=== PATIENT | female | born 1930 | race Caucasian/White ===

== ENCOUNTER 2017-02-06 09:24 | Inpatient (IN) | payer BC, OTHER ==
[2017-02-06] MEDS ORDERED: ACETAMINOPHEN 1000 MG/100 ML VIAL (NON FORMULARY) IVPB ONE (09:40)
[2017-02-06] MEDS ORDERED: HYDROmorphone HCL CARPU-JECT 1 MG/1 ML DISP.SYRIN IVPUSH ONE ×3 (09:40→15:17)
--- NOTE | 2017-02-06 09:47 | PDOC ---
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, and her doctor is aware of this Patient has a 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, and has chronic sciatica intermittently, radiating into her right thigh She did have a CT scan of her LS-spine on 08/25 She was admitted in August for intractable pain and also had a UTI at that time , and she was admitted for pain control, and then sent to rehabilitation She did see a interventional pain physician, and had an epidural injection, which did help for a while Patient has had a few weeks of progressive low back pain and sciatica, which came on spontaneously The pain has become excruciating in the past 24 hours, and she is in so much pain that she is having difficulty getting up to walk with her walker She did see her primary care physician, Dr. Epstein yesterday, and was started on mobic, which she states has not helped the pain She denies any dysuria urgency or frequency She denies any urine or bowel symptoms She denies any weakness in her leg She denies any fever or chills She denies any loss of sensation in her legs She denies any fall or injury as the cause of this pain exacerbation She denies any other complaints at this time, and the remainder of the review of systems is negative Patient is crying in pain, and arrives by ambulance Past History - Past Medical History Allergies/Adverse Reactions: Allergies Allergy/AdvReac Type Severity Reaction Status Date / Time No Known Allergies Allergy Verified 02/06/17 09:26 Home Medications: Ambulatory Orders Aspirin [Ecotrin] 81 mg PO DAILY 02/06/17 Calcium 250Mg/Vit-D 125 Units [Oscal 250 mg+D -] 1 combo PO DAILY 02/06/17 Diltiazem Cd [Cardizem Cd -] 300 mg PO DAILY 02/06/17 Docusate Sodium [Colace -] 200 mg PO DAILY 02/06/17 Hydrochlorothiazide [Hctz -] 12.5 mg PO DAILY 02/06/17 Latanoprost 0.005% Eye Drops [Xalatan 0.005% Eye Drops -] 1 drop .ROUTE HS 02/06 Levothyroxine [Synthroid -] 50 mcg PO ASDIR 02/06/17 Levothyroxine [Synthroid -] 100 mcg PO ASDIR 02/06/17 Lisinopril [Prinivil -] 40 mg PO DAILY 02/06/17 Losartan Potassium [Cozaar] 100 mg PO DAILY 02/06/17 Meloxicam [Mobic (Nf) -] 15 mg PO DAILY 02/06/17 Metformin HCl [Glucophage] 1,000 mg PO HS 02/06/17 Nebivolol HCl [Bystolic] 40 mg PO HS 02/06/17 Simvastatin [Zocor] 10 mg PO HS 02/06/17 Cancer: Yes (LEFT BREAST LUMPECTOMY) Diabetes: Yes HTN: Yes Thyroid Disease: Yes - Psycho/Social/Smoking Cessation Hx Anxiety: No Suicidal Ideation: No Smoking History: Never smoked Have you smoked in the past 12 months: No Number of Cigarettes Smoked Daily: 0 Cigars Per Day: 0 Hx Alcohol Use: No Drug/Substance Use Hx: No Substance Use Type: None *Physical Exam - Physical Exam Comments: 02/06/17 09:47 Physical exam GENERAL: The patient is awake, alert, and writhing in pain HEAD: Normal with no signs of trauma. EYES: sclera anicteric, conjunctiva are normal. ENT: Moist mucous membranes. NECK: Normal range of motion, supple LUNGS: Breath sounds equal, clear to auscultation bilaterally. No wheezes, and no crackles. HEART: Regular rate and rhythm, normal S1 and S2 without murmur, rub or gallop. ABDOMEN: Soft, nontender, normoactive bowel sounds. No guarding, no rebound. No masses appreciated. CHEST WALL: Patient is status post right mastectomy, and left lumpectomy EXTREMITIES: There is edema in the lower extremities bilaterally BACK: There is no point tenderness on the C-spine T-spine or LS-spine There is right paraspinal tenderness, and right buttock/sciatic area tenderness There is positive straight leg raising on the right for pain, but not numbness or tingling Motor strength is equal in the lower extremities bilaterally, with good dorsi flexion and plantar flexion of the feet bilaterally Intact in the lower extremities bilaterally NEUROLOGICAL: He is alert and answering questions, and moving all extremities PSYCH: Normal mood, normal affect. SKIN: Warm, Dry, ED Treatment Course - LABORATORY CBC & Chemistry Diagram: 02/08/17 09:35 02/08/17 09:35 - RADIOLOGY Radiology Studies Ordered: Category Date Time Status SPINE-LUMBAR SACRAL [RAD] Stat Radiology 02/06/17 09:41 Ordered Medical Decision Making - Medical Decision Making 02/06/17 09:52 Exacerbation exacerbation of severe low back pain with sciatica, patient is crying in pain, there is no other warm symptoms, although there is a remote history of breast cancer On patient's last admission, she was hyponatremic, with a sodium of 129, which did correct during the course of her inpatient stay I just received a call from the lab that her sodium is 121, which is significantly lower than her prior admission Will start gentle hydration with normal saline 02/06/17 10:39 EKG Normal sinus rhythm 70, normal axis Borderline first degree AV block QRS duration 112 ms QTC 440 Otherwise essentially normal EKG 02/06/17 10:49 Laboratory Results - last 24 hr 02/06/17 02/06/17 09:45 09:49 WBC 10.9 H RBC 4.24 Hgb 11.9 D Hct 35.8 MCV 84.5 MCHC 33.1 RDW 15.0 D Plt Count 425 D MPV 6.6 L Sodium 121 L* Potassium 4.0 Chloride 88 L D Carbon Dioxide 23 Anion Gap 10 BUN 18 Creatinine 0.7 Creat Clearance w eGFR > 60 Random Glucose 163 H Calcium 9.2 Total Bilirubin 0.6 AST 31 D ALT 15 Alkaline Phosphatase 101 H D Total Protein 7.3 Albumin 4.0 Patient starting to feel more comfortable with pain meds Patient being gently hydrated with normal saline Has not produced a urine specimen yet Patient did have a CT of her LS-spine with her last admission, and has not fallen or injured herself since that time Would hold off on repeating the CT of the L-spine at this time, MRI may be more helpful at this time Impression, intractable back pain with sciatica, and severe hyponatremia 02/06/17 11:01 Case discussed with hospitalist-will admit *DC/Admit/Observation/Transfer Diagnosis at time of Disposition: Back pain with sciatica, Hyponatremia - Discharge Dispostion Condition at time of disposition: Stable Admit: Yes
[2017-02-06] MEDS ORDERED: ACETAMINOPHEN INJECTION 100 ML IVPB ONE (09:51)
[2017-02-06] MEDS ORDERED: HYDROmorphone HCL CARPU-JECT 2 MG/1 ML DISP.SYRIN ONE ×3 (09:51→15:20)
[2017-02-06 09:54] LABS: MCHC 33.1 g/dl (32.0-36.0); MEAN CELL VOLUME 84.5 fl (80-96); MEAN PLT VOLUME 6.6 fl (7.5-11.1); PLATELET COUNT 425 K/MM3 (134-434); WHITE BLOOD COUNT 10.9 K/mm3 (4.0-10.0)
[2017-02-06 10:14] LABS: ALK PHOS 101 U/L (32-92); ANION GAP 10 (8-16); BILIRUBIN,TOTAL 0.6 mg/dl (0.2-1.0); CALCIUM 9.2 mg/dl (8.4-10.2); CO2 23 mmol/L (22-28); CREATININE 0.7 mg/dl (0.6-1.3); GLUCOSE,RANDOM 163 mg/dl (74-106); SGOT/AST 31 U/L (10-42); SGPT/ALT 15 U/L (10-40); TOT PROT 7.3 g/dl (6.4-8.3)
[2017-02-06] MEDS ORDERED: SODIUM CHLORIDE 1,000 ML IV SCH ×2 (10:45→14:45)
[2017-02-06 10:49] LABS: CPK(DFH) 47 IU/L (26-140)
[2017-02-06 11:00] LABS: TROPONIN I (DFP) < 0.03 ng/ml (0.03-0.50)
[2017-02-06 11:30] LABS: URINE APPEARANCE Clear; URINE BILIRUBIN Negative (NEGATIVE); URINE BLOOD Negative (NEGATIVE); URINE GLUCOSE (UA) Negative (NEGATIVE); URINE KETONE Negative (NEGATIVE); URINE LEUK ESTERASE Negative (NEGATIVE); URINE NITRITE Negative (NEGATIVE); URINE UROBILINOGEN 0.2 E.U/dl (0.2-1.0)
[2017-02-06 11:43] LABS: URINE COLOR YELLOW; URINE PROTEIN 2+ (NEGATIVE)
[2017-02-06 11:44] LABS: URINE BACTERIA FEW /hpf (NEGATIVE); URINE RBC 0-3 /hpf (0-3); URINE WBC 0-3 (3-5)
[2017-02-06] MEDS ORDERED: LEVOTHYROXINE NA 50 MCG TABLET (FP) PO SCH (14:30)
[2017-02-06] MEDS ORDERED: LEVOTHYROXINE NA 100 MCG TABLET (FP) PO SCH (14:30)
[2017-02-06] MEDS ORDERED: oxyCODONE HCL 5 MG TABLET PO PRN (14:33)
[2017-02-06] MEDS ORDERED: ONDANSETRON 4 MG/2 ML VIAL IVPB PRN (14:42)
[2017-02-06] MEDS ORDERED: ONDANSETRON 4 MG/2 ML VIAL IVPB ONE (14:50)
[2017-02-06 19:36] LABS: CALCIUM 8.6 mg/dl (8.4-10.2); CREATININE 0.7 mg/dl (0.6-1.3)
[2017-02-06] MEDS ORDERED: PT OWN MED DRAWER 7, Y5N ONE (21:01)
[2017-02-06] MEDS: ATORVASTATIN CA 10 MG TABLET (FP) PO SCH (21:15)
[2017-02-06] MEDS: LATANOPROST 0.005% OPHTH SOLN 2.5ML BOTTLE OU SCH (21:15)
[2017-02-06] MEDS: DOCUSATE SODIUM 100 MG CAPSULE (FP) PO SCH (22:00)
[2017-02-06] MEDS ORDERED: PATIENT'S OWN MEDICATION (NON-FORMULARY) (Simvastatin 10 MG) PO SCH (22:00)
[2017-02-06] MEDS ORDERED: PATIENT'S OWN MEDICATION (NON-FORMULARY) (Metformin Hcl [Glucophage] 1,000 MG) PO SCH (22:00)
[2017-02-06] MEDS ORDERED: NEBIVOLOL HCL 40 MG PO SCH (22:00)
[2017-02-06] MEDS ORDERED: metFORMIN HCL 500 MG TABLET (FP) PO SCH (22:00)
[2017-02-06] MEDS: NEBIVOLOL 10 MG TABLET (FP) PO SCH (22:09)
[2017-02-06] MEDS: ACETAMINOPHEN 325 MG TABLET (FP) PO PRN (22:10)
--- NOTE | 2017-02-06 22:20 | HP ---
CHIEF COMPLAINT: back and leg pain PCP: Dr. Epstein, Cardio Dr. Castillo HISTORY OF PRESENT ILLNESS: This is a 86 year old female with a past medical history of BrCA, HTN, HLD, DM, hypothyroidism who presented to the ED with complaint of back pain radiating down right leg. Pt states she is having difficulty walking due to the pain. Improved with medication in ED. Pt denies chest pain, SOB, abdominal pain, N/V/ D. Reports she frequently gets constipation. Pt also reports that she has not been eating or drinking properly due to the pain. ER course was notable for: (1) given dilaudid 0.5mg x 3 doses Recent Travel: pt denies PAST MEDICAL/SURGICAL HISTORY: HTN HLD DM Hypothyroid s/p thyroidectomy 1960 Glaucoma R BrCA, s/p mastectomy, L lumpectomy colon polyps s/p removal, not cancerous Social History: Smoking: Pt denies Alcohol: Pt denies Drugs: Pt denies Family History:mother , BrCa age 55; father in his 60s, unknown ; 2 brothers with no PMH; son on dialysis; 3 daughters, healthy Allergies No Known Allergies Allergy (Verified 02/06/17 09:26) HOME MEDICATIONS: 3 Medication Instructions Recorded Aspirin [Ecotrin] 81 mg PO DAILY 02/06/17 Calcium 250Mg/Vit-D 125 Units 1 combo PO DAILY 02/06/17 [Oscal 250 mg+D -] Diltiazem Cd [Cardizem Cd -] 300 mg PO DAILY 02/06/17 Docusate Sodium [Colace -] 200 mg PO DAILY 02/06/17 Hydrochlorothiazide [Hctz -] 12.5 mg PO DAILY 02/06/17 Latanoprost 0.005% Eye Drops 1 drop .ROUTE HS 02/06/17 [Xalatan 0.005% Eye Drops -] Levothyroxine [Synthroid -] 50 mcg PO ASDIR 02/06/17 Levothyroxine [Synthroid -] 100 mcg PO ASDIR 02/06/17 Lisinopril [Prinivil -] 40 mg PO DAILY 02/06/17 Losartan Potassium [Cozaar] 100 mg PO DAILY 02/06/17 Meloxicam [Mobic (Nf) -] 15 mg PO DAILY 02/06/17 Metformin HCl [Glucophage] 1,000 mg PO HS 02/06/17 Nebivolol HCl [Bystolic] 40 mg PO HS 02/06/17 Simvastatin [Zocor] 10 mg PO HS 02/06/17 REVIEW OF SYSTEMS CONSTITUTIONAL: Absent: fever, chills, diaphoresis, generalized weakness, malaise, loss of appetite, weight change HEENT: Absent: rhinorrhea, nasal congestion, throat pain, throat swelling, difficulty swallowing, mouth swelling, ear pain, eye pain, visual changes CARDIOVASCULAR: Absent: chest pain, syncope, palpitations, irregular heart rate, lightheadedness , peripheral edema RESPIRATORY: Absent: cough, shortness of breath, dyspnea with exertion, orthopnea, wheezing, stridor, hemoptysis GASTROINTESTINAL: Absent: abdominal pain, abdominal distension, nausea, vomiting, diarrhea, constipation, melena, hematochezia GENITOURINARY: Absent: dysuria, frequency, urgency, hesitancy, hematuria, flank pain, genital pain MUSCULOSKELETAL: Present: back pain radiating down right leg Absent: myalgia, arthralgia, joint swelling, back pain, neck pain SKIN: Absent: rash, itching, pallor HEMATOLOGIC/IMMUNOLOGIC: Absent: easy bleeding, easy bruising, lymphadenopathy, frequent infections ENDOCRINE: Absent: unexplained weight gain, unexplained weight loss, heat intolerance, cold intolerance NEUROLOGIC: Absent: headache, focal weakness or paresthesias, dizziness, unsteady gait, seizure, mental status changes, bladder or bowel incontinence PSYCHIATRIC: Absent: anxiety, depression, suicidal or homicidal ideation, hallucinations. PHYSICAL EXAMINATION Vital Signs - 24 hr 3 02/06/17 02/06/17 02/06/17 15:00 15:19 16:14 Temperature 98.7 F 97.8 F 98.7 F Pulse Rate 76 76 Pulse Rate [ 81 Right] Respiratory 18 18 18 Rate Blood Pressure 141/53 141/53 Blood Pressure 178/65 [Left Arm] O2 Sat by Pulse 99 93 L Oximetry (%) 3 02/06/17 02/06/17 19:00 21:00 Temperature 99.3 F Pulse Rate 74 Pulse Rate [ Right] Respiratory 18 Rate Blood Pressure 124/49 Blood Pressure [Left Arm] O2 Sat by Pulse 96 Oximetry (%) GENERAL: Awake, alert, and fully oriented, in no acute distress. HEAD: Normal with no signs of trauma. EYES: Pupils equal, round and reactive to light, extraocular movements intact, sclera anicteric, conjunctiva clear. No lid lag. EARS, NOSE, THROAT: Ears normal, nares patent, oropharynx clear without exudates. Moist mucous membranes. NECK: Normal range of motion, supple without lymphadenopathy, JVD, or masses. LUNGS: Breath sounds equal, crackles bilat bases. No wheezes. No accessory muscle use. HEART: Regular rate and rhythm, normal S1 and S2 without murmur, rub or gallop. ABDOMEN: Soft, nontender, not distended, normoactive bowel sounds, no guarding, no rebound, no masses. No hepatomegaly or splenomegaly. MUSCULOSKELETAL: Normal range of motion at all joints. No bony deformities or tenderness. No CVA tenderness. UPPER EXTREMITIES: 2+ pulses, warm, well-perfused. No cyanosis. No clubbing. No peripheral edema. LOWER EXTREMITIES: 2+ pulses, warm, well-perfused. No calf tenderness. trace peripheral edema. + pain on right straight leg raise NEUROLOGICAL: Cranial nerves II-XII intact. Normal speech. Normal gait. PSYCHIATRIC: Cooperative. Good eye contact. Appropriate mood and affect. SKIN: Warm, dry, normal turgor, no rashes or lesions noted, normal capillary refill. Laboratory Results - last 24 hr 3 02/06/17 02/06/17 02/06/17 09:45 09:49 10:34 WBC 10.9 H RBC 4.24 Hgb 11.9 D Hct 35.8 MCV 84.5 MCHC 33.1 RDW 15.0 D Plt Count 425 D MPV 6.6 L Sodium 121 L* Potassium 4.0 Chloride 88 L D Carbon Dioxide 23 Anion Gap 10 BUN 18 Creatinine 0.7 Creat Clearance w eGFR > 60 POC Glucometer Random Glucose 163 H Calcium 9.2 Total Bilirubin 0.6 AST 31 D ALT 15 Alkaline Phosphatase 101 H D Creatine Kinase 47 Troponin I < 0.03 L Total Protein 7.3 Albumin 4.0 Urine Color Urine Appearance Urine pH Ur Specific [place] Urine Protein Urine Glucose (UA) Urine Ketones Urine Blood Urine Nitrite Urine Bilirubin Urine Urobilinogen Ur Leukocyte Esterase Urine RBC Urine WBC Ur Epithelial Cells Urine Bacteria Hyaline Casts 3 02/06/17 02/06/17 02/06/17 11:30 18:50 22:17 WBC RBC Hgb Hct MCV MCHC RDW Plt Count MPV Sodium 122 L* Potassium 3.7 Chloride 89 L Carbon Dioxide 23 Anion Gap 10 BUN 17 Creatinine 0.7 Creat Clearance w eGFR POC Glucometer 149 Random Glucose 211 H D Calcium 8.6 Total Bilirubin AST ALT Alkaline Phosphatase Creatine Kinase Troponin I Total Protein Albumin Urine Color Yellow Urine Appearance Clear Urine pH 7.0 Ur Specific [place] 1.020 Urine Protein 2+ H Urine Glucose (UA) Negative Urine Ketones Negative Urine Blood Negative Urine Nitrite Negative Urine Bilirubin Negative Urine Urobilinogen 0.2 e.u/dl Ur Leukocyte Esterase Negative Urine RBC 0-3 Urine WBC 0-3 Ur Epithelial Cells Few Urine Bacteria Few Hyaline Casts 3-5 ASSESSMENT/PLAN: 86yF with PMH BrCA, HTN, HLD, DM, hypothyroidism who presented to the ED with complaint of back pain radiating down right leg. She has been admitted for observation for intractable back pain. Intractable back pain - previous hospitalization for same in August. - will start robaxin and celebrex as they were effective at this that time - cont oxycodone, start miralax for constipation - pain management consult hyponatremia - cont gentle iv hydration. Hold HCTZ HTN - cont home medications except HCTZ HLD - home zocor changed to formulary lipitor DM - BGM with Novolog SS TID AC & HS PPX - lovenox 40mg SC qd - protonix 20mg QD while on celebrex FEN - NS @75cc/hr - BMP repeat in am - diabetic diet Dispo: pt currently requires inpatient observation for management of her emergent condition. Visit type - Emergency Visit Emergency Visit: Yes ED Registration Date: 02/06/17 Care time: The patient presented to the Emergency Department on the above date and was hospitalized for further evaluation of their emergent condition. - New Patient This patient is new to me today: Yes Date on this admission: 02/06/17 - Critical Care Critical Care patient: No
[2017-02-06] MEDS: METHOCARBAMOL 500 MG TABLET PO SCH (22:56)
[2017-02-07] MEDS: METHOCARBAMOL 500 MG TABLET PO SCH ×3 (06:22→22:04)
[2017-02-07] MEDS: INSULIN SLIDING SCALE (NOVOLOG) 1 VIAL SQ SCH ×4 (06:29→22:09)
[2017-02-07 08:58] LABS: BASOPHIL 0.7 % (0-2.0); EOSINOPHIL 0.6 % (0-4.5); MCH 28.4 pg (25.7-33.7); MCHC 33.3 g/dl (32.0-36.0); MEAN CELL VOLUME 85.1 fl (80-96); NEUTROPHILS 69.9 % (42.8-82.8); PLATELET COUNT 339 K/MM3 (134-434); RDW 15.4 % (11.6-15.6); WHITE BLOOD COUNT 9.3 K/mm3 (4.0-10.0)
[2017-02-07 09:11] LABS: ALBUMIN 3.1 g/dl (3.5-5.0); ALK PHOS 74 U/L (32-92); ANION GAP 6 (8-16); BILIRUBIN,TOTAL 0.5 mg/dl (0.2-1.0); CALCIUM 8.1 mg/dl (8.4-10.2); CO2 25 mmol/L (22-28); CREATININE 0.7 mg/dl (0.6-1.3); GLUCOSE,RANDOM 103 mg/dl (74-106); MAGNESIUM 1.6 mg/dL (1.8-2.4); PHOSPHOROUS 3.4 mg/dl (2.5-4.6); SGOT/AST 20 U/L (10-42); SGPT/ALT 13 U/L (10-40); TOT PROT 5.5 g/dl (6.4-8.3)
[2017-02-07] MEDS ORDERED: PT OWN MED DRAWER 7, Y5N ONE ×2 (09:26→22:01)
[2017-02-07] MEDS: DILTIAZEM CD 120 MG, DILTIAZEM CD 180 MG PO SCH (09:28)
[2017-02-07] MEDS: ASPIRIN COATED 81 MG TABLET.EC PO SCH (09:29)
[2017-02-07] MEDS: POLYETHYLENE GLYCOL 3350 119 GM BTL PO SCH (09:29)
[2017-02-07] MEDS: LOSARTAN POTASSIUM 50 MG TABLET (FP) PO SCH (09:29)
[2017-02-07] MEDS: CALCIUM 250MG/VIT-D 125 UNITS 1 COMBO TABLET PO SCH (09:36)
[2017-02-07] MEDS ORDERED: PATIENT'S OWN MEDICATION (NON-FORMULARY) (Losartan Potassium [Cozaar] 100 MG) PO SCH (10:00)
[2017-02-07] MEDS ORDERED: LISINOPRIL 20 MG TABLET (FP) PO SCH (10:00)
[2017-02-07] MEDS ORDERED: RANITIDINE HCL 150 MG TABLET (FP) PO SCH (10:00)
[2017-02-07] MEDS ORDERED: CELECOXIB 200 MG CAPSULE PO SCH (10:00)
[2017-02-07] MEDS ORDERED: NEBIVOLOL 10 MG TABLET (FP) PO SCH (10:00)
[2017-02-07] MEDS ORDERED: PATIENT'S OWN MEDICATION (NON-FORMULARY) (Lisinopril [Prinivil -] 40 MG) PO SCH (10:00)
[2017-02-07] MEDS ORDERED: PATIENT'S OWN MEDICATION (NON-FORMULARY) (Meloxicam 15 MG) PO SCH (10:00)
[2017-02-07] MEDS ORDERED: DOCUSATE SODIUM 100 MG CAPSULE (FP) PO SCH (10:00)
[2017-02-07] MEDS ORDERED: PANTOPRAZOLE 20 MG TABLET (FP) PO SCH (10:00)
[2017-02-07] MEDS ORDERED: ENOXAPARIN NA (PORCINE) 40 MG/0.4 ML DISP.SYRIN SQ SCH (10:00)
--- NOTE | 2017-02-07 10:32 | PN ---
[id number] OBJECTIVE: patient is a 86 year old female with a past medical history of BrCA, HTN, HLD, DM, hypothyroidism. patient was admitted from the hospital for intractable back pain and hyponatremia. Vital Signs Period Temp Pulse Resp BP Sys/[place] Pulse Ox Last 24 Hr 97.8 F-99.9 F 69-81 17-18 124-178/49-65 93-100 GENERAL: The patient is awake, alert, and fully oriented, in no acute distress. HEAD: Normal with no signs of trauma. EYES: PERRL, extraocular movements intact, sclera anicteric, conjunctiva clear. No ptosis. ENT: Ears normal, nares patent, oropharynx clear without exudates, moist mucous membranes. NECK: Trachea midline, full range of motion, supple. LUNGS: Breath sounds equal, clear to auscultation bilaterally to apexes, crackles to bilateral bases, no wheezes, no accessory muscle use. HEART: Regular rate and rhythm, S1, S2 without murmur, rub or gallop. ABDOMEN: Soft, nontender, nondistended, normoactive bowel sounds, no guarding, no rebound, no hepatosplenomegaly, no masses. EXTREMITIES: 2+ pulses, warm, well-perfused, no edema. paraspinal tenderness noted to L4-L5, point tenderness noted to the sciatic notch NEUROLOGICAL: Cranial nerves II through XII grossly intact. Normal speech, gait not observed. PSYCH: Normal mood, normal affect. SKIN: Warm, dry, normal turgor, no rashes or lesions noted Laboratory Results - last 24 hr 02/06/17 02/06/17 02/07/17 18:50 22:17 06:28 WBC RBC Hgb Hct MCV MCHC RDW Plt Count MPV Neutrophils % Lymphocytes % Monocytes % Eosinophils % Basophils % Sodium 122 L* Potassium 3.7 Chloride 89 L Carbon Dioxide 23 Anion Gap 10 BUN 17 Creatinine 0.7 POC Glucometer 149 122 Random Glucose 211 H D Calcium 8.6 02/07/17 07:34 WBC 9.3 RBC 3.31 L D Hgb 9.4 L D Hct 28.2 L D MCV 85.1 MCHC 33.3 RDW 15.4 Plt Count 339 D MPV 7.0 L Neutrophils % 69.9 Lymphocytes % 17.7 D Monocytes % 11.1 H D Eosinophils % 0.6 D Basophils % 0.7 Sodium Potassium Chloride Carbon Dioxide Anion Gap BUN Creatinine POC Glucometer Random Glucose Calcium Active Medications Generic Name Dose Route Start Last Admin Trade Name Freq PRN Reason Stop Dose Admin Acetaminophen 650 mg 02/06/17 14:20 02/06/17 22:10 Tylenol - PO 650 mg Q4H PRN Administration PAIN OR FEVER Aspirin 81 mg 02/07/17 10:00 02/07/17 09:29 Ecotrin - PO 81 mg DAILY [facility] Administration Atorvastatin Calcium 10 mg 02/06/17 22:00 02/06/17 21:15 Lipitor - PO 10 mg HS [facility] Administration Calcium/Vitamin D 1 tab 02/07/17 10:00 02/07/17 09:36 Oscal 250 Mg+D - PO 1 tab DAILY [facility] Administration Celecoxib 200 mg 02/07/17 10:00 02/07/17 09:28 Celebrex - PO 200 mg DAILY [facility] Administration Diltiazem HCl 120 mg/ 300 mg 02/07/17 10:00 02/07/17 09:28 Diltiazem HCl 180 mg PO 300 mg DAILY [facility] Administration Docusate Sodium 200 mg 02/06/17 22:00 02/06/17 22:00 Colace - PO 200 mg HS [facility] Administration Enoxaparin Sodium 40 mg 02/07/17 10:00 02/07/17 09:29 Lovenox - SQ 40 mg DAILY [facility] Administration Sodium Chloride 1,000 mls @ 75 mls/hr 02/06/17 14:45 Normal Saline - IV ASDIR [facility] Insulin Aspart 1 vial 02/07/17 07:00 02/07/17 06:29 Novolog Vial Sliding Scale - SQ Not Given ACHS [facility] Protocol Latanoprost 1 drop 02/06/17 22:00 02/06/17 21:15 Xalatan 0.005% Eye Drops - OU 1 drop HS [facility] Administration Levothyroxine Sodium 150 mcg 02/07/17 11:00 Synthroid - PO DAILY@0700 [facility] Lisinopril 40 mg 02/07/17 10:00 02/07/17 09:28 Prinivil PO 40 mg DAILY [facility] Administration Losartan Potassium 100 mg 02/07/17 10:00 02/07/17 09:29 Cozaar - PO 100 mg DAILY [facility] Administration Metformin HCl 1,000 mg 02/06/17 22:00 02/06/17 21:15 Glucophage - PO 1,000 mg HS [facility] Administration Methocarbamol 1,000 mg 02/06/17 22:30 02/07/17 06:22 Robaxin - PO 1,000 mg TID [facility] Administration Nebivolol 40 mg 02/06/17 22:00 02/06/17 22:09 Bystolic - PO 40 mg HS [facility] Administration Ondansetron HCl 4 mg 02/06/17 14:42 Zofran Injection IVPB TID PRN NAUSEA AND/OR VOMITING Oxycodone HCl 5 mg 02/06/17 14:33 Roxicodone - PO Q6H PRN PAIN Pantoprazole Sodium 20 mg 02/07/17 10:00 02/07/17 09:30 Protonix - PO 20 mg DAILY [facility] Administration Polyethylene Glycol 17 gm 02/07/17 10:00 02/07/17 09:29 Miralax (For Daily Use) - PO 17 gm DAILY [facility] Administration imaging Chest x-ray: Mild increase density to the left lung base, may be related to soft tissue overlying, no infiltrates noted effusions noted ASSESSMENT/PLAN: 1)Intractable back pain - continue Robaxin and Celebrex, with when necessary oxycodone - Patient does have a history of breast CA and passed reports worsening of back pain, will order MRI of lumbar spine to rule out metastasis - appreciate input of Dr Nath (pain managment), patient has been evaluated by as an outpatient 2) card htm - continue Losartan and atenolol hld - continue lipitor 3) endo: - Continue fingersticks before meals and at bedtime with regular insulin coverage Hypothyroidism - Levothyroxine verified with [facility] pharmacy patient takes 50 g levothyroxine for 5 daysthen 100 mg of levothyroxin for 2 days 4) hyponatremia - serum sodium 120 after IV hydration, IV fluids discontinued, stop Protonix - appreicate nput of nephrology F/E/N -Regular Diabetic diet - replete electrolytes as needed PPX - stop Protonix secondary to hyponatremia start Zantac - Lovenox - Physical therapy - OOB - SCD Dispo: requires in patient observation care Visit type - Emergency Visit Emergency Visit: Yes ED Registration Date: 02/06/17 Care time: The patient presented to the Emergency Department on the above date and was hospitalized for further evaluation of their emergent condition. - New Patient This patient is new to me today: Yes Date on this admission: 02/07/17 - Critical Care Critical Care patient: No - Discharge Referral Referred to [facility] Med P.C.: No
[2017-02-07] MEDS ORDERED: MAGNESIUM SULFATE 2 GM in SODIUM CHLORIDE 100 ML IVPB ONE (10:34)
[2017-02-07] MEDS ORDERED: LEVOTHYROXINE NA 150 MCG TABLET PO SCH (11:00)
[2017-02-07] MEDS ORDERED: MAGNESIUM SULF 50% (8.12 MEQ/2 ML-1 GM VIAL) IVPB ONE (11:15)
[2017-02-07] MEDS ORDERED: POTASSIUM CHLORIDE TABS 20 MEQ TABLET.ER (FP) PO ONE (12:10)
--- NOTE | 2017-02-07 12:22 | EKG ---
Test Reason : Blood Pressure : / mmHG Vent. Rate : 070 BPM Atrial Rate : 070 BPM P-R Int : 192 ms QRS Dur : 112 ms QT Int : 408 ms P-R-T Axes : 085 017 007 degrees QTc Int : 440 ms NORMAL SINUS RHYTHM NON-SPECIFIC INTRA-VENTRICULAR CONDUCTION BLOCK NO PREVIOUS ECGS AVAILABLE Confirmed by MD SAVANNA, MELLY ([id number]) on 02/07/2017 12:22:20 PM Referred By: IZABELA HERNANDEZ Confirmed By:MELLY CORRALES MD
[2017-02-07] MEDS ORDERED: INSULIN (NOVOLOG) ASPART 100 UNITS/ML 10ML VIAL ONE ×2 (16:50→22:08)
--- NOTE | 2017-02-07 18:00 | CONSULT ---
Consult Consult Specialty:: Nephrology Reason for Consultation:: hyponatremia - History of Present Illness Chief Complaint: back pain History of Present Illness: Pt is an 86 year old female with pmhx of HTN, breast cancer, hyperlipidemia, hypothyroidism and arthritis who presents to the ER with back pain. She has history of arthritis and says that it has been difficult to deal with. She was found to be hyponatremic and I was called to evaluate her. She denies history of hyponatremia however did have an episode in the past based on her chart. Pt says she was on hctz 12.5 for years and the dose was recently increased to 25 mg. She is on NSAIDs. She also says she does try to drink "alot" of water. She denies shortness of breath. She denies dysuria or hematuria. - History Source History Provided By: Patient, Medical Record - Past Medical History Cardio/Vascular: Yes: HTN, Hyperlipdemia Heme/Onc: Yes: Cancer, Other (breast cancer) Musculoskeletal: Yes: Chronic low back pain, Osteoarthritis Endocrine: Yes: Hypothyroidism - Alcohol/Substance Use Hx Alcohol Use: No - Smoking History Smoking history: Never smoked Have you smoked in the past 12 months: No Aproximately how many cigarettes per day: 0 Home Medications - Allergies Allergies/Adverse Reactions: Allergies Allergy/AdvReac Type Severity Reaction Status Date / Time No Known Allergies Allergy Verified 02/06/17 09:26 - Home Medications Home Medications: Ambulatory Orders Aspirin [Ecotrin] 81 mg PO DAILY 02/06/17 Calcium 250Mg/Vit-D 125 Units [Oscal 250 mg+D -] 1 combo PO DAILY 02/06/17 Diltiazem Cd [Cardizem Cd -] 300 mg PO DAILY 02/06/17 Docusate Sodium [Colace -] 200 mg PO DAILY 02/06/17 Hydrochlorothiazide [Hctz -] 12.5 mg PO DAILY 02/06/17 Latanoprost 0.005% Eye Drops [Xalatan 0.005% Eye Drops -] 1 drop .ROUTE HS 02/06 Levothyroxine [Synthroid -] 50 mcg PO ASDIR 02/06/17 Levothyroxine [Synthroid -] 100 mcg PO ASDIR 02/06/17 Lisinopril [Prinivil -] 40 mg PO DAILY 02/06/17 Losartan Potassium [Cozaar] 100 mg PO DAILY 02/06/17 Meloxicam [Mobic (Nf) -] 15 mg PO DAILY 02/06/17 Metformin HCl [Glucophage] 1,000 mg PO HS 02/06/17 Nebivolol HCl [Bystolic] 40 mg PO HS 02/06/17 Simvastatin [Zocor] 10 mg PO HS 02/06/17 Family Disease History - Family Disease History Family History: Denies Review of Systems - Review of Systems Constitutional: reports: No Symptoms Eyes: reports: No Symptoms HENT: reports: No Symptoms Neck: reports: No Symptoms Cardiovascular: reports: No Symptoms Respiratory: reports: No Symptoms Gastrointestinal: reports: No Symptoms Genitourinary: reports: No Symptoms Musculoskeletal: reports: Back Pain, Extremity Pain, Joint Pain Integumentary: reports: No Symptoms Neurological: reports: No Symptoms Endocrine: reports: No Symptoms Psychiatric: reports: No Symptoms Physical Exam Vital Signs: Vital Signs Temperature 97.9 F 02/07/17 14:29 Pulse Rate 71 02/07/17 14:29 Respiratory Rate 18 02/07/17 14:29 Blood Pressure 151/55 02/07/17 14:29 O2 Sat by Pulse Oximetry (%) 96 02/07/17 14:29 Constitutional: Yes: Calm Eyes: Yes: Conjunctiva Clear HENT: Yes: Atraumatic Neck: Yes: Supple Cardiovascular: Yes: S1, S2 Respiratory: Yes: CTA Bilaterally Gastrointestinal: Yes: Soft, Abdomen, Obese Renal/: Yes: WNL Musculoskeletal: Yes: Back Pain Edema: Yes Edema: LLE: 1+, RLE: 1+ Neurological: Yes: Oriented Psychiatric: Yes: Oriented Labs: CBC, BMP 02/07/17 07:34 02/07/17 07:34 Laboratory Tests 06/08/16 08/24/16 08/24/16 18:45 10:15 19:30 Sodium 135 L 129 L 138 Chloride Carbon Dioxide Anion Gap BUN Creatinine Hemoglobin A1c % 08/25/16 02/06/17 02/06/17 06:00 09:45 18:50 Sodium 139 121 L* 122 L* Chloride Carbon Dioxide Anion Gap BUN Creatinine Hemoglobin A1c % 02/07/17 02/07/17 07:34 07:34 Sodium 120 L* Chloride 89 L Carbon Dioxide 25 Anion Gap 6 L BUN 18 Creatinine 0.7 Hemoglobin A1c % 7.2 H D Imaging - Results Chest X-ray: Report Reviewed Problem List - Problems (1) Back pain with sciatica Code(s): M54.30 - SCIATICA, UNSPECIFIED SIDE M54.9 - DORSALGIA, UNSPECIFIED (2) Hyponatremia Code(s): E87.1 - HYPO-OSMOLALITY AND HYPONATREMIA (3) Back pain Code(s): M54.9 - DORSALGIA, UNSPECIFIED Qualifiers: Back pain location: low back pain Chronicity: acute Back pain laterality: right Sciatica presence: with sciatica Sciatica laterality: sciatica of right side Qualified Code(s): M54.41 - Lumbago with sciatica , right side (4) Hypertension Code(s): I10 - ESSENTIAL (PRIMARY) HYPERTENSION Assessment/Plan Current Medications Generic Name Dose Route Start Last Admin Trade Name Freq PRN Reason Stop Dose Admin Acetaminophen 650 mg 02/06/17 14:20 02/06/17 22:10 Tylenol - PO 650 mg Q4H PRN Administration PAIN OR FEVER Aspirin 81 mg 02/07/17 10:00 02/07/17 09:29 Ecotrin - PO 81 mg DAILY [facility] Administration Atorvastatin Calcium 10 mg 02/06/17 22:00 02/06/17 21:15 Lipitor - PO 10 mg HS [facility] Administration Calcium/Vitamin D 1 tab 02/07/17 10:00 02/07/17 09:36 Oscal 250 Mg+D - PO 1 tab DAILY [facility] Administration Celecoxib 200 mg 02/07/17 10:00 02/07/17 09:28 Celebrex - PO 200 mg DAILY [facility] Administration Diltiazem HCl 120 mg/ 300 mg 02/07/17 10:00 02/07/17 09:28 Diltiazem HCl 180 mg PO 300 mg DAILY [facility] Administration Docusate Sodium 200 mg 02/06/17 22:00 02/06/17 22:00 Colace - PO 200 mg HS [facility] Administration Enoxaparin Sodium 40 mg 02/07/17 10:00 02/07/17 09:29 Lovenox - SQ 40 mg DAILY [facility] Administration Insulin Aspart 1 vial 02/07/17 07:00 02/07/17 16:30 Novolog Vial Sliding Scale - SQ 2 unit ACHS [facility] Administration Protocol Latanoprost 1 drop 02/06/17 22:00 02/06/17 21:15 Xalatan 0.005% Eye Drops - OU 1 drop HS [facility] Administration Levothyroxine Sodium 50 mcg 02/08/17 07:00 Synthroid - PO TuWeThFrSa@0700 [facility] Levothyroxine Sodium 100 mcg 02/09/17 07:00 Synthroid - PO SuMo@0700 [facility] Lisinopril 40 mg 02/07/17 10:00 02/07/17 09:28 Prinivil PO 40 mg DAILY [facility] Administration Losartan Potassium 100 mg 02/07/17 10:00 02/07/17 09:29 Cozaar - PO 100 mg DAILY [facility] Administration Methocarbamol 1,000 mg 02/06/17 22:30 02/07/17 14:45 Robaxin - PO 1,000 mg TID [facility] Administration Nebivolol 40 mg 02/06/17 22:00 02/06/17 22:09 Bystolic - PO 40 mg HS [facility] Administration Ondansetron HCl 4 mg 02/06/17 14:42 Zofran Injection IVPB TID PRN NAUSEA AND/OR VOMITING Oxycodone HCl 5 mg 02/06/17 14:33 Roxicodone - PO Q6H PRN PAIN Polyethylene Glycol 17 gm 02/07/17 10:00 02/07/17 09:29 Miralax (For Daily Use) - PO 17 gm DAILY [facility] Administration Ranitidine HCl 150 mg 02/08/17 10:00 Zantac - PO DAILY [facility] Impression 1. Hyponatremia 2. HTN 3. hypothyroidism 4. osteoarthritis 5. chronic back pain 6. hyperlipidemia Plan - will send out workup for hyponatremia including plasma and urine osm, urine sodium, cortisol and tsh - repeat labs in am - will add sodium tabs - stop HCTZ - restrict free water - unclear why pt is on an jackie and an arb, will on lisinopril - monitor blood pressure - attempt to minimize nsaid doses - will follow Dr Smyth
[2017-02-07 20:08] LABS: THYROXINE (T4) 9.2 ug/dl (4.8-13.9)
[2017-02-07 20:14] LABS: THYROID STIMULATING HORMONE 2.85 uIU/ml (0.358-3.74)
[2017-02-07] MEDS: NEBIVOLOL 10 MG TABLET (FP) PO SCH (22:03)
[2017-02-07] MEDS: LATANOPROST 0.005% OPHTH SOLN 2.5ML BOTTLE OU SCH (22:04)
[2017-02-07] MEDS: DOCUSATE SODIUM 100 MG CAPSULE (FP) PO SCH (22:05)
[2017-02-07] MEDS: SODIUM CHLORIDE 1 GM TABLET PO SCH (22:06)
[2017-02-07] MEDS: ATORVASTATIN CA 10 MG TABLET (FP) PO SCH (22:06)
[2017-02-08] MEDS: METHOCARBAMOL 500 MG TABLET PO SCH ×3 (05:30→21:18)
[2017-02-08] MEDS: LEVOTHYROXINE NA 50 MCG TABLET (FP) PO SCH (06:20)
[2017-02-08] MEDS: INSULIN SLIDING SCALE (NOVOLOG) 1 VIAL SQ SCH ×4 (06:41→21:19)
[2017-02-08] MEDS ORDERED: LEVOTHYROXINE NA 50 MCG TABLET (FP) PO SCH (07:00)
[2017-02-08] MEDS ORDERED: LEVOTHYROXINE NA 100 MCG TABLET (FP) PO SCH (07:00)
--- NOTE | 2017-02-08 08:08 | CONSULT ---
Consult Consult Specialty:: back pain Referred by:: hospitalist Reason for Consultation:: back pain - History of Present Illness Chief Complaint: back pain History of Present Illness: 86 year old woman with a history of severe back pain. Patient was seen in my office several months ago and an DEON was performed which helped significantly with her leg pain. Currently she reports unrelenting back pain when standing and walking. Pain score 2/10 at rest and 10/10 with standing. MRI reviewed- NO official report available but there is an ACUTE l1 fx. - Past Medical History Cardio/Vascular: Yes: HTN, Hyperlipdemia Musculoskeletal: Yes: Chronic low back pain, Osteoarthritis Endocrine: Yes: Hypothyroidism - Alcohol/Substance Use Hx Alcohol Use: No - Smoking History Smoking history: Never smoked Have you smoked in the past 12 months: No Aproximately how many cigarettes per day: 0 Home Medications - Allergies Allergies/Adverse Reactions: Allergies Allergy/AdvReac Type Severity Reaction Status Date / Time No Known Allergies Allergy Verified 02/06/17 09:26 - Home Medications Home Medications: Ambulatory Orders Aspirin [Ecotrin] 81 mg PO DAILY 02/06/17 Calcium 250Mg/Vit-D 125 Units [Oscal 250 mg+D -] 1 combo PO DAILY 02/06/17 Diltiazem Cd [Cardizem Cd -] 300 mg PO DAILY 02/06/17 Docusate Sodium [Colace -] 200 mg PO DAILY 02/06/17 Hydrochlorothiazide [Hctz -] 12.5 mg PO DAILY 02/06/17 Latanoprost 0.005% Eye Drops [Xalatan 0.005% Eye Drops -] 1 drop .ROUTE HS 02/06 Levothyroxine [Synthroid -] 50 mcg PO ASDIR 02/06/17 Levothyroxine [Synthroid -] 100 mcg PO ASDIR 02/06/17 Lisinopril [Prinivil -] 40 mg PO DAILY 02/06/17 Losartan Potassium [Cozaar] 100 mg PO DAILY 02/06/17 Meloxicam [Mobic (Nf) -] 15 mg PO DAILY 02/06/17 Metformin HCl [Glucophage] 1,000 mg PO HS 02/06/17 Nebivolol HCl [Bystolic] 40 mg PO HS 02/06/17 Simvastatin [Zocor] 10 mg PO HS 02/06/17 Physical Exam Vital Signs: Vital Signs Temperature 98.8 F 02/08/17 05:40 Pulse Rate 68 02/08/17 05:40 Respiratory Rate 16 02/08/17 05:40 Blood Pressure 153/61 02/08/17 05:40 O2 Sat by Pulse Oximetry (%) 95 02/08/17 05:40 Musculoskeletal: Yes: Back Pain Labs: CBC, BMP 02/07/17 07:34 02/07/17 07:34 Assessment/Plan Acute l1 compression fracture Degenerative spine- chronic with spinal stenosis, herniated disc and spondylolisthesis 1. Patient would like to proceed with a kyphoplasty on Friday. 2. Please hold ASA if no contraindications and all anti-coagulants 3. THe procedure will most likely be around 3-4pm on Friday so have patient NPO after 7am. Please have the patient get an early breakfast Friday morning.
--- NOTE | 2017-02-08 09:21 | PN ---
Progress Note, Physician Chief Complaint: Pt c/o some dizziness and back pain when standing No N/V or diarrhea Has been on fluid restriction and off the HCTZ - Current Medication List Current Medications: Active Medications Acetaminophen (Tylenol -) 650 mg PO Q4H PRN PRN Reason: PAIN OR FEVER Last Admin: 02/06/17 22:10 Dose: 650 mg Aspirin (Ecotrin -) 81 mg PO DAILY [facility] Last Admin: 02/07/17 09:29 Dose: 81 mg Atorvastatin Calcium (Lipitor -) 10 mg PO HS [facility] Last Admin: 02/07/17 22:06 Dose: 10 mg Calcium/Vitamin D (Oscal 250 Mg+D -) 1 tab PO DAILY [facility] Last Admin: 02/07/17 09:36 Dose: 1 tab Celecoxib (Celebrex -) 200 mg PO DAILY [facility] Last Admin: 02/07/17 09:28 Dose: 200 mg Diltiazem HCl 120 mg/ (Diltiazem HCl 180 mg) 300 mg PO DAILY [facility] Last Admin: 02/07/17 09:28 Dose: 300 mg Docusate Sodium (Colace -) 200 mg PO [facility] Last Admin: 02/07/17 22:05 Dose: 200 mg Enoxaparin Sodium (Lovenox -) 40 mg SQ DAILY [facility] Last Admin: 02/07/17 09:29 Dose: 40 mg Insulin Aspart (Novolog Vial Sliding Scale -) 1 vial SQ ACHS [facility] PRN Reason: Protocol Last Admin: 02/08/17 06:41 Dose: Not Given Latanoprost (Xalatan 0.005% Eye Drops -) 1 drop OU [facility] Last Admin: 02/07/17 22:04 Dose: 1 drop Levothyroxine Sodium (Synthroid -) 50 mcg PO TuWeThFrSa@0700 [facility] Last Admin: 02/08/17 06:20 Dose: 50 mcg Levothyroxine Sodium (Synthroid -) 100 mcg PO SuMo@0700 [facility] Losartan Potassium (Cozaar -) 100 mg PO DAILY [facility] Last Admin: 02/07/17 09:29 Dose: 100 mg Methocarbamol (Robaxin -) 1,000 mg PO TID [facility] Last Admin: 02/08/17 05:30 Dose: 1,000 mg Nebivolol (Bystolic -) 40 mg PO [facility] Last Admin: 02/07/17 22:03 Dose: 40 mg Ondansetron HCl (Zofran Injection) 4 mg IVPB TID PRN PRN Reason: NAUSEA AND/OR VOMITING Oxycodone HCl (Roxicodone -) 5 mg PO Q6H PRN PRN Reason: PAIN Polyethylene Glycol (Miralax (For Daily Use) -) 17 gm PO DAILY [facility] Last Admin: 02/07/17 09:29 Dose: 17 gm Ranitidine HCl (Zantac -) 150 mg PO DAILY [facility] Sodium Chloride (Sodium Chloride Tablet -) 1 gm PO BID [facility] Last Admin: 02/07/17 22:06 Dose: 1 gm - Objective Vital Signs: Vital Signs Temperature 98.8 F 02/08/17 05:40 Pulse Rate 68 02/08/17 05:40 Respiratory Rate 16 02/08/17 08:22 Blood Pressure 153/61 02/08/17 05:40 O2 Sat by Pulse Oximetry (%) 95 02/08/17 05:40 Constitutional: Yes: No Distress Cardiovascular: Yes: S1, S2 Respiratory: Yes: CTA Bilaterally Gastrointestinal: Yes: Soft. No: Tenderness, Rebound Edema: No Labs: CBC, BMP 02/07/17 07:34 02/07/17 07:34 Assessment/Plan Impression 1. Hyponatremia while pt was on HCTZ 2. HTN 3. hypothyroidism 4. osteoarthritis 5. chronic back pain 6. hyperlipidemia 7. Anemia on MURO 2 inhibitor and Lovenox Plan Await today's labs Once serum sodium improves to above 130 to begin to unrestrict PO fluids Off HCTZ Restrict free water D/C the Muro 2 inhibitor till GIB excluded Anemia w/u and R/O GI blood loss Discussed with Hospitalist Dr Landeros
--- NOTE | 2017-02-08 09:23 | PN ---
[id number] OBJECTIVE: Hospital day #3 for this 86 year old female admitted 02/06 with low back pain secondary to L1 compression fracture and hyponatremia. Vital Signs Period Temp Pulse Resp BP Sys/Palomo Pulse Ox Last 24 Hr 97.9 F-99 F 68-71 16-18 136-153/55-71 95-96 GENERAL: The patient is awake, alert, and fully oriented, in no acute distress. HEAD: Normal with no signs of trauma. EYES: PERRL, extraocular movements intact, sclera anicteric, conjunctiva clear. No ptosis. ENT: Ears normal, nares patent, oropharynx clear without exudates, moist mucous membranes. NECK: Trachea midline, full range of motion, supple. LUNGS: Breath sounds equal, clear to auscultation bilaterally, no wheezes, no crackles, no accessory muscle use. HEART: Regular rate and rhythm, S1, S2 without murmur, rub or gallop. ABDOMEN: Soft, nontender, nondistended, normoactive bowel sounds, no guarding, no rebound, no hepatosplenomegaly, no masses. EXTREMITIES: 2+ pulses, warm, well-perfused, no edema. NEUROLOGICAL: Cranial nerves II through XII grossly intact. Normal speech, gait not observed. Diffuse paraspinal lumbar tenderness. PSYCH: Normal mood, normal affect. SKIN: Warm, dry, normal turgor, no rashes or lesions noted Laboratory Results - last 24 hr 02/07/17 02/07/17 02/07/17 07:34 07:34 11:56 Sodium 120 L* Potassium 3.6 Chloride 89 L Carbon Dioxide 25 Anion Gap 6 L BUN 18 Creatinine 0.7 Creat Clearance w eGFR > 60 POC Glucometer 130 Random Glucose 103 D Hemoglobin A1c % 7.2 H D Serum Osmolality Calcium 8.1 L Phosphorus 3.4 Magnesium 1.6 L Total Bilirubin 0.5 AST 20 D ALT 13 Alkaline Phosphatase 74 D Total Protein 5.5 L D Albumin 3.1 L D TSH 2.85 Urine Osmolality Ur Random Sodium Ur Random Potassium Ur Random Chloride 02/07/17 02/07/17 02/07/17 16:41 18:05 20:50 Sodium Potassium Chloride Carbon Dioxide Anion Gap BUN Creatinine Creat Clearance w eGFR POC Glucometer 154 Random Glucose Hemoglobin A1c % Serum Osmolality 269 L Calcium Phosphorus Magnesium Total Bilirubin AST ALT Alkaline Phosphatase Total Protein Albumin TSH Urine Osmolality Cancelled Ur Random Sodium 41 Ur Random Potassium 23.1 Ur Random Chloride 43 02/07/17 02/07/17 02/07/17 20:50 21:47 Unknown Sodium Potassium Chloride Carbon Dioxide Anion Gap BUN Creatinine Creat Clearance w eGFR POC Glucometer 217 Random Glucose Hemoglobin A1c % Serum Osmolality Calcium Phosphorus Magnesium Total Bilirubin AST ALT Alkaline Phosphatase Total Protein Albumin TSH Cancelled Urine Osmolality 268 L Ur Random Sodium Ur Random Potassium Ur Random Chloride 02/08/17 06:38 Sodium Potassium Chloride Carbon Dioxide Anion Gap BUN Creatinine Creat Clearance w eGFR POC Glucometer 124 Random Glucose Hemoglobin A1c % Serum Osmolality Calcium Phosphorus Magnesium Total Bilirubin AST ALT Alkaline Phosphatase Total Protein Albumin TSH Urine Osmolality Ur Random Sodium Ur Random Potassium Ur Random Chloride Active Medications Generic Name Dose Route Start Last Admin Trade Name Freq PRN Reason Stop Dose Admin Acetaminophen 650 mg 02/06/17 14:20 02/06/17 22:10 Tylenol - PO 650 mg Q4H PRN Administration PAIN OR FEVER Aspirin 81 mg 02/07/17 10:00 02/07/17 09:29 Ecotrin - PO 81 mg DAILY [facility] Administration Atorvastatin Calcium 10 mg 02/06/17 22:00 02/07/17 22:06 Lipitor - PO 10 mg HS [facility] Administration Calcium/Vitamin D 1 tab 02/07/17 10:00 02/07/17 09:36 Oscal 250 Mg+D - PO 1 tab DAILY [facility] Administration Diltiazem HCl 120 mg/ 300 mg 02/07/17 10:00 02/07/17 09:28 Diltiazem HCl 180 mg PO 300 mg DAILY [facility] Administration Docusate Sodium 200 mg 02/06/17 22:00 02/07/17 22:05 Colace - PO 200 mg HS [facility] Administration Insulin Aspart 1 vial 02/07/17 07:00 02/08/17 06:41 Novolog Vial Sliding Scale - SQ Not Given ACHS [facility] Protocol Latanoprost 1 drop 02/06/17 22:00 02/07/17 22:04 Xalatan 0.005% Eye Drops - OU 1 drop HS [facility] Administration Levothyroxine Sodium 50 mcg 02/08/17 07:00 02/08/17 06:20 Synthroid - PO 50 mcg TuWeThFrSa@0700 [facility] Administration Levothyroxine Sodium 100 mcg 02/09/17 07:00 Synthroid - PO SuMo@0700 [facility] Losartan Potassium 100 mg 02/07/17 10:00 02/07/17 09:29 Cozaar - PO 100 mg DAILY [facility] Administration Methocarbamol 1,000 mg 02/06/17 22:30 02/08/17 05:30 Robaxin - PO 1,000 mg TID [facility] Administration Nebivolol 40 mg 02/06/17 22:00 02/07/17 22:03 Bystolic - PO 40 mg HS [facility] Administration Ondansetron HCl 4 mg 02/06/17 14:42 Zofran Injection IVPB TID PRN NAUSEA AND/OR VOMITING Oxycodone HCl 5 mg 02/06/17 14:33 Roxicodone - PO Q6H PRN PAIN Polyethylene Glycol 17 gm 02/07/17 10:00 02/07/17 09:29 Miralax (For Daily Use) - PO 17 gm DAILY [facility] Administration Ranitidine HCl 150 mg 02/08/17 10:00 Zantac - PO DAILY [facility] Sodium Chloride 1 gm 02/07/17 18:15 02/07/17 22:06 Sodium Chloride Tablet - PO 1 gm BID [facility] Administration ASSESSMENT/PLAN: 86 year old female with intractable back pain secondary to L1 compression fracture, also with hyponatremia. 1. RENAL: Hyponatremia -Serum sodium improved to 125 today -Free water restriction 800 mL/day -HCTZ dose recently increased -Holding HCTZ -Follow up echocardiogram 2. HEME: Anemia -Hgb 11.9 on admission--> 9.4 yesterday -->10.7 today -DC Celebrex -Hold Lovenox -Obtain stool for occult blood -Follow CBC closely 3. MS: Intactable back pain -Secondary to L1 compression fracture -For kyphoplasty on Friday at 3pm -Hold ASA and Lovenox -NPO after 7am on Friday, may eat early breakfast -Continue Robaxin and prn oxycodone 4. CARDS: HTN -Continue Losartan and Bystolic -Patient was also on Lisinopril for unclear reasons; this was dc'd on admission -BPs are near goal for age Dyslipidemia -Continue Lipitor 5. ENDO DM -FSACHS -ISS -Diabetic diet Hypothyroidism -TSH within normal limits -Continue Snythroid 6. F/E/N -Diabetic diet -Fluid restriction as above -Hypomagnesemia, repleted 7. Ppx -Ambulation with PT -Lovenox 40mg sq daily, hold Friday morning DISPO: Admit for inpatient services. Visit type - Emergency Visit Emergency Visit: Yes ED Registration Date: 02/06/17 Care time: The patient presented to the Emergency Department on the above date and was hospitalized for further evaluation of their emergent condition. - New Patient This patient is new to me today: Yes Date on this admission: 02/06/17 - Critical Care Critical Care patient: No - Discharge Referral Referred to [facility] No
[2017-02-08 09:42] LABS: BASOPHIL 0.4 % (0-2.0); EOSINOPHIL 0.7 % (0-4.5); MCH 28.8 pg (25.7-33.7); MEAN CELL VOLUME 84.7 fl (80-96); NEUTROPHILS 73.3 % (42.8-82.8); PLATELET COUNT 349 K/MM3 (134-434); RDW 15.5 % (11.6-15.6); WHITE BLOOD COUNT 8.2 K/mm3 (4.0-10.0)
[2017-02-08] MEDS ORDERED: PT OWN MED DRAWER 7, Y5N ONE ×3 (09:49→20:41)
[2017-02-08] MEDS: SODIUM CHLORIDE 1 GM TABLET PO SCH ×3 (09:58→21:18)
[2017-02-08] MEDS: ASPIRIN COATED 81 MG TABLET.EC PO SCH (09:59)
[2017-02-08] MEDS: POLYETHYLENE GLYCOL 3350 119 GM BTL PO SCH (09:59)
[2017-02-08] MEDS: RANITIDINE HCL 150 MG TABLET (FP) PO SCH (09:59)
[2017-02-08] MEDS: CALCIUM 250MG/VIT-D 125 UNITS 1 COMBO TABLET PO SCH (09:59)
[2017-02-08] MEDS: DILTIAZEM CD 120 MG, DILTIAZEM CD 180 MG PO SCH (09:59)
[2017-02-08] MEDS: LOSARTAN POTASSIUM 50 MG TABLET (FP) PO SCH (09:59)
[2017-02-08 10:05] LABS: CALCIUM 8.1 mg/dl (8.4-10.2); CREATININE 0.6 mg/dl (0.6-1.3); PHOSPHOROUS 2.1 mg/dl (2.5-4.6)
[2017-02-08] MEDS ORDERED: INSULIN (NOVOLOG) ASPART 100 UNITS/ML 10ML VIAL ONE (16:49)
[2017-02-08] MEDS: ACETAMINOPHEN 325 MG TABLET (FP) PO PRN (16:52)
[2017-02-08] MEDS: DOCUSATE SODIUM 100 MG CAPSULE (FP) PO SCH (21:17)
[2017-02-08] MEDS: NEBIVOLOL 10 MG TABLET (FP) PO SCH (21:18)
[2017-02-08] MEDS: LATANOPROST 0.005% OPHTH SOLN 2.5ML BOTTLE OU SCH (21:19)
[2017-02-08] MEDS: ATORVASTATIN CA 10 MG TABLET (FP) PO SCH (21:19)
[2017-02-09] MEDS: LEVOTHYROXINE NA 100 MCG TABLET (FP) PO SCH (06:33)
[2017-02-09] MEDS: METHOCARBAMOL 500 MG TABLET PO SCH ×3 (06:33→22:20)
[2017-02-09 08:09] LABS: BASOPHIL 0.4 % (0-2.0); EOSINOPHIL 1.9 % (0-4.5); MCH 28.9 pg (25.7-33.7); MCHC 33.7 g/dl (32.0-36.0); MEAN CELL VOLUME 85.7 fl (80-96); MEAN PLT VOLUME 6.9 fl (7.5-11.1); NEUTROPHILS 69.7 % (42.8-82.8); PLATELET COUNT 365 K/MM3 (134-434); RDW 15.4 % (11.6-15.6); WHITE BLOOD COUNT 10.1 K/mm3 (4.0-10.0)
[2017-02-09 08:18] LABS: CALCIUM 8.6 mg/dl (8.4-10.2); CREATININE 0.7 mg/dl (0.6-1.3)
--- NOTE | 2017-02-09 09:16 | PN ---
[id number] Vital Signs Period Temp Pulse Resp BP Sys/Palomo Pulse Ox Last 24 Hr 98.0 F-98.6 F 66-72 18-19 129-181/46-68 98-99 GENERAL: The patient is awake, alert, and fully oriented, in no acute distress. HEAD: Normal with no signs of trauma. EYES: PERRL, extraocular movements intact, sclera anicteric, conjunctiva clear. No ptosis. ENT: Ears normal, nares patent, oropharynx clear without exudates, moist mucous membranes. NECK: Trachea midline, full range of motion, supple. LUNGS: Breath sounds equal, clear to auscultation bilaterally, no wheezes, no crackles, no accessory muscle use. HEART: Regular rate and rhythm, S1, S2 without murmur, rub or gallop. ABDOMEN: Soft, nontender, nondistended, normoactive bowel sounds, no guarding, no rebound, no hepatosplenomegaly, no masses. EXTREMITIES: 2+ pulses, warm, well-perfused, no edema. NEUROLOGICAL: Cranial nerves II through XII grossly intact. Normal speech, gait not observed. Diffuse lumbar paraspinal tenderness. PSYCH: Normal mood, normal affect. SKIN: Warm, dry, normal turgor, no rashes or lesions noted Laboratory Results - last 24 hr 02/08/17 02/08/17 02/08/17 09:35 09:35 11:27 WBC 8.2 RBC 3.70 Hgb 10.7 D Hct 31.3 L MCV 84.7 MCHC 34.0 RDW 15.5 Plt Count 349 MPV 6.0 L D Neutrophils % 73.3 Lymphocytes % 15.7 Monocytes % 9.9 Eosinophils % 0.7 Basophils % 0.4 Sodium 125 L Potassium 4.0 Chloride 96 L Carbon Dioxide 24 Anion Gap 5 L BUN 14 D Creatinine 0.6 POC Glucometer 145 Random Glucose 142 H D Calcium 8.1 L Phosphorus 2.1 L D Magnesium 2.0 D 02/08/17 02/08/17 02/09/17 16:42 20:48 06:00 WBC 10.1 H RBC 3.60 Hgb 10.4 L Hct 30.8 L MCV 85.7 MCHC 33.7 RDW 15.4 Plt Count 365 MPV 6.9 L D Neutrophils % 69.7 Lymphocytes % 19.1 D Monocytes % 8.9 Eosinophils % 1.9 D Basophils % 0.4 Sodium Potassium Chloride Carbon Dioxide Anion Gap BUN Creatinine POC Glucometer 172 114 Random Glucose Calcium Phosphorus Magnesium 02/09/17 02/09/17 06:00 06:44 WBC RBC Hgb Hct MCV MCHC RDW Plt Count MPV Neutrophils % Lymphocytes % Monocytes % Eosinophils % Basophils % Sodium 129 L Potassium 4.5 Chloride 96 L Carbon Dioxide 25 Anion Gap 8 BUN 15 Creatinine 0.7 POC Glucometer 122 Random Glucose 116 H Calcium 8.6 Phosphorus Magnesium Active Medications Generic Name Dose Route Start Last Admin Trade Name Freq PRN Reason Stop Dose Admin Acetaminophen 650 mg 02/06/17 14:20 02/08/17 16:52 Tylenol - PO 650 mg Q4H PRN Administration PAIN OR FEVER Atorvastatin Calcium 10 mg 02/06/17 22:00 02/08/17 21:19 Lipitor - PO 10 mg HS [facility] Administration Calcium/Vitamin D 1 tab 02/07/17 10:00 02/08/17 09:59 Oscal 250 Mg+D - PO 1 tab DAILY [facility] Administration Diltiazem HCl 120 mg/ 300 mg 02/07/17 10:00 02/08/17 09:59 Diltiazem HCl 180 mg PO 300 mg DAILY [facility] Administration Docusate Sodium 200 mg 02/06/17 22:00 02/08/17 21:17 Colace - PO 200 mg HS [facility] Administration Insulin Aspart 1 vial 02/07/17 07:00 02/08/17 21:19 Novolog Vial Sliding Scale - SQ Not Given ACHS [facility] Protocol Latanoprost 1 drop 02/06/17 22:00 02/08/17 21:19 Xalatan 0.005% Eye Drops - OU 1 drop HS [facility] Administration Levothyroxine Sodium 50 mcg 02/08/17 07:00 02/08/17 06:20 Synthroid - PO 50 mcg TuWeThFrSa@0700 [facility] Administration Levothyroxine Sodium 100 mcg 02/09/17 07:00 02/09/17 06:33 Synthroid - PO 100 mcg SuMo@0700 [facility] Administration Losartan Potassium 100 mg 02/07/17 10:00 02/08/17 09:59 Cozaar - PO 100 mg DAILY [facility] Administration Methocarbamol 1,000 mg 02/06/17 22:30 02/09/17 06:33 Robaxin - PO 1,000 mg TID [facility] Administration Nebivolol 40 mg 02/06/17 22:00 02/08/17 21:18 Bystolic - PO 40 mg HS [facility] Administration Ondansetron HCl 4 mg 02/06/17 14:42 Zofran Injection IVPB TID PRN NAUSEA AND/OR VOMITING Oxycodone HCl 5 mg 02/06/17 14:33 02/08/17 16:52 Roxicodone - PO 5 mg Q6H PRN Administration PAIN Polyethylene Glycol 17 gm 02/07/17 10:00 02/08/17 09:59 Miralax (For Daily Use) - PO 17 gm DAILY [facility] Administration Ranitidine HCl 150 mg 02/08/17 10:00 02/08/17 09:59 Zantac - PO 150 mg DAILY [facility] Administration Sodium Chloride 1 gm 02/07/17 18:15 02/08/17 21:18 Sodium Chloride Tablet - PO 1 gm BID [facility] Administration ASSESSMENT/PLAN: 86 year old female with intractable back pain secondary to L1 compression fracture, also with hyponatremia. 1. RENAL: Hyponatremia -Serum sodium improved to 129 today -Free water restriction 800 mL/day; can dc restriction when Na>130 -Dc salt tabs -Holding HCTZ -Follow up echocardiogram 2. HEME: Anemia -Hgb 11.9 on admission--> lowest 9.4-->10.4 today -DC Celebrex -Hold Lovenox -Obtain stool for occult blood -Follow CBC closely 3. MS: Intactable back pain -Secondary to L1 compression fracture -For kyphoplasty on Friday at 3pm -Hold ASA and Lovenox -NPO after 7am on Friday, may eat early breakfast -Continue Robaxin and prn oxycodone 4. CARDS: HTN -Continue Losartan and Bystolic -Patient was also on Lisinopril for unclear reasons; this was dc'd on admission -BPs elevated today- re-eval after NaCl tabs dc Dyslipidemia -Continue Lipitor 5. ENDO DM -FSACHS -ISS -Diabetic diet Hypothyroidism -TSH within normal limits -Continue Snythroid 6. F/E/N -Diabetic diet -Fluid restriction as above -Hypomagnesemia, repleted 7. Ppx -Ambulation with PT -Lovenox 40mg sq daily, hold Friday morning DISPO: Continues to require inpatient services. Visit type - Emergency Visit Emergency Visit: Yes ED Registration Date: 02/06/17 Care time: The patient presented to the Emergency Department on the above date and was hospitalized for further evaluation of their emergent condition. - New Patient This patient is new to me today: No - Critical Care Critical Care patient: No - Discharge Referral Referred to [facility] No
--- NOTE | 2017-02-09 09:40 | PN ---
Progress Note, Physician Chief Complaint: Pt primarily c/o back pain No N/V or diarrhea BP now rising on the salt tabs and off HCTZ Rpt BP taken by me 167/77 - Current Medication List Current Medications: Active Medications Acetaminophen (Tylenol -) 650 mg PO Q4H PRN PRN Reason: PAIN OR FEVER Last Admin: 02/08/17 16:52 Dose: 650 mg Atorvastatin Calcium (Lipitor -) 10 mg PO [facility] Last Admin: 02/08/17 21:19 Dose: 10 mg Calcium/Vitamin D (Oscal 250 Mg+D -) 1 tab PO DAILY [facility] Last Admin: 02/08/17 09:59 Dose: 1 tab Diltiazem HCl 120 mg/ (Diltiazem HCl 180 mg) 300 mg PO DAILY [facility] Last Admin: 02/08/17 09:59 Dose: 300 mg Docusate Sodium (Colace -) 200 mg PO [facility] Last Admin: 02/08/17 21:17 Dose: 200 mg Insulin Aspart (Novolog Vial Sliding Scale -) 1 vial SQ ACHS [facility] PRN Reason: Protocol Last Admin: 02/08/17 21:19 Dose: Not Given Latanoprost (Xalatan 0.005% Eye Drops -) 1 drop OU [facility] Last Admin: 02/08/17 21:19 Dose: 1 drop Levothyroxine Sodium (Synthroid -) 50 mcg PO TuWeThFrSa@0700 [facility] Last Admin: 02/08/17 06:20 Dose: 50 mcg Levothyroxine Sodium (Synthroid -) 100 mcg PO SuMo@0700 [facility] Last Admin: 02/09/17 06:33 Dose: 100 mcg Losartan Potassium (Cozaar -) 100 mg PO DAILY [facility] Last Admin: 02/08/17 09:59 Dose: 100 mg Methocarbamol (Robaxin -) 1,000 mg PO TID [facility] Last Admin: 02/09/17 06:33 Dose: 1,000 mg Nebivolol (Bystolic -) 40 mg PO [facility] Last Admin: 02/08/17 21:18 Dose: 40 mg Ondansetron HCl (Zofran Injection) 4 mg IVPB TID PRN PRN Reason: NAUSEA AND/OR VOMITING Oxycodone HCl (Roxicodone -) 5 mg PO Q6H PRN PRN Reason: PAIN Last Admin: 02/08/17 16:52 Dose: 5 mg Polyethylene Glycol (Miralax (For Daily Use) -) 17 gm PO DAILY [facility] Last Admin: 02/08/17 09:59 Dose: 17 gm Ranitidine HCl (Zantac -) 150 mg PO DAILY [facility] Last Admin: 02/08/17 09:59 Dose: 150 mg Sodium Chloride (Sodium Chloride Tablet -) 1 gm PO BID [facility] Last Admin: 02/08/17 21:18 Dose: 1 gm - Objective Vital Signs: Vital Signs Temperature 98.6 F 02/09/17 06:00 Pulse Rate 66 02/09/17 06:00 Respiratory Rate 19 02/09/17 08:58 Blood Pressure 181/62 02/09/17 06:00 O2 Sat by Pulse Oximetry (%) 98 02/09/17 08:58 Constitutional: Yes: No Distress Cardiovascular: Yes: S1, S2. No: JVD, Gallop Respiratory: Yes: CTA Bilaterally Gastrointestinal: Yes: Soft. No: Tenderness, Rebound Edema: No Labs: CBC, BMP 02/09/17 06:00 02/09/17 06:00 Laboratory Tests 02/08/17 09:35 Cortisol AM Sample Pending Laboratory Tests 02/07/17 07:34 TSH 2.85 Assessment/Plan Impression 1. Hyponatremia better 2. HTN 3. hypothyroidism 4. osteoarthritis 5. chronic back pain scheduled for kyphoplasty tomorrow 6. hyperlipidemia 7. Anemia stabilized Plan D/C Salt tablets Once serum sodium improves to above 130 to begin to unrestrict PO fluids Rpt urine for Spot Na and Cr today to see if the urine spot Na has remained high off HCTZ- If still above 20 may need an SIADH w/u May need to add another antihypertensive agent such as hydralazine- Hold on re introducing a diuretic at this time Rpt labs in am Kyphoplasty scheduled for 02/10 Anemia w/u and R/O GI blood loss Discussed with Hospitalist Dr Landeros
[2017-02-09] MEDS: DILTIAZEM CD 120 MG, DILTIAZEM CD 180 MG PO SCH (10:06)
[2017-02-09] MEDS: CALCIUM 250MG/VIT-D 125 UNITS 1 COMBO TABLET PO SCH (10:07)
[2017-02-09] MEDS: POLYETHYLENE GLYCOL 3350 119 GM BTL PO SCH (10:07)
[2017-02-09] MEDS: RANITIDINE HCL 150 MG TABLET (FP) PO SCH (10:07)
[2017-02-09] MEDS: LOSARTAN POTASSIUM 50 MG TABLET (FP) PO SCH (10:07)
[2017-02-09] MEDS: INSULIN SLIDING SCALE (NOVOLOG) 1 VIAL SQ SCH ×3 (11:00→22:21)
[2017-02-09] MEDS ORDERED: INSULIN (NOVOLOG) ASPART 100 UNITS/ML 10ML VIAL ONE (22:16)
[2017-02-09] MEDS ORDERED: PT OWN MED DRAWER 7, Y5N ONE (22:17)
[2017-02-09] MEDS: DOCUSATE SODIUM 100 MG CAPSULE (FP) PO SCH (22:20)
[2017-02-09] MEDS: ATORVASTATIN CA 10 MG TABLET (FP) PO SCH (22:20)
[2017-02-09] MEDS: NEBIVOLOL 10 MG TABLET (FP) PO SCH (22:20)
[2017-02-09] MEDS: LATANOPROST 0.005% OPHTH SOLN 2.5ML BOTTLE OU SCH (22:21)
[2017-02-10] MEDS: METHOCARBAMOL 500 MG TABLET PO SCH ×3 (06:26→21:24)
[2017-02-10] MEDS: LEVOTHYROXINE NA 100 MCG TABLET (FP) PO SCH (06:26)
[2017-02-10] MEDS: INSULIN SLIDING SCALE (NOVOLOG) 1 VIAL SQ SCH ×4 (06:45→21:24)
[2017-02-10] MEDS ORDERED: PT OWN MED DRAWER 7, Y5N ONE ×2 (07:37→21:08)
[2017-02-10 08:26] LABS: PROTHROMBIN TIME (PATIENT) 11.2 SEC (10.2-13.0)
[2017-02-10 08:27] LABS: EOSINOPHIL 2.5 % (0-4.5); MCH 27.8 pg (25.7-33.7); MCHC 32.3 g/dl (32.0-36.0); MEAN CELL VOLUME 85.9 fl (80-96); MEAN PLT VOLUME 6.7 fl (7.5-11.1); NEUTROPHILS 66.9 % (42.8-82.8); PLATELET COUNT 366 K/MM3 (134-434); RDW 15.7 % (11.6-15.6); WHITE BLOOD COUNT 8.1 K/mm3 (4.0-10.0)
[2017-02-10] MEDS: CALCIUM 250MG/VIT-D 125 UNITS 1 COMBO TABLET PO SCH (09:00)
[2017-02-10] MEDS: LOSARTAN POTASSIUM 50 MG TABLET (FP) PO SCH (09:00)
--- NOTE | 2017-02-10 09:22 | PN ---
Physical Exam: SUBJECTIVE: Patient seen and examined, reports feeling better, reports back pain upon movement, patient denies any chest pain or shortness of breath. OBJECTIVE: patient is a 86 year old female with a past medical history of BrCA, HTN, HLD, DM, hypothyroidism. patient was admitted from the hospital for intractable back pain and hyponatremia. Vital Signs Period Temp Pulse Resp BP Sys/Palomo Pulse Ox Last 24 Hr 98.4 F-98.9 F 64-70 16-20 153-179/59-68 94-98 GENERAL: The patient is awake, alert, and fully oriented, in no acute distress. HEAD: Normal with no signs of trauma. EYES: PERRL, extraocular movements intact, sclera anicteric, conjunctiva clear. No ptosis. ENT: Ears normal, nares patent, oropharynx clear without exudates, moist mucous membranes. NECK: Trachea midline, full range of motion, supple. LUNGS: Breath sounds equal, clear to auscultation bilaterally, no wheezes, no crackles, no accessory muscle use. HEART: Regular rate and rhythm, S1, S2 without murmur, rub or gallop. ABDOMEN: Soft, nontender, nondistended, normoactive bowel sounds, no guarding, no rebound, no hepatosplenomegaly, no masses. MS: paraspinal tenderness to L3 & L4 EXTREMITIES: 2+ pulses, warm, well-perfused, no edema. NEUROLOGICAL: Cranial nerves II through XII grossly intact. Normal speech, gait not observed. PSYCH: Normal mood, normal affect. SKIN: Warm, dry, normal turgor, no rashes or lesions noted Laboratory Results - last 24 hr 02/09/17 02/09/17 02/09/17 12:02 16:39 20:35 WBC RBC Hgb Hct MCV MCHC RDW Plt Count MPV Neutrophils % Lymphocytes % Monocytes % Eosinophils % Basophils % INR POC Glucometer 128 160 Urine Creatinine 84.8 02/09/17 02/10/17 02/10/17 21:39 06:43 07:40 WBC 8.1 RBC 3.68 Hgb 10.2 L Hct 31.6 L MCV 85.9 MCHC 32.3 RDW 15.7 H Plt Count 366 MPV 6.7 L Neutrophils % 66.9 Lymphocytes % 21.2 Monocytes % 8.4 Eosinophils % 2.5 Basophils % 1.0 INR POC Glucometer 153 115 Urine Creatinine 02/10/17 07:40 WBC RBC Hgb Hct MCV MCHC RDW Plt Count MPV Neutrophils % Lymphocytes % Monocytes % Eosinophils % Basophils % INR 1.00 POC Glucometer Urine Creatinine CMP Sodium 129 mmol/L (136-145) L 02/10/17 07:40 Potassium 4.5 mmol/L (3.5-5.1) 02/10/17 07:40 Chloride 98 mmol/L (98-107) 02/10/17 07:40 Carbon Dioxide 27 mmol/L (22-28) 02/10/17 07:40 Anion Gap 4 (8-16) L 02/10/17 07:40 BUN 13 mg/dl (7-18) 02/10/17 07:40 Creatinine 0.7 mg/dl (0.6-1.3) 02/10/17 07:40 Creat Clearance w eGFR > 60 (>60) 02/07/17 07:34 POC Glucometer 115 UNITS (()) 02/10/17 06:43 Random Glucose 162 mg/dl (74-106) H D 02/10/17 07:40 Hemoglobin A1c % 7.2 % (4.8-6.0) H D 02/07/17 07:34 Serum Osmolality 269 mosm/kg (278-305) L 02/07/17 18:05 Calcium 8.4 mg/dl (8.4-10.2) 02/10/17 07:40 Phosphorus 2.1 mg/dl (2.5-4.6) L D 02/08/17 09:35 Magnesium 2.0 mg/dL (1.8-2.4) D 02/08/17 09:35 Total Bilirubin 0.5 mg/dl (0.2-1.0) 02/07/17 07:34 AST 20 U/L (10-42) D 02/07/17 07:34 ALT 13 U/L (10-40) 02/07/17 07:34 Alkaline Phosphatase 74 U/L (32-92) D 02/07/17 07:34 Creatine Kinase 47 IU/L (26-140) 02/06/17 10:34 Troponin I < 0.03 ng/ml (0.03-0.50) L 02/06/17 10:34 Total Protein 5.5 g/dl (6.4-8.3) L D 02/07/17 07:34 Albumin 3.1 g/dl (3.5-5.0) L D 02/07/17 07:34 TSH Cancelled 02/07/17 Unknown Active Medications Generic Name Dose Route Start Last Admin Trade Name Freq PRN Reason Stop Dose Admin Acetaminophen 650 mg 02/06/17 14:20 02/08/17 16:52 Tylenol - PO 650 mg Q4H PRN Administration PAIN OR FEVER Atorvastatin Calcium 10 mg 02/06/17 22:00 02/09/17 22:20 Lipitor - PO 10 mg HS [facility] Administration Calcium/Vitamin D 1 tab 02/07/17 10:00 02/09/17 10:07 Oscal 250 Mg+D - PO 1 tab DAILY [facility] Administration Diltiazem HCl 120 mg/ 300 mg 02/07/17 10:00 02/09/17 10:06 Diltiazem HCl 180 mg PO 300 mg DAILY [facility] Administration Docusate Sodium 200 mg 02/06/17 22:00 02/09/17 22:20 Colace - PO 200 mg HS [facility] Administration Insulin Aspart 1 vial 02/07/17 07:00 02/10/17 06:45 Novolog Vial Sliding Scale - SQ Not Given ACHS [facility] Protocol Latanoprost 1 drop 02/06/17 22:00 02/09/17 22:21 Xalatan 0.005% Eye Drops - OU 1 drop HS [facility] Administration Levothyroxine Sodium 50 mcg 02/08/17 07:00 02/08/17 06:20 Synthroid - PO 50 mcg TuWeThFrSa@0700 [facility] Administration Levothyroxine Sodium 100 mcg 02/09/17 07:00 02/10/17 06:26 Synthroid - PO 100 mcg SuMo@0700 [facility] Administration Losartan Potassium 100 mg 02/07/17 10:00 02/09/17 10:07 Cozaar - PO 100 mg DAILY [facility] Administration Methocarbamol 1,000 mg 02/06/17 22:30 02/10/17 06:26 Robaxin - PO 1,000 mg TID [facility] Administration Nebivolol 40 mg 02/06/17 22:00 02/09/17 22:20 Bystolic - PO 40 mg HS [facility] Administration Ondansetron HCl 4 mg 02/06/17 14:42 Zofran Injection IVPB TID PRN NAUSEA AND/OR VOMITING Oxycodone HCl 5 mg 02/06/17 14:33 02/08/17 16:52 Roxicodone - PO 5 mg Q6H PRN Administration PAIN Polyethylene Glycol 17 gm 02/07/17 10:00 02/09/17 10:07 Miralax (For Daily Use) - PO 17 gm DAILY [facility] Administration Ranitidine HCl 150 mg 02/08/17 10:00 02/09/17 10:07 Zantac - PO 150 mg DAILY [facility] Administration imaging Chest x-ray: Mild increase density to the left lung base, may be related to soft tissue overlying, no infiltrates noted effusions noted MRI/lumbar spine: cute compression fracture of L1 with residual bone marrow edema, L2/L3 midline herniation, grade 1anterolisthesis of L4 over L5, grade 2 spondylolisthesis listhesis of L5 over S1 ASSESSMENT/PLAN: 1. RENAL: Hyponatremia -corrected sodium is 130, continue free water restriction -Holding HCTZ -Follow up echocardiogram 2. HEME: Anemia -Hgb 11.9 on admission--> now 10.2 stable, repeat cbc in AM -Hold Lovenox -Obtain stool for occult blood 3. MS: Intactable back pain -Secondary to L1 compression fracture - pending kyphoplaaty was rescheduled for tomm in the AM b/c the unavailability of OR time - continue to Hold ASA and Lovenox -NPO after 7am on Friday, may eat early breakfast -Continue Robaxin and prn oxycodone 4. CARDS: HTN -Continue Losartan, cardizem and Bystolic - b/p remains elevated start hydralazine Dyslipidemia -Continue Lipitor 5. ENDO DM -FSACHS -ISS -Diabetic diet Hypothyroidism -TSH within normal limits -Continue Snythroid 6. F/E/N -Diabetic diet -Fluid restriction as above 7. Ppx -Ambulation with PT -Lovenox 40mg sq daily, holding for Friday morning OR DISPO: Continues to require inpatient services. Visit type - Emergency Visit Emergency Visit: Yes ED Registration Date: 02/06/17 Care time: The patient presented to the Emergency Department on the above date and was hospitalized for further evaluation of their emergent condition. - New Patient This patient is new to me today: No - Critical Care Critical Care patient: No - Discharge Referral [facility] No
--- NOTE | 2017-02-10 09:25 | PN ---
Progress Note, Physician History of Present Illness: Pt seen and examined at bedside. She still has joint and back pains. She denies shortness of breath. She denies dysuria. - Current Medication List Current Medications: Active Medications Acetaminophen (Tylenol -) 650 mg PO Q4H PRN PRN Reason: PAIN OR FEVER Last Admin: 02/08/17 16:52 Dose: 650 mg Atorvastatin Calcium (Lipitor -) 10 mg PO [facility] Last Admin: 02/09/17 22:20 Dose: 10 mg Calcium/Vitamin D (Oscal 250 Mg+D -) 1 tab PO DAILY [facility] Last Admin: 02/09/17 10:07 Dose: 1 tab Diltiazem HCl 120 mg/ (Diltiazem HCl 180 mg) 300 mg PO DAILY [facility] Last Admin: 02/09/17 10:06 Dose: 300 mg Docusate Sodium (Colace -) 200 mg PO [facility] Last Admin: 02/09/17 22:20 Dose: 200 mg Insulin Aspart (Novolog Vial Sliding Scale -) 1 vial SQ ACHS [facility] PRN Reason: Protocol Last Admin: 02/10/17 06:45 Dose: Not Given Latanoprost (Xalatan 0.005% Eye Drops -) 1 drop OU [facility] Last Admin: 02/09/17 22:21 Dose: 1 drop Levothyroxine Sodium (Synthroid -) 50 mcg PO TuWeThFrSa@0700 [facility] Last Admin: 02/08/17 06:20 Dose: 50 mcg Levothyroxine Sodium (Synthroid -) 100 mcg PO SuMo@0700 [facility] Last Admin: 02/10/17 06:26 Dose: 100 mcg Losartan Potassium (Cozaar -) 100 mg PO DAILY [facility] Last Admin: 02/09/17 10:07 Dose: 100 mg Methocarbamol (Robaxin -) 1,000 mg PO TID [facility] Last Admin: 02/10/17 06:26 Dose: 1,000 mg Nebivolol (Bystolic -) 40 mg PO [facility] Last Admin: 02/09/17 22:20 Dose: 40 mg Ondansetron HCl (Zofran Injection) 4 mg IVPB TID PRN PRN Reason: NAUSEA AND/OR VOMITING Oxycodone HCl (Roxicodone -) 5 mg PO Q6H PRN PRN Reason: PAIN Last Admin: 02/08/17 16:52 Dose: 5 mg Polyethylene Glycol (Miralax (For Daily Use) -) 17 gm PO DAILY [facility] Last Admin: 02/09/17 10:07 Dose: 17 gm Ranitidine HCl (Zantac -) 150 mg PO DAILY [facility] Last Admin: 02/09/17 10:07 Dose: 150 mg - Objective Vital Signs: Vital Signs Temperature 98.4 F 02/10/17 06:00 Pulse Rate 66 02/10/17 06:00 Respiratory Rate 20 02/10/17 07:50 Blood Pressure 179/59 02/10/17 06:00 O2 Sat by Pulse Oximetry (%) 94 L 02/10/17 07:50 Constitutional: Yes: Calm Eyes: Yes: Conjunctiva Clear HENT: Yes: Atraumatic Cardiovascular: Yes: S1, S2 Respiratory: Yes: CTA Bilaterally Gastrointestinal: Yes: Soft Genitourinary: Yes: WNL Musculoskeletal: Yes: WNL Edema: No Neurological: Yes: Oriented Psychiatric: Yes: Oriented Labs: CBC, BMP 02/10/17 07:40 INR, PTT INR 1.00 (0.82-1.09) 02/10/17 07:40 Problem List - Problems (1) Back pain with sciatica Code(s): M54.30 - SCIATICA, UNSPECIFIED SIDE M54.9 - DORSALGIA, UNSPECIFIED (2) Hyponatremia Code(s): E87.1 - HYPO-OSMOLALITY AND HYPONATREMIA (3) Back pain Code(s): M54.9 - DORSALGIA, UNSPECIFIED Qualifiers: Back pain location: low back pain Chronicity: acute Back pain laterality: right Sciatica presence: with sciatica Sciatica laterality: sciatica of right side Qualified Code(s): M54.41 - Lumbago with sciatica , right side (4) Hypertension Code(s): I10 - ESSENTIAL (PRIMARY) HYPERTENSION Assessment/Plan Current Medications Generic Name Dose Route Start Last Admin Trade Name Freq PRN Reason Stop Dose Admin Acetaminophen 650 mg 02/06/17 14:20 02/08/17 16:52 Tylenol - PO 650 mg Q4H PRN Administration PAIN OR FEVER Atorvastatin Calcium 10 mg 02/06/17 22:00 02/09/17 22:20 Lipitor - PO 10 mg HS [facility] Administration Calcium/Vitamin D 1 tab 02/07/17 10:00 02/09/17 10:07 Oscal 250 Mg+D - PO 1 tab DAILY [facility] Administration Diltiazem HCl 120 mg/ 300 mg 02/07/17 10:00 02/09/17 10:06 Diltiazem HCl 180 mg PO 300 mg DAILY [facility] Administration Docusate Sodium 200 mg 02/06/17 22:00 02/09/17 22:20 Colace - PO 200 mg HS [facility] Administration Insulin Aspart 1 vial 02/07/17 07:00 02/10/17 06:45 Novolog Vial Sliding Scale - SQ Not Given ACHS [facility] Protocol Latanoprost 1 drop 02/06/17 22:00 02/09/17 22:21 Xalatan 0.005% Eye Drops - OU 1 drop HS [facility] Administration Levothyroxine Sodium 50 mcg 02/08/17 07:00 02/08/17 06:20 Synthroid - PO 50 mcg TuWeThFrSa@0700 [facility] Administration Levothyroxine Sodium 100 mcg 02/09/17 07:00 02/10/17 06:26 Synthroid - PO 100 mcg SuMo@0700 [facility] Administration Losartan Potassium 100 mg 02/07/17 10:00 02/09/17 10:07 Cozaar - PO 100 mg DAILY [facility] Administration Methocarbamol 1,000 mg 02/06/17 22:30 02/10/17 06:26 Robaxin - PO 1,000 mg TID [facility] Administration Nebivolol 40 mg 02/06/17 22:00 02/09/17 22:20 Bystolic - PO 40 mg HS [facility] Administration Ondansetron HCl 4 mg 02/06/17 14:42 Zofran Injection IVPB TID PRN NAUSEA AND/OR VOMITING Oxycodone HCl 5 mg 02/06/17 14:33 02/08/17 16:52 Roxicodone - PO 5 mg Q6H PRN Administration PAIN Polyethylene Glycol 17 gm 02/07/17 10:00 02/09/17 10:07 Miralax (For Daily Use) - PO 17 gm DAILY [facility] Administration Ranitidine HCl 150 mg 02/08/17 10:00 02/09/17 10:07 Zantac - PO 150 mg DAILY [facility] Administration Laboratory Tests 02/07/17 02/07/17 02/07/17 07:34 18:05 20:50 Serum Osmolality 269 L TSH 2.85 Cortisol AM Sample Urine Osmolality Ur Random Sodium 41 03/31/17 04/01/17 20:50 09:35 Serum Osmolality TSH Cortisol AM Sample Pending Urine Osmolality 268 L Ur Random Sodium Impression 1. Hyponatremia 2. HTN 3. hypothyroidism 4. osteoarthritis 5. chronic back pain 6. hyperlipidemia Plan - sodium has been improving, follow up bmp from today - salt tabs stopped - can add ahydralazine for BP - do not restart lisinopril - cont fluid restriction for now until labs are reviewed - can used loop diuretics if she developed edema, should monitor potassium if it is started in the future - avoid nsaids - will follow Dr Smyth
[2017-02-10 09:50] LABS: CALCIUM 8.4 mg/dl (8.4-10.2); CREATININE 0.7 mg/dl (0.6-1.3)
[2017-02-10] MEDS: DILTIAZEM CD 120 MG, DILTIAZEM CD 180 MG PO SCH (09:58)
[2017-02-10] MEDS: POLYETHYLENE GLYCOL 3350 119 GM BTL PO SCH (09:59)
[2017-02-10] MEDS: RANITIDINE HCL 150 MG TABLET (FP) PO SCH (09:59)
[2017-02-10] MEDS: hydrALAZINE HCL 10 MG TABLET PO SCH ×2 (10:58→21:24)
[2017-02-10] MEDS: DOCUSATE SODIUM 100 MG CAPSULE (FP) PO SCH ×2 (14:00→21:24)
[2017-02-10] MEDS: NEBIVOLOL 10 MG TABLET (FP) PO SCH (21:23)
[2017-02-10] MEDS: ATORVASTATIN CA 10 MG TABLET (FP) PO SCH (21:24)
[2017-02-10] MEDS: LATANOPROST 0.005% OPHTH SOLN 2.5ML BOTTLE OU SCH (21:24)
[2017-02-11] MEDS ORDERED: hydrALAZINE HCL 20 MG/ML VIAL IVPUSH ONE (06:28)
--- NOTE | 2017-02-11 06:33 | HOSP ---
Subjective - Review of Symptoms Events since last encounter: Hospitalist Encounter Notified via telephone that the patient has a BP 211/76, scheduled for Kyphoplasty today. Hydralazine IV ordered Monitor BP Physical Examination Vital Signs: Vital Signs Temperature 98.6 F 02/10/17 22:32 Pulse Rate 73 02/10/17 22:32 Respiratory Rate 19 02/10/17 22:32 Blood Pressure 173/64 02/10/17 22:32 O2 Sat by Pulse Oximetry (%) 96 02/10/17 22:32 Labs: CBC, BMP 02/10/17 07:40 02/10/17 07:40
[2017-02-11] MEDS: METHOCARBAMOL 500 MG TABLET PO SCH ×2 (06:47→15:25)
[2017-02-11] MEDS: INSULIN SLIDING SCALE (NOVOLOG) 1 VIAL SQ SCH ×2 (06:48→12:20)
[2017-02-11] MEDS: DOCUSATE SODIUM 100 MG CAPSULE (FP) PO SCH ×2 (06:48→15:25)
[2017-02-11] MEDS ORDERED: BUPIVACAINE HCL/PF 2.5 MG/ML - 30 ML VIAL IJ ONE (07:04)
[2017-02-11] MEDS ORDERED: PROPOFOL 20 ML ONE (07:43)
[2017-02-11] MEDS ORDERED: MIDAZOLAM HCL 2 MG/2 ML SINGLE DOSE VIAL ONE (07:43)
[2017-02-11] MEDS ORDERED: GUM MASTIC/STORAX/MSAL/ALCOHOL 1 DRP DROPSBTL MC ONE (08:28)
[2017-02-11] MEDS ORDERED: ONDANSETRON 4 MG/2 ML VIAL IVPUSH PRN (08:47)
[2017-02-11] MEDS ORDERED: LABETALOL HCL 5 MG/1 ML (100MG/20 ML VIAL) IVPUSH ONE (08:50)
[2017-02-11] MEDS ORDERED: SODIUM CHLORIDE 1,000 ML IV SCH (09:00)
[2017-02-11 10:30] VITALS: TEMP 98.2
[2017-02-11 10:55] LABS: BASOPHIL 0.7 % (0-2.0); EOSINOPHIL 1.4 % (0-4.5); MCH 27.7 pg (25.7-33.7); MCHC 32.8 g/dl (32.0-36.0); MEAN CELL VOLUME 84.5 fl (80-96); MEAN PLT VOLUME 6.4 fl (7.5-11.1); NEUTROPHILS 70.3 % (42.8-82.8); PLATELET COUNT 389 K/MM3 (134-434); RDW 15.9 % (11.6-15.6); WHITE BLOOD COUNT 9.9 K/mm3 (4.0-10.0)
[2017-02-11 11:37] LABS: CALCIUM 8.5 mg/dl (8.4-10.2); CREATININE 0.7 mg/dl (0.6-1.3); PHOSPHOROUS 3.2 mg/dl (2.5-4.6)
[2017-02-11] MEDS: hydrALAZINE HCL 10 MG TABLET PO SCH (12:13)
[2017-02-11] MEDS: LOSARTAN POTASSIUM 50 MG TABLET (FP) PO SCH (12:13)
[2017-02-11] MEDS: LEVOTHYROXINE NA 50 MCG TABLET (FP) PO SCH (12:13)
[2017-02-11] MEDS: DILTIAZEM CD 120 MG, DILTIAZEM CD 180 MG PO SCH (12:13)
[2017-02-11] MEDS: RANITIDINE HCL 150 MG TABLET (FP) PO SCH (12:13)
[2017-02-11] MEDS: ACETAMINOPHEN 325 MG TABLET (FP) PO PRN (12:14)
[2017-02-11] MEDS: POLYETHYLENE GLYCOL 3350 119 GM BTL PO SCH (12:19)
[2017-02-11] MEDS: CALCIUM 250MG/VIT-D 125 UNITS 1 COMBO TABLET PO SCH (12:19)
[2017-02-11 12:21] VITALS: PULSE 85
--- NOTE | 2017-02-11 12:43 | DS ---
Physical Exam: SUBJECTIVE: Patient seen and examined, patient reports lower back pain upon movement, denies any headache chest pain or shortness of breath OBJECTIVE:This is a 86 year old female with a past medical history of BrCA, HTN , HLD, DM, hypothyroidism who presented to the ED with complaint of back pain radiating down right leg. Pt states she is having difficulty walking due to the pain. Improved with medication in ED. Pt denies chest pain, SOB, abdominal pain , N/V/D. Reports she frequently gets constipation. Pt also reports that she has not been eating or drinking properly due to the pain. ER course was notable for: (1) given dilaudid 0.5mg x 3 doses Vital Signs Period Temp Pulse Resp BP Sys/Palomo Pulse Ox Last 24 Hr 97.6 F-98.6 F 72-85 2-26 127-212/42-93 94-98 PHYSICAL EXAM GENERAL: The patient is awake, alert, and fully oriented, in no acute distress. HEAD: Normal with no signs of trauma. EYES: PERRL, extraocular movements intact, sclera anicteric, conjunctiva clear. ENT: Ears normal, nares patent, oropharynx clear without exudates, moist mucous membranes. NECK: Trachea midline, full range of motion, supple. LUNGS: Breath sounds equal, clear to auscultation bilaterally, no wheezes, no crackles, no accessory muscle use. HEART: Regular rate and rhythm, S1, S2 without murmur, rub or gallop. ABDOMEN: Soft, nontender, nondistended, normoactive bowel sounds, no guarding, no rebound, no hepatosplenomegaly, no masses. EXTREMITIES: 2+ pulses, warm, well-perfused, no edema. NEUROLOGICAL: Cranial nerves II through XII grossly intact. Normal speech, gait not observed. PSYCH: Normal mood, normal affect. SKIN: Warm, dry, normal turgor, no rashes or lesions noted.dressing to lower back clean dry and intact LABS Laboratory Results - last 24 hr 02/10/17 02/10/17 02/11/17 16:49 21:31 06:14 WBC RBC Hgb Hct MCV MCHC RDW Plt Count MPV Neutrophils % Lymphocytes % Monocytes % Eosinophils % Basophils % Sodium Potassium Chloride Carbon Dioxide Anion Gap BUN Creatinine POC Glucometer 148 128 123 Random Glucose Calcium Phosphorus Magnesium 02/11/17 02/11/17 02/11/17 09:38 10:30 10:30 WBC 9.9 RBC 3.88 Hgb 10.8 Hct 32.8 MCV 84.5 MCHC 32.8 RDW 15.9 H Plt Count 389 MPV 6.4 L Neutrophils % 70.3 Lymphocytes % 19.0 Monocytes % 8.6 Eosinophils % 1.4 Basophils % 0.7 Sodium 130 L Potassium 4.0 Chloride 100 Carbon Dioxide 24 Anion Gap 6 L BUN 10 D Creatinine 0.7 POC Glucometer 123 Random Glucose 125 H D Calcium 8.5 Phosphorus 3.2 D Magnesium 2.0 imaging Chest x-ray: Mild increase density to the left lung base, may be related to soft tissue overlying, no infiltrates noted effusions noted MRI/lumbar spine: cute compression fracture of L1 with residual bone marrow edema, L2/L3 midline herniation, grade 1anterolisthesis of L4 over L5, grade 2 spondylolisthesis listhesis of L5 over S1 ECHO: EF 45-50%, borderline LVH HOSPITAL COURSE: Patient was admitted from the emergency department for intractable back pain and hyponatremia. Patient's serum sodium improved to 132 with free water restriction and discontinuing the HCTZ. Nephrology, Dr Anderson was consulted and followed. She was noted to have normocytic anemia, hgb 10.2 (stable). Dr Nath was consulted in regards to the compression fracture of L1. Kyphoplasty (Pham) was completed on 02/11/17. patient has a S medical history of hypertension. Upon arrival from the emergency department he was noted that patient was on losartan and lisinopril. Lisinopril was discontinued patient was started on hydralazine with good result. cardizem and bysystolic was continued throughout hospitalization. patient has a past medical history of NIDDM, she was placed on fingersticks before meals and at bedtime with regular insulin coverage Date of Admission:02/06/17 Date of Discharge: 02/11/17 Minutes to complete discharge: 45 Discharge Summary Reason For Visit: BACK PAIN WITH SCIATICA/HYPONATREMIA Current Active Problems Back pain with sciatica (Acute) Hypertension (Acute) Hyponatremia (Acute) Condition: Improved - Instructions Diet, Activity, Other Instructions: resume regular low-sodium diet your lisinopril and your HCTZ, was discontinued and you were started on hydralazine, please take hydralazine as prescribed please follow-up with Dr. Yamileth jacobsen within 1 week Return to the emergency department immediately with ANY new, persistent or worsening symptoms. You MUST call and follow up with your doctor tomorrow. Please make sure your doctor reviews the results of your hospital stay. Referrals: Alex Nath MD [Staff Physician] - Disposition: [facility] - Home Medications Comprehensive Discharge Medication List: Ambulatory Orders Aspirin [Ecotrin] 81 mg PO DAILY 02/06/17 Calcium 250Mg/Vit-D 125 Units [Oscal 250 mg+D -] 1 combo PO DAILY 02/06/17 Diltiazem Cd [Cardizem Cd -] 300 mg PO DAILY 02/06/17 Docusate Sodium [Colace -] 200 mg PO DAILY 02/06/17 Hydrochlorothiazide [Hctz -] 12.5 mg PO DAILY 02/06/17 Latanoprost 0.005% Eye Drops [Xalatan 0.005% Eye Drops -] 1 drop .ROUTE HS 02/06 Levothyroxine [Synthroid -] 50 mcg PO ASDIR 02/06/17 Levothyroxine [Synthroid -] 100 mcg PO ASDIR 02/06/17 Lisinopril [Prinivil -] 40 mg PO DAILY 02/06/17 Losartan Potassium [Cozaar] 100 mg PO DAILY 02/06/17 Meloxicam [Mobic (Nf) -] 15 mg PO DAILY 02/06/17 Metformin HCl [Glucophage] 1,000 mg PO HS 02/06/17 Nebivolol HCl [Bystolic] 40 mg PO HS 02/06/17 Simvastatin [Zocor] 10 mg PO HS 02/06/17 This patient is new to me today: No Emergency Visit: Yes ED Registration Date: 02/06/17 Care time: The patient presented to the Emergency Department on the above date and was hospitalized for further evaluation of their emergent condition. Critical Care patient: No - Discharge Referral Referred to [facility] No
[2017-02-11 14:02] VITALS: BP 111/53
--- NOTE | 2017-02-12 15:40 | PATH ---
Surgical Pathology Report Patient Name: GERALDO FRENCH Med. Rec. #: [id number] /Age/Gender: 1930 (Age: 86) / F Account: [id number] Location: [facility] Taken: 02/11/2017 Received: 02/11/2017 Reported: 02/12/2017 Physicians: Alex Nath M.D. Specimen(s) Received L1 VERTEBRAL BODY BIOPSY Clinical History Back pain with sciatica Final Diagnosis L1 VERTEBRAL BODY, BIOPSY: BONE WITH NO PATHOLOGIC FINDINGS. TRILINEAGE HEMATOPOIETIC MARROW. Electronically Signed Milana Fortune M.D. Gross Description Received in formalin labeled "L1 vertebral body biopsy," is a 0.4 cm in length x 0.2 cm diameter mckee, cylindrical portion of bone which is submitted in toto in one cassette, following decalcification. /02/11/201702/11/2017
== END 2017-02-11 16:15 | DRG 478 ==
LOC: FER 09:24 → OBSVTOIN 14:00 → FM/S 14:00 → UNDOADMOB 14:44 → FM/S 14:44
PROVIDERS: ADMIT Internal Medicine; ATTEND Nurse Practitioner Family
PROC: 0QB03ZX Excision of Lumbar Vertebra, Percutaneous Approach, Diagnostic (ICD-10-PCS; 2017-02-11)
PROC: 0QU03JZ Supplement Lumbar Vertebra with Synthetic Substitute, Percutaneous Approach (ICD-10-PCS; 2017-02-11)
PROC: 0QS03ZZ Reposition Lumbar Vertebra, Percutaneous Approach (ICD-10-PCS; principal; 2017-02-11 08:21)
DX: M48.56XA Collapsed vertebra, not elsewhere classified, lumbar region, initial encounter for fracture (principal); E87.1 Hypo-osmolality and hyponatremia; E83.42 Hypomagnesemia; M54.30 Sciatica, unspecified side; I10 Essential (primary) hypertension; E78.5 Hyperlipidemia, unspecified; E03.9 Hypothyroidism, unspecified; Z85.3 Personal history of malignant neoplasm of breast; E11.9 Type 2 diabetes mellitus without complications; H40.9 Unspecified glaucoma; R42 Dizziness and giddiness; D64.9 Anemia, unspecified; M19.90 Unspecified osteoarthritis, unspecified site; M43.16 Spondylolisthesis, lumbar region; Z79.84 Long term (current) use of oral hypoglycemic drugs
CPT/HCPCS: 36415; 71020-TC; 72100-TC; 72148-TC; 76001-TC; 80048; 80053; 81003; 81015; 82436; 82533; 82550; 82570; 83036; 83735; 83930; 83935; 84100; 84133; 84300; 84436; 84443; 84484; 85025; 85027; 85610; 86850; 86900; 86901; 88305-TC; 88311-TC; 93005; 93010; 93306-TC; 94760; 97116-GP; 97161-GP; 99283-25

== ENCOUNTER 2017-09-01 13:00 | Observation (INO) | payer BC ==
--- NOTE | 2017-09-01 13:40 | PDOC ---
History of Present Illness - General Chief Complaint: Blood Pressure Problem Stated Complaint: HIGH BLOOD PRESSURE Time Seen by Provider: 09/01/17 13:05 - History of Present Illness Initial Comments: 09/01/17 13:39 Chief complaint: Hypertension back and leg pain History of present illness: This is a 86-year-old woman with past medical history significant for BRCA, hypertension, hyperlipidemia, diabetes, hypothyroidism who presents from her doctor's office for uncontrolled hypertension and uncontrolled back pain. Patient has chronic back pain with sciatica. At the doctor's office received medication for her blood pressure after which time at diner patient was noted to be lethargic called primary care doctor and was sent to the emergency department for evaluation and admission Past History - Travel Traveled outside of the country in the last 30 days: No Close contact w/someone who was outside of country & ill: No - Past Medical History Allergies/Adverse Reactions: Allergies Allergy/AdvReac Type Severity Reaction Status Date / Time No Known Allergies Allergy Verified 09/01/17 14:44 Home Medications: Ambulatory Orders Docusate Sodium [Colace -] 200 mg PO DAILY PRN 02/06/17 Latanoprost 0.005% Eye Drops [Xalatan 0.005% Eye Drops -] 1 drop .ROUTE HS 02/06 Metformin HCl [Glucophage] 1,000 mg PO DAILY 02/06/17 Simvastatin [Zocor -] 10 mg PO HS 02/06/17 Acetaminophen [Tylenol .Regular Strength -] 650 mg PO Q4H PRN #0 tablet Polyethylene Glycol 3350 [Miralax 119 gm Btl -] 17 gm PO DAILY bottle 02/11/17 Furosemide [Lasix] 20 mg PO DAILY 09/01/17 Glucosa Xavier 2Kcl/Chondroitin Xavier [Glucosamine & Chondroitin Cap] 1 each PO BID Hydralazine HCl [Apresoline -] 10 mg PO TID 09/01/17 Levothyroxine [Synthroid -] 100 mcg PO DAILY 09/01/17 Metoprolol Tartrate [Lopressor] 100 mg PO BID 09/01/17 Sacubitril/Valsartan [Entresto 97 mg-103 mg Tablet] 1 tab PO BID 09/01/17 Cancer: Yes (LEFT BREAST LUMPECTOMY) Diabetes: Yes HTN: Yes Thyroid Disease: Yes - Suicide/Smoking/Psychosocial Hx Smoking History: Never smoked Have you smoked in the past 12 months: No Number of Cigarettes Smoked Daily: 0 Cigars Per Day: 0 Hx Alcohol Use: No Drug/Substance Use Hx: No Substance Use Type: None Review of Systems - Review of Systems Able to Perform ROS?: Yes Comments:: 09/01/17 14:44 ROS: A complete review of 10 out of 10 review of systems is taken and is negative apart from what is previously mentioned below and in the HPI. *Physical Exam - Vital Signs Last Vital Signs Temp Pulse Resp BP Pulse Ox 98.1 F 66 16 106/55 98 09/01/17 13:01 09/01/17 13:01 09/01/17 13:01 09/01/17 13:01 09/01/17 13:01 - Physical Exam Comments: 09/01/17 14:45 Vitals: Triage Vital signs reviewed General Appearance: no acute distress, well nourished well developed, Head: Atraumatic, Eyes: Pupils equal reactive round, extraocular movement intact Neck: Supple;No Nucal rigidity Chest Wall: Nontender Cardiac: Regular rate and rhythym, no murmurs, no rubs, no gallops, Lungs: Clear to auscultation bilateral, good air movement bilaterally, Abdomen: Soft, non distended, normal bowel sounds, non tender to palpation Extremities: Full range of motion to all extremities, no cyanosis, clubbing, or edema Skin: Warm and dry, no rashes or lesions, no rash, no petechiae Heart Score/ECG Review - ECG Intrepretation Rhythm: Regular Rhythm - [place]: Normal - P and DE Prolonged DE Interval: 1st Degree Block(>20mils) - ST and T Early Repolarization: No Non Specific ST-T Wave changes: No ED Treatment Course - LABORATORY CBC & Chemistry Diagram: 09/01/17 13:40 09/01/17 13:40 - RADIOLOGY Radiology Studies Ordered: Category Date Time Status CXRPORT [CHEST X-RAY PORTABLE*] [RAD] Stat Radiology 09/01/17 13:29 Ordered Medical Decision Making - Medical Decision Making 09/01/17 14:45 Sent t from primary care provider's office secondary to uncontrolled hypertension and chronic back pain with sciatica. Patient received clonidine and morphine and primary providers office then became slightly lethargic Here in the ED pain is better controlled blood pressure is better controlled we' ll observe for further management. *DC/Admit/Observation/Transfer Diagnosis at time of Disposition: Back pain with sciatica, Hypertension, poor control - Discharge Dispostion Condition at time of disposition: Good Admit: Yes - Referrals Referrals: Trish Muniz MD [Primary Care Provider] -
[2017-09-01 13:54] LABS: BASOPHIL 0.7 % (0-2.0); EOSINOPHIL 0.8 % (0-4.5); MCH 27.2 pg (25.7-33.7); MCHC 32.9 g/dl (32.0-36.0); MEAN CELL VOLUME 82.8 fl (80-96); MEAN PLT VOLUME 7.6 fl (7.5-11.1); NEUTROPHILS 73.3 % (42.8-82.8); PLATELET COUNT 290 K/MM3 (134-434); WHITE BLOOD COUNT 8.3 K/mm3 (4.0-10.8)
[2017-09-01 14:08] LABS: ALBUMIN 3.2 g/dl (3.5-5.0); ALK PHOS 75 U/L (32-92); ANION GAP 8 (8-16); BILIRUBIN,TOTAL 0.5 mg/dl (0.2-1.0); CALCIUM 8.6 mg/dl (8.4-10.2); CO2 26 mmol/L (22-28); CREATININE 0.9 mg/dl (0.6-1.3); GLUCOSE,RANDOM 257 mg/dl (74-106); SGOT/AST 22 U/L (10-42); SGPT/ALT 17 U/L (10-40); TOT PROT 5.7 g/dl (6.4-8.3)
[2017-09-01 15:26] VITALS: BMI 33.0
[2017-09-01] MEDS ORDERED: ACETAMINOPHEN WITH CODEINE 300MG/30MG TABLET PO PRN (19:09)
[2017-09-01] MEDS ORDERED: METOPROLOL TARTRATE 50 MG TABLET (FP) PO ONE (19:15)
[2017-09-01 19:30] LABS: URINE APPEARANCE Clear; URINE BILIRUBIN Negative (NEGATIVE); URINE BLOOD Negative (NEGATIVE); URINE COLOR YELLOW; URINE GLUCOSE (UA) Trace (NEGATIVE); URINE KETONE Negative (NEGATIVE); URINE LEUK ESTERASE Negative (NEGATIVE); URINE NITRITE Negative (NEGATIVE); URINE PROTEIN 1+ (NEGATIVE); URINE UROBILINOGEN 0.2 (0.2-1.0)
[2017-09-01] MEDS ORDERED: METOPROLOL SUCCINATE 50 MG TAB.SR.24H (FP) PO ONE (22:57)
[2017-09-01] MEDS: LATANOPROST 0.005% OPHTH SOLN 2.5ML BOTTLE OU SCH (23:23)
[2017-09-01] MEDS: SACUBITRIL/VALSARTAN 97 MG-103 MG TABLET PO SCH (23:23)
[2017-09-02 00:06] LABS: URINE RBC 0-3 /hpf (0-3); URINE WBC 0-3 /hpf (3-5)
[2017-09-02 00:07] LABS: URINE BACTERIA 1+ /hpf (NEGATIVE)
[2017-09-02] MEDS: LEVOTHYROXINE NA 100 MCG TABLET (FP) PO SCH (06:39)
[2017-09-02] MEDS: metFORMIN HCL 500 MG TABLET (FP) PO SCH (06:53)
[2017-09-02] MEDS: hydrALAZINE HCL 10 MG TABLET PO SCH ×5 (06:54→21:52)
[2017-09-02] MEDS: METOPROLOL SUCCINATE 100 MG TAB.SR.24H (FP) PO SCH ×2 (08:17→09:34)
[2017-09-02] MEDS: FUROSEMIDE 20 MG TABLET (FP) PO SCH (09:35)
--- NOTE | 2017-09-02 10:46 | EKG ---
Test Reason : Blood Pressure : / mmHG Vent. Rate : 121 BPM Atrial Rate : 121 BPM P-R Int : 000 ms QRS Dur : 106 ms QT Int : 314 ms P-R-T Axes : 000 -15 005 degrees QTc Int : 445 ms SINUS TACHYCARDIA MINIMAL VOLTAGE CRITERIA FOR LVH, MAY BE NORMAL VARIANT NONSPECIFIC ST ABNORMALITY WHEN COMPARED WITH ECG OF 01-SEP-2017 21:24, SINUS RHYTHM IS NO LONGER WITH 2ND DEGREE A-V BLOCK (MOBITZ I) Confirmed by MD SAVANNA, MELLY ([id number]) on 09/02/2017 10:45:53 AM Referred By: BRUNA Confirmed By:MELLY CORRALES MD
--- NOTE | 2017-09-02 10:48 | EKG ---
Test Reason : Blood Pressure : / mmHG Vent. Rate : 099 BPM Atrial Rate : 115 BPM P-R Int : 000 ms QRS Dur : 100 ms QT Int : 362 ms P-R-T Axes : 000 -08 -04 degrees QTc Int : 464 ms SINUS TACHYCARDIA WITH 2ND DEGREE A-V BLOCK (MOBITZ I) WHEN COMPARED WITH ECG OF 01-SEP-2017 18:25, no appparent change Confirmed by MD SAVANNA, MELLY ([id number]) on 09/02/2017 10:48:00 AM Referred By: Confirmed By:MELLY CORRALES MD
--- NOTE | 2017-09-02 10:51 | EKG ---
Test Reason : Blood Pressure : / mmHG Vent. Rate : 083 BPM Atrial Rate : 083 BPM P-R Int : 218 ms QRS Dur : 110 ms QT Int : 410 ms P-R-T Axes : 051 -08 -08 degrees QTc Int : 481 ms Baseline artifact SINUS RHYTHM WITH 1ST DEGREE A-V BLOCK MINIMAL VOLTAGE CRITERIA FOR LVH, MAY BE NORMAL VARIANT NON-SPECIFIC INTRA-VENTRICULAR CONDUCTION DELAY WHEN COMPARED WITH ECG OF 06-FEB-2017 10:32, NO SIGNIFICANT CHANGE WAS FOUND Confirmed by MD SAVANNA, MELLY ([id number]) on 09/02/2017 10:50:58 AM Referred By: LILLI Confirmed By:MELLY CORRALES MD
[2017-09-02] MEDS ORDERED: PT OWN MED DRAWER 7, Y5N ONE ×2 (11:19→21:25)
[2017-09-02] MEDS: SACUBITRIL/VALSARTAN 97 MG-103 MG TABLET PO SCH ×2 (12:08→21:52)
[2017-09-02] MEDS ORDERED: hydrALAZINE HCL 10 MG TABLET PO SCH (16:28)
[2017-09-02] MEDS ORDERED: ACETAMINOPHEN WITH CODEINE 300MG/30MG TABLET PO PRN (16:30)
--- NOTE | 2017-09-02 16:33 | HP ---
Admitting History and Physical - Admission Chief Complaint: intractable pain and elevated blood pressure History of Present Illness: 87 yo female with h/o HTN - Past Medical History Cardiovascular: Yes: HTN, Hyperlipdemia Gastrointestinal: Yes: Constipation ...: No Heme/Onc: Yes: Cancer, Other (breast cancer) Musculoskeletal: Yes: Chronic low back pain, Osteoarthritis Endocrine: Yes: Hypothyroidism - Smoking History Smoking history: Never smoked Have you smoked in the past 12 months: No Aproximately how many cigarettes per day: 0 - Alcohol/Substance Use Hx Alcohol Use: No Home Medications - Allergies Allergies/Adverse Reactions: Allergies Allergy/AdvReac Type Severity Reaction Status Date / Time No Known Allergies Allergy Verified 09/01/17 14:44 - Home Medications Home Medications: Ambulatory Orders Docusate Sodium [Colace -] 200 mg PO DAILY PRN 02/06/17 Latanoprost 0.005% Eye Drops [Xalatan 0.005% Eye Drops -] 1 drop .ROUTE HS 02/06 Metformin HCl [Glucophage] 1,000 mg PO DAILY 02/06/17 Simvastatin [Zocor -] 10 mg PO HS 02/06/17 Acetaminophen [Tylenol .Regular Strength -] 650 mg PO Q4H PRN #0 tablet Polyethylene Glycol 3350 [Miralax 119 gm Btl -] 17 gm PO DAILY bottle 02/11/17 Furosemide [Lasix] 20 mg PO DAILY 09/01/17 Glucosa Xavier 2Kcl/Chondroitin Xavier [Glucosamine & Chondroitin Cap] 1 each PO BID Hydralazine HCl [Apresoline -] 10 mg PO TID 09/01/17 Levothyroxine [Synthroid -] 100 mcg PO DAILY 09/01/17 Metoprolol Tartrate [Lopressor] 100 mg PO BID 09/01/17 Sacubitril/Valsartan [Entresto 97 mg-103 mg Tablet] 1 tab PO BID 09/01/17 Physical Examination Vital Signs: Vital Signs Temperature 98.2 F 09/02/17 14:07 Pulse Rate 91 H 09/02/17 14:07 Respiratory Rate 18 09/02/17 14:07 Blood Pressure 114/58 09/02/17 14:07 O2 Sat by Pulse Oximetry (%) 94 L 09/02/17 14:07 Problem List - Problems (1) Back pain with sciatica Assessment/Plan: Tyenol # Code(s): M54.30 - SCIATICA, UNSPECIFIED SIDE M54.9 - DORSALGIA, UNSPECIFIED (2) Hypertension, poor control Code(s): I10 - ESSENTIAL (PRIMARY) HYPERTENSION (3) Tachyarrhythmia Code(s): R00.0 - TACHYCARDIA, UNSPECIFIED
[2017-09-02] MEDS: LATANOPROST 0.005% OPHTH SOLN 2.5ML BOTTLE OU SCH (21:52)
[2017-09-02] MEDS ORDERED: DOCUSATE SODIUM 100 MG CAPSULE (FP) PO SCH (22:00)
[2017-09-02] MEDS ORDERED: ASPIRIN 81 MG CHEWABLE TABLETS PO SCH (22:00)
[2017-09-03 04:18] VITALS: BP 162/73; PULSE 91; TEMP 98.6
[2017-09-03] MEDS: LEVOTHYROXINE NA 100 MCG TABLET (FP) PO SCH (06:10)
[2017-09-03] MEDS: metFORMIN HCL 500 MG TABLET (FP) PO SCH (06:22)
[2017-09-03] MEDS: hydrALAZINE HCL 10 MG TABLET PO SCH (06:24)
[2017-09-03] MEDS ORDERED: PT OWN MED DRAWER 7, Y5N ONE ×2 (09:21→11:56)
[2017-09-03] MEDS: SACUBITRIL/VALSARTAN 97 MG-103 MG TABLET PO SCH (09:26)
[2017-09-03] MEDS: FUROSEMIDE 20 MG TABLET (FP) PO SCH (09:26)
[2017-09-03] MEDS ORDERED: METOPROLOL SUCCINATE 100 MG TAB.SR.24H (FP) PO SCH (10:00)
--- NOTE | 2017-09-03 10:04 | DS ---
Physical Examination Vital Signs: Vital Signs Temperature 98.6 F 09/03/17 04:17 Pulse Rate 91 H 09/03/17 04:17 Respiratory Rate 18 09/03/17 04:17 Blood Pressure 162/73 09/03/17 04:17 O2 Sat by Pulse Oximetry (%) 97 09/03/17 04:17 Constitutional: Yes: No Distress, Calm Eyes: Yes: Conjunctiva Clear, EOM Intact HENT: Yes: Atraumatic, Normocephalic Neck: Yes: Supple, Trachea Midline Cardiovascular: Yes: Regular Rate and Rhythm, S1, S2 Respiratory: Yes: Regular, CTA Bilaterally Gastrointestinal: Yes: Normal Bowel Sounds, Soft, Abdomen, Obese. No: Hepatomegaly, Splenomegaly Renal/: No: CVA Tenderness - Left Musculoskeletal: Yes: Other (right lower extremity pain) Extremities: No: Calf Tenderness Edema: No Peripheral Pulses WNL: Yes Neurological: Yes: Alert, Oriented Psychiatric: Yes: Alert, Oriented Discharge Summary Reason For Visit: HYPERTENSION Current Active Problems Back pain with sciatica (Acute) Hypertension, poor control (Acute) Tachyarrhythmia (Acute) Procedures: Principal: Blood pressure and HR monitorinig, medications adjustment Hospital Course: 87 yo female who was admitted after having a near syncopal episodes with complaints of not feeling well.The patient was monitored in telemetry and her medications were adjusted. The Toprol dosage was decreased, the HR is controlled , overall it seems that the patient requires less medications since she started Tylenol #3 and her pain is better controlled.She is not interested in rehabilitation at this time and she will be discharged home with visiting nurses. Condition: Good - Instructions Diet, Activity, Other Instructions: low sodium low cholesterol Referrals: Trish Muniz MD [Primary Care Provider] - - Home Medications Comprehensive Discharge Medication List: Ambulatory Orders Docusate Sodium [Colace -] 200 mg PO DAILY PRN 02/06/17 Latanoprost 0.005% Eye Drops [Xalatan 0.005% Eye Drops -] 1 drop .ROUTE HS 02/06 Metformin HCl [Glucophage] 1,000 mg PO DAILY 02/06/17 Simvastatin [Zocor -] 10 mg PO HS 02/06/17 Acetaminophen [Tylenol .Regular Strength -] 650 mg PO Q4H PRN #0 tablet Polyethylene Glycol 3350 [Miralax 119 gm Btl -] 17 gm PO DAILY bottle 02/11/17 Furosemide [Lasix] 20 mg PO DAILY 09/01/17 Glucosa Xavier 2Kcl/Chondroitin Xavier [Glucosamine & Chondroitin Cap] 1 each PO BID Hydralazine HCl [Apresoline -] 10 mg PO TID 09/01/17 Levothyroxine [Synthroid -] 100 mcg PO DAILY 09/01/17 Metoprolol Tartrate [Lopressor] 100 mg PO BID 09/01/17 Sacubitril/Valsartan [Entresto 97 mg-103 mg Tablet] 1 tab PO BID 09/01/17
[2017-09-03] MEDS ORDERED: hydrALAZINE HCL 25 MG TABLET (FP) PO SCH (14:00)
--- NOTE | 2017-09-03 15:27 | EKG ---
Test Reason : Blood Pressure : / mmHG Vent. Rate : 095 BPM Atrial Rate : 133 BPM P-R Int : 000 ms QRS Dur : 104 ms QT Int : 376 ms P-R-T Axes : 000 -09 -13 degrees QTc Int : 472 ms SINUS RHYTHM WITH 2ND DEGREE A-V BLOCK (MOBITZ I) NONSPECIFIC T WAVE ABNORMALITY ABNORMAL ECG WHEN COMPARED WITH ECG OF 01-SEP-2017 14:00, 2nd degree AV block (Mobitz type I) is now present Criteria for LVH is no longer present Confirmed by MINDA RAHMAN MD ([id number]) on 09/03/2017 3:27:17 PM Referred By: MD SARAH DUMONT Confirmed By:MINDA RAHMAN MD
== END 2017-09-03 12:50 | disposition home or self-care (01) ==
LOC: FER 13:00 → FM/S 14:51
PROVIDERS: ADMIT Internal Medicine; ATTEND Internal Medicine
DX: I10 Essential (primary) hypertension (principal); M54.30 Sciatica, unspecified side; E78.5 Hyperlipidemia, unspecified; E11.9 Type 2 diabetes mellitus without complications; E03.9 Hypothyroidism, unspecified; Z79.84 Long term (current) use of oral hypoglycemic drugs; Z85.3 Personal history of malignant neoplasm of breast; R00.0 Tachycardia, unspecified
CPT/HCPCS: 36415; 71010-TC; 80053; 81003; 81015; 85025; 93005; 93010; 99282-25; G0378

== ENCOUNTER 2017-11-17 13:05 | Observation (INO) | payer BC ==
--- NOTE | 2017-11-17 14:32 | PDOC ---
History of Present Illness - General Chief Complaint: Weakness Stated Complaint: WEAKNESS Time Seen by Provider: 11/17/17 13:49 History Source: Patient, Family Exam Limitations: No Limitations - History of Present Illness Initial Comments: This is an 87 YOF with h/o NIDDM on metformin, HTN on hydralazine, HLD, and hypothyroidism on levothyroxine. She presents with worsening ALFONSO and generalized weakness for the past week in the setting of recent URI (cough, sore throat, runny nose three weeks ago which has improved since then). She notes difficulty even walking from her bed across the room to her bathroom using her normal walker. She needs to stop or walk very slowly, which has not happened for her in the past. She additionally notes bilateral leg swelling, but denies any orthopnea, chest pain, palpitations, SOB at rest, fever, chills, nausea, vomiting, diarrhea, constipation, dysuria, rashes, numbness, tingling, focal weakness, headache, vision changes, dizziness, or other symptoms. She had her flu and pneumovax this year. Past History - Past Medical History Allergies/Adverse Reactions: Allergies Allergy/AdvReac Type Severity Reaction Status Date / Time No Known Allergies Allergy Verified 11/17/17 13:15 Home Medications: Ambulatory Orders Latanoprost 0.005% Eye Drops [Xalatan 0.005% Eye Drops -] 1 drop OU HS 02/06/17 Simvastatin [Zocor -] 10 mg PO HS 02/06/17 Glucosa Xavier 2Kcl/Chondroitin Xavier [Glucosamine & Chondroitin Cap] 1 each PO DAILY 09/01/17 Metoprolol Tartrate [Lopressor] 100 mg PO DAILY 09/01/17 Acetaminophen [Tylenol .Regular Strength -] 650 mg PO Q4H PRN #0 tablet Aspirin [ASA -] 81 mg PO HS tab.chew 09/03/17 Hydralazine HCl [Apresoline -] 25 mg PO TID 90 Days tablet 09/03/17 Levothyroxine [Synthroid -] 100 mcg PO DAILY@0700 tablet 09/03/17 Metformin HCl [Glucophage -] 1,000 mg PO DAILY@0700 tablet 09/03/17 Cancer: Yes (LEFT BREAST LUMPECTOMY) COPD: No Diabetes: Yes HTN: Yes Thyroid Disease: Yes - Suicide/Smoking/Psychosocial Hx Smoking History: Never smoked Have you smoked in the past 12 months: No Number of Cigarettes Smoked Daily: 0 Cigars Per Day: 0 Hx Alcohol Use: No Drug/Substance Use Hx: No Substance Use Type: None Hx Substance Use Treatment: No Review of Systems - Review of Systems Able to Perform ROS?: Yes Constitutional: Yes: Weakness (generalized). No: Chills, Fever, Unexplained wgt Loss HEENTM: No: Nose Congestion, Throat Pain Respiratory: Yes: Cough, SOB with Exertion. No: Orthopnea, SOB at Rest Cardiac (ROS): Yes: Edema. No: Chest Pain, Palpitations ABD/GI: No: Constipated, Diarrhea, Nausea, Vomiting : No: Burning, Dysuria Musculoskeletal: No: Back Pain, Neck Pain Integumentary: No: Bruising, Rash Neurological: No: Headache, Numbness, Tingling, Dizziness Endocrine: No: Unexplained Weight Gain, Unexplained Weight Loss *Physical Exam - Vital Signs Last Vital Signs Temp Pulse Resp BP Pulse Ox 98.4 F 105 H 18 175/82 95 11/17/17 13:15 11/17/17 13:15 11/17/17 13:15 11/17/17 13:15 11/17/17 13:52 - Physical Exam General Appearance: Yes: Nourished, Appropriately Dressed, Other (very pleasant elderly female in no distress and answering questions appropriately, accompanied at bedside by her son in law). No: Apparent Distress HEENT: positive: EOMI, KRISTAN, Normal Voice, Hearing Grossly Normal, Other (mild bilateral scleral injection). negative: Scleral Icterus (R), Scleral Icterus (L ), Pharyngeal Erythema (slight tacky mucous membranes), Tonsillar Exudate, Tonsillar Erythema, Nasal Congestion, TM Bulging, TM Dull, TM Erythema, Excessive drooling Neck: positive: Trachea midline, Supple. negative: Tender, Rigid Respiratory/Chest: positive: Lungs Clear, Normal Breath Sounds. negative: Respiratory Distress, Accessory Muscle Use, Crackles, Rhonchi, Stridor, Wheezing Cardiovascular: positive: Regular Rhythm, Edema (2+ pitting edema BLE), Tachycardia. negative: JVD, Murmur, Gallop/S3, Gallop/S4 Gastrointestinal/Abdominal: positive: Normal Bowel Sounds, Soft. negative: Tender, Organomegaly, Pulsatile Mass, Guarding Musculoskeletal: positive: Normal Inspection. negative: Decreased Range of Motion, Vertebral Tenderness Extremity: positive: Normal Capillary Refill, Normal Inspection, Normal Range of Motion. negative: Tender, Cyanosis Integumentary: positive: Normal Color, Dry, Warm. negative: Erythema, Rash, Bruising Neurologic: positive: child care cook II-XII NML intact, Fully Oriented, Alert, Normal Mood/ Affect, Normal Response, Motor Strength 5/5, Finger to Nose (normal). negative : EOM Palsy, Facial Droop, Confused, Disoriented ED Treatment Course - LABORATORY CBC & Chemistry Diagram: 11/17/17 14:28 11/17/17 14:28 - RADIOLOGY Radiology Studies Ordered: Category Date Time Status CHEST X-RAY PORTABLE* [RAD] Stat Radiology 11/17/17 14:20 Ordered Medical Decision Making - Medical Decision Making 87 YOF with h/o NIDDM, HTN, HLD, hypothyroidism who p/w ALFONSO and generalized weakness with recent URI. On exam she is hypertensive and mildly tachycardic, no distress, normal heart/ lung/abdomen exam. 2+ pitting edema BLE. DDX 11/17/17 16:[address] Muniz for admission. *DC/Admit/Observation/Transfer Diagnosis at time of Disposition: Weakness generalized - Discharge Dispostion Condition at time of disposition: Guarded Admit: Yes - Referrals - Patient Instructions - Post Discharge Activity
--- NOTE | 2017-11-17 15:08 | PDOC ---
Attending Attestation - Resident Resident Name: WardBreanna - ED Attending Attestation I have performed the following: I have examined & evaluated the patient, The case was reviewed & discussed with the resident, I agree w/resident's findings & plan, Exceptions are as noted - Medical Decision Making 11/17/17 15:12 A portion of this note was written by my scribe, under my supervision. Vital Signs Temp Pulse Resp BP Pulse Ox 98.4 F 105 H 18 175/82 95 11/17/17 13:15 11/17/17 13:15 11/17/17 13:15 11/17/17 13:15 11/17/17 13:52 87 year old female with past medical history of breast cancer status post right- sided mastectomy, hypertension, diabetes, hyperlipidemia, hypothyroidism sent in to the ED from her primary care physician's office Dr. Muniz for worsening weakness. Approximate Paron time in 2016, the patient had developed a productive cough that had improved since then. However, last week, the patient has been endorsing generalized weakness and fatigue but no chest pain or shortness of breath. States that her cough is resolving. Patient has been sober family weak that she is unable to get of bed. The patient went to visit her primary care physician's office and sent the patient to the ED. Patient is overall having some forme of failure to thrive. We'll obtain blood work including cardiac, metabolic, infectious. Chest x-ray, labs, urinalysis. If the patient is persistently weak, we'll likely need to admit the patient to hospital for further evaluation. 11/17/17 17:01 CBC, BMP 11/17/17 14:28 11/17/17 14:28 CMP Sodium 131 mmol/L (136-145) L 11/17/17 14:28 Potassium 5.5 mmol/L (3.5-5.1) H D 11/17/17 14:28 Chloride 94 mmol/L (98-107) L 11/17/17 14:28 Carbon Dioxide 25 mmol/L (21-32) 11/17/17 14:28 Anion Gap 12 (8-16) 11/17/17 14:28 BUN 12 mg/dL (7-18) 11/17/17 14:28 Creatinine 0.8 mg/dL (0.55-1.02) 11/17/17 14:28 Creat Clearance w eGFR > 60 (>60) 11/17/17 14:28 Random Glucose 133 mg/dL (74-106) H 11/17/17 14:28 Calcium 8.7 mg/dL (8.5-10.1) 11/17/17 14:28 Magnesium 2.0 mg/dL (1.8-2.4) 11/17/17 14:28 Total Bilirubin 0.5 mg/dL (0.2-1.0) D 11/17/17 14:28 AST 65 U/L (15-37) H D 11/17/17 14:28 ALT 19 U/L (12-78) 11/17/17 14:28 Alkaline Phosphatase 139 U/L (45-117) H D 11/17/17 14:28 Creatine Kinase 96 IU/L (26-192) 11/17/17 14:28 Troponin I < 0.02 ng/ml (0.00-0.05) 11/17/17 14:28 B-Natriuretic Peptide 522.20 pg/ml (5-450) H 11/17/17 14:28 Total Protein 7.0 g/dl (6.4-8.2) 11/17/17 14:28 Albumin 2.9 g/dl (3.4-5.0) L 11/17/17 14:28 Labs reviewed. Pt continues to feel weak. Will admit the patient to the hospital. <Kevin Quiroz - Last Filed: 11/17/17 17:01> - HPI HPI: 11/17/17 18:54 Pt is a 87 yo F with a PMHx of NIDDM, HTN, HLD, Chronic lower back pain, hypothyroidism who presents to the ED with generalized weakness for the past 3 weeks. Patient reports recent URI that began 3 weeks ago and since then has been increasingly weak. Patient has not been able walk or get out of bed. Patient endorses worsening dyspnea on exertion and lower extremity edema. Patient was also seen at PCPs office for L ear infection however was sent to the ED for her weakness. PCP: Dr. Muniz - Physicial Exam PE: 11/17/17 18:54 GENERAL: Awake, alert, and fully oriented, in no acute distress HEAD: No signs of trauma EYES: PERRLA, EOMI, sclera anicteric, conjunctiva clear ENT: Auricles normal inspection, hearing grossly normal, nares patent, oropharynx clear without exudates. Moist mucosa NECK: Normal ROM, supple, no lymphadenopathy, JVD, or masses LUNGS: Breath sounds equal, clear to auscultation bilaterally. No wheezes, and no crackles HEART: Regular rate and rhythm, normal S1 and S2, no murmurs, rubs or gallops ABDOMEN: Soft, nontender, normoactive bowel sounds. No guarding, no rebound. No masses EXTREMITIES: Normal range of motion. No clubbing or cyanosis. No cords, erythema , or tenderness. 1+ nonpitting edema bilaterally. NEUROLOGICAL: Cranial nerves II through XII grossly intact. Normal speech, normal gait SKIN: Warm, Dry, normal turgor, no rashes or lesions noted. <Alanna Valdez - Last Filed: 11/17/17 18:54> Heart Score/ECG Review #1 11/17/17 15:13 NSR 103, 1st degree AV block, OVH, no std/mau, TWI III, QTC 463 msec <Kevin Quiroz - Last Filed: 11/17/17 17:01>
[2017-11-17 15:12] LABS: BASO % 1.4 % (0-2.0); EOS % 1.1 % (0-4.5); HEMATOCRIT 35.7 % (32.4-45.2); HEMOGLOBIN 11.7 GM/dL (10.7-15.3); LYMPH % 17.1 % (8-40); MCHC 32.9 g/dl (32.0-36.0); MEAN CELL VOLUME 85.1 fl (80-96); MEAN PLT VOLUME 7.1 fl (7.5-11.1); MONO % 7.9 % (3.8-10.2); NEUT % 72.5 % (42.8-82.8); PLATELET COUNT 500 K/MM3 (134-434); RBC 4.19 M/mm3 (3.60-5.2); RDW 16.7 % (11.6-15.6); WHITE BLOOD COUNT 10.9 K/mm3 (4.0-10.0)
[2017-11-17 15:16] LABS: INR 1.04 (0.82-1.09); PROTHROMBIN TIME (PATIENT) 11.7 SEC (9.98-11.88)
[2017-11-17 15:24] LABS: ALBUMIN 2.9 g/dl (3.4-5.0); ANION GAP 12 (8-16); BILIRUBIN,TOTAL 0.5 mg/dL (0.2-1.0); BLOOD UREA NITROGEN 12 mg/dL (7-18); CALCIUM 8.7 mg/dL (8.5-10.1); CHLORIDE 94 mmol/L (98-107); CO2 25 mmol/L (21-32); CREATININE 0.8 mg/dL (0.55-1.02); GLUCOSE,RANDOM 133 mg/dL (74-106); SGPT/ALT 19 U/L (12-78); SODIUM 131 mmol/L (136-145)
[2017-11-17 15:29] LABS: ALK PHOS 139 U/L (45-117)
[2017-11-17 15:30] LABS: POTASSIUM 5.5 mmol/L (3.5-5.1); SGOT/AST 65 U/L (15-37)
[2017-11-17 16:52] LABS: URINE APPEARANCE CLEAR; URINE BILIRUBIN NEGATIVE (NEGATIVE); URINE BLOOD NEGATIVE (NEGATIVE); URINE COLOR LTYELLOW; URINE GLUCOSE (UA) NEGATIVE (NEGATIVE); URINE KETONE NEGATIVE (NEGATIVE); URINE LEUK ESTERASE TRACE (NEGATIVE); URINE NITRITE NEGATIVE (NEGATIVE); URINE UROBILINOGEN NEGATIVE mg/dL (0.2-1.0)
[2017-11-17] MEDS ORDERED: hydrALAZINE HCL 25 MG TABLET (FP) PO ONE (17:01)
[2017-11-17] MEDS ORDERED: hydrALAZINE HCL 25 MG TABLET (FP) ONE ×2 (17:02→22:09)
[2017-11-17 17:31] LABS: URINE PROTEIN 1+ (NEGATIVE)
[2017-11-17 17:34] LABS: EPI CELLS RARE /HPF (FEW)
--- NOTE | 2017-11-17 19:30 | HP ---
Admitting History and Physical - Admission Chief Complaint: weakness, poor appetite, cough History of Present Illness: 87 year old female seen by me in the office today and sent to Er for admission because of extreme weakness which followed an upper respiratory tract infection.The patient continues to cough, is unable to walk and can not get up from chair. The patient lives with her daughter and son in law. History Source: Patient, Family Member Limitations to Obtaining History: No Limitations - Past Medical History Cardiovascular: Yes: HTN, Hyperlipdemia Gastrointestinal: Yes: Constipation Heme/Onc: Yes: Cancer (right breast cancer), Other (breast cancer) Musculoskeletal: Yes: Chronic low back pain, Osteoarthritis Endocrine: Yes: Hypothyroidism - Smoking History Smoking history: Never smoked Have you smoked in the past 12 months: No Aproximately how many cigarettes per day: 0 - Alcohol/Substance Use Hx Alcohol Use: No Home Medications - Allergies Allergies/Adverse Reactions: Allergies Allergy/AdvReac Type Severity Reaction Status Date / Time No Known Allergies Allergy Verified 11/17/17 13:15 - Home Medications Home Medications: Ambulatory Orders Latanoprost 0.005% Eye Drops [Xalatan 0.005% Eye Drops -] 1 drop OU HS 02/06/17 Simvastatin [Zocor -] 10 mg PO HS 02/06/17 Glucosa Xavier 2Kcl/Chondroitin Xavier [Glucosamine & Chondroitin Cap] 1 each PO DAILY 09/01/17 Metoprolol Tartrate [Lopressor] 100 mg PO DAILY 09/01/17 Acetaminophen [Tylenol .Regular Strength -] 650 mg PO Q4H PRN #0 tablet Aspirin [ASA -] 81 mg PO HS tab.chew 09/03/17 Hydralazine HCl [Apresoline -] 25 mg PO TID 90 Days tablet 09/03/17 Levothyroxine [Synthroid -] 100 mcg PO DAILY@0700 tablet 09/03/17 Metformin HCl [Glucophage -] 1,000 mg PO DAILY@0700 tablet 09/03/17 Aspirin [ASA -] 81 mg PO DAILY tab.chew 11/20/17 Guaifenesin [Robitussin -] 10 ml PO Q6H PRN cup 11/20/17 Hydralazine HCl [Apresoline -] 25 mg PO TID tablet 11/20/17 Levothyroxine [Synthroid -] 100 mcg PO DAILY@0700 tablet 11/20/17 Loratadine [Claritin -] 10 mg PO DAILY tablet 11/20/17 Metformin Xr [Glucophage Xr -] 1,000 mg PO DAILY@0700 tab.sr.24h 11/20/17 Metoprolol Succinate [Toprol XL -] 100 mg PO DAILY tab.sr.24h 11/20/17 Sacubitril/Valsartan [Entresto 97 mg-103 mg Tablet] 1 tab PO BID tablet Review of Systems - Review of Systems Constitutional: reports: Lethargy, Weakness Eyes: reports: No Symptoms HENT: reports: Ear Pain (left ear), Hearing Loss Neck: reports: No Symptoms Cardiovascular: reports: Shortness of Breath. denies: Edema Respiratory: reports: Cough. denies: Orthopnea, SOB on Exertion, Wheezing Gastrointestinal: denies: Vomiting Genitourinary: reports: No Symptoms Breasts: reports: No Symptoms Reported Physical Examination Vital Signs: Vital Signs Temperature 98.4 F 11/17/17 13:15 Pulse Rate 92 H 11/17/17 19:00 Respiratory Rate 18 11/17/17 19:00 Blood Pressure 178/89 11/17/17 19:00 O2 Sat by Pulse Oximetry (%) 96 11/17/17 19:00 Constitutional: Yes: No Distress, Anxious Eyes: Yes: Conjunctiva Clear, EOM Intact HENT: Yes: Atraumatic, Normocephalic Neck: Yes: Supple, Trachea Midline Cardiovascular: Yes: Regular Rate and Rhythm, S1, S2 Respiratory: Yes: Regular, CTA Bilaterally Gastrointestinal: Yes: Normal Bowel Sounds, Soft, Abdomen, Obese. No: Hepatomegaly, Splenomegaly ...Rectal Exam: Yes: Deferred Musculoskeletal: Yes: WNL Extremities: Yes: WNL. No: Calf Tenderness Edema: No Peripheral Pulses WNL: No Neurological: Yes: Alert, Oriented Psychiatric: Yes: Alert, Oriented Labs: CBC, BMP 11/17/17 14:28 11/17/17 14:28 Imaging - Results Chest X-ray: Other (read by me: no pleural effusion , no infiltrate, no masses) Problem List - Problems (1) Weakness generalized Assessment/Plan: [possible dehydration and deconditioning, patient in convalescence will rehabilitate upon discharge Code(s): R53.1 - WEAKNESS (2) Bronchitis Assessment/Plan: started on levaquin 500 mg iv daily Code(s): J40 - BRONCHITIS, NOT SPECIFIED ACUTE OR CHRONIC (3) Back pain with sciatica Assessment/Plan: refuses Percocet, can use tylenol prn Code(s): M54.30 - SCIATICA, UNSPECIFIED SIDE; M54.9 - DORSALGIA, UNSPECIFIED (4) Hypertension, poor control Assessment/Plan: continue Hydralazine, Toprol, Entresto Code(s): I10 - ESSENTIAL (PRIMARY) HYPERTENSION (5) Hyponatremia Assessment/Plan: monitor level of sodium the hyponatremia is chronic Code(s): E87.1 - HYPO-OSMOLALITY AND HYPONATREMIA (6) Hyperkalemia Assessment/Plan: monitor, repeat CMP in am Code(s): E87.5 - HYPERKALEMIA (7) Osteoarthritis Assessment/Plan: Tylenol Code(s): M19.90 - UNSPECIFIED OSTEOARTHRITIS, UNSPECIFIED SITE
[2017-11-17] MEDS ORDERED: ALPRAZolam 0.25 MG TABLET PO ONE (22:41)
[2017-11-17] MEDS ORDERED: METOPROLOL TARTRATE 50 MG TABLET (FP) PO ONE (22:44)
[2017-11-18] MEDS: hydrALAZINE HCL 25 MG TABLET (FP) PO SCH ×4 (00:05→22:32)
[2017-11-18] MEDS: SACUBITRIL/VALSARTAN 97 MG-103 MG TABLET PO SCH ×3 (00:05→22:36)
[2017-11-18] MEDS ORDERED: hydrALAZINE HCL 25 MG TABLET (FP) ONE ×2 (01:36→06:58)
[2017-11-18] MEDS ORDERED: guaiFENesin/D-METHORPHAN HB 10 ML UNIT-DOSE CUPS ONE (01:36)
[2017-11-18] MEDS ORDERED: ALPRAZolam 0.25 MG TABLET ONE (01:36)
[2017-11-18 02:32] LABS: BASO % 1.2 % (0-2.0); EOS % 1.5 % (0-4.5); HEMATOCRIT 34.9 % (32.4-45.2); HEMOGLOBIN 11.5 GM/dL (10.7-15.3); LYMPH % 14.9 % (8-40); MCH 27.9 pg (25.7-33.7); MCHC 33.1 g/dl (32.0-36.0); MEAN CELL VOLUME 84.4 fl (80-96); MEAN PLT VOLUME 6.7 fl (7.5-11.1); MONO % 9.2 % (3.8-10.2); NEUT % 73.2 % (42.8-82.8); PLATELET COUNT 481 K/MM3 (134-434); RBC 4.13 M/mm3 (3.60-5.2); RDW 16.6 % (11.6-15.6); WHITE BLOOD COUNT 10.3 K/mm3 (4.0-10.0)
[2017-11-18 02:56] LABS: ALBUMIN 2.8 g/dl (3.4-5.0); ANION GAP 9 (8-16); BILIRUBIN,TOTAL 0.4 mg/dL (0.2-1.0); BLOOD UREA NITROGEN 14 mg/dL (7-18); CHLORIDE 97 mmol/L (98-107); CO2 27 mmol/L (21-32); CREATININE 0.6 mg/dL (0.55-1.02); GLUCOSE,RANDOM 155 mg/dL (74-106); POTASSIUM 4.6 mmol/L (3.5-5.1); SGOT/AST 27 U/L (15-37); SGPT/ALT 16 U/L (12-78); SODIUM 133 mmol/L (136-145); TOT PROT 6.2 g/dl (6.4-8.2)
[2017-11-18 02:57] LABS: ALK PHOS 131 U/L (45-117)
[2017-11-18] MEDS: LEVOTHYROXINE NA 100 MCG TABLET (FP) PO SCH (07:46)
[2017-11-18 08:31] LABS: BASO % 1.3 % (0-2.0); EOS % 1.2 % (0-4.5); HEMATOCRIT 35.8 % (32.4-45.2); HEMOGLOBIN 11.3 GM/dL (10.7-15.3); MCH 26.9 pg (25.7-33.7); MCHC 31.6 g/dl (32.0-36.0); MEAN CELL VOLUME 85.1 fl (80-96); MEAN PLT VOLUME 6.6 fl (7.5-11.1); MONO % 9.8 % (3.8-10.2); NEUT % 71.7 % (42.8-82.8); PLATELET COUNT 446 K/MM3 (134-434); RBC 4.21 M/mm3 (3.60-5.2); RDW 16.8 % (11.6-15.6); WHITE BLOOD COUNT 9.4 K/mm3 (4.0-10.0)
[2017-11-18 08:35] LABS: ALBUMIN 2.7 g/dl (3.4-5.0); ALK PHOS 125 U/L (45-117); ANION GAP 9 (8-16); BILIRUBIN,TOTAL 0.5 mg/dL (0.2-1.0); BLOOD UREA NITROGEN 14 mg/dL (7-18); CALCIUM 8.6 mg/dL (8.5-10.1); CHLORIDE 98 mmol/L (98-107); CO2 27 mmol/L (21-32); CREATININE 0.7 mg/dL (0.55-1.02); GLUCOSE,RANDOM 138 mg/dL (74-106); POTASSIUM 4.6 mmol/L (3.5-5.1); SGOT/AST 24 U/L (15-37); SGPT/ALT 14 U/L (12-78); SODIUM 134 mmol/L (136-145); TOT PROT 6.1 g/dl (6.4-8.2)
[2017-11-18] MEDS: ASPIRIN 81 MG CHEWABLE TABLETS PO SCH (11:38)
[2017-11-18] MEDS: LORATADINE 10 MG TABLET PO SCH (11:38)
[2017-11-18] MEDS: HEPARIN NA (PORCINE) 5,000 UNITS/ML 1ML VIAL SQ SCH ×2 (11:39→22:33)
[2017-11-18] MEDS: METOPROLOL SUCCINATE 100 MG TAB.SR.24H (FP) PO SCH (11:39)
[2017-11-18] MEDS: LEVOFLOXACIN 500 MG IVPB 500 MG/100 ML BAG IVPB SCH (11:39)
[2017-11-18 15:04] VITALS: BMI 33.6
--- NOTE | 2017-11-18 15:11 | EKG ---
Test Reason : Blood Pressure : / mmHG Vent. Rate : 111 BPM Atrial Rate : 111 BPM P-R Int : 198 ms QRS Dur : 100 ms QT Int : 332 ms P-R-T Axes : 000 -14 -12 degrees QTc Int : 451 ms SINUS TACHYCARDIA MODERATE VOLTAGE CRITERIA FOR LVH, MAY BE NORMAL VARIANT BORDERLINE ECG WHEN COMPARED WITH ECG OF 17-NOV-2017 14:09, NO SIGNIFICANT CHANGE WAS FOUND Confirmed by Jamarcus Miller MD ([id number]) on 11/18/2017 3:10:43 PM Referred By: Confirmed By:Jamarcus Miller MD
--- NOTE | 2017-11-18 15:13 | EKG ---
Test Reason : Blood Pressure : / mmHG Vent. Rate : 103 BPM Atrial Rate : 103 BPM P-R Int : 212 ms QRS Dur : 108 ms QT Int : 354 ms P-R-T Axes : 073 -15 -14 degrees QTc Int : 463 ms SINUS TACHYCARDIA WITH 1ST DEGREE A-V BLOCK MODERATE VOLTAGE CRITERIA FOR LVH, MAY BE NORMAL VARIANT BORDERLINE ECG WHEN COMPARED WITH ECG OF 02-SEP-2017 08:37, [place] INTERVAL HAS INCREASED Confirmed by Jamarcus Miller MD ([id number]) on 11/18/2017 3:13:06 PM Referred By: Confirmed By:Jamarcus Miller MD
[2017-11-18] MEDS ORDERED: PT OWN MED DRAWER 7, Y5N ONE (22:13)
[2017-11-18] MEDS: guaiFENesin 200 MG/10 ML 10 ML UNIT-DOSE CUPS PO PRN (22:33)
[2017-11-18] MEDS: ATORVASTATIN CA 10 MG TABLET (FP) PO SCH (22:33)
--- NOTE | 2017-11-18 23:36 | PN ---
Progress Note, Physician Chief Complaint: cough, weakness History of Present Illness: The pateint was admitted for cough and weakness associated with poor appetite. Symptom started after a protracted episode of bronchitis for which she did not present to the doctor.The patient does not have dyspnea and is nont wheezong, her cough is persistinig - Current Medication List Current Medications: Active Medications Aspirin (Asa -) 81 mg PO DAILY [facility] Last Admin: 11/18/17 11:38 Dose: 81 mg Atorvastatin Calcium (Lipitor -) 10 mg PO HS [facility] Last Admin: 11/18/17 22:33 Dose: 10 mg Guaifenesin (Robitussin -) 10 ml PO Q6H PRN PRN Reason: COUGH Last Admin: 11/18/17 22:33 Dose: 10 ml Heparin Sodium (Porcine) (Heparin -) 5,000 unit SQ BID [facility] Last Admin: 11/18/17 22:33 Dose: 5,000 unit Hydralazine HCl (Apresoline -) 25 mg PO TID [facility] Last Admin: 11/18/17 22:32 Dose: 25 mg Levofloxacin (Levaquin 500 Mg Premixed Ivpb -) 500 mg in 100 mls @ 100 mls/hr IVPB DAILY [facility] Last Admin: 11/18/17 11:39 Dose: 100 mls/hr Levothyroxine Sodium (Synthroid -) 100 mcg PO DAILY@0700 [facility] Last Admin: 11/18/17 07:46 Dose: 100 mcg Loratadine (Claritin -) 10 mg PO DAILY [facility] Last Admin: 11/18/17 11:38 Dose: 10 mg Metformin HCl (Glucophage Xr -) 1,000 mg PO DAILY@0700 [facility] Last Admin: 11/18/17 07:45 Dose: 1,000 mg Metoprolol Succinate (Toprol Xl -) 100 mg PO DAILY [facility] Last Admin: 11/18/17 11:39 Dose: 100 mg - Objective Vital Signs: Vital Signs Temperature 97.9 F 11/18/17 21:16 Pulse Rate 97 H 11/18/17 21:16 Respiratory Rate 20 11/18/17 21:16 Blood Pressure 144/75 11/18/17 21:16 O2 Sat by Pulse Oximetry (%) 99 11/18/17 21:17 Constitutional: Yes: No Distress, Calm Eyes: Yes: Conjunctiva Clear, EOM Intact HENT: Yes: Atraumatic, Normocephalic Neck: Yes: Supple, Trachea Midline Cardiovascular: Yes: Regular Rate and Rhythm, S1, S2 Respiratory: Yes: Regular, CTA Bilaterally Gastrointestinal: Yes: Normal Bowel Sounds, Soft. No: Hepatomegaly, Splenomegaly Genitourinary: Yes: WNL Breast(s): Yes: WNL Musculoskeletal: Yes: WNL Extremities: Yes: WNL Edema: No Peripheral Pulses WNL: Yes Neurological: Yes: Alert, Oriented Psychiatric: Yes: Alert, Oriented Labs: CBC, BMP 11/18/17 07:30 11/18/17 07:30 INR, PTT INR 1.04 (0.82-1.09) 11/17/17 14:28 Problem List - Problems (1) Weakness generalized Assessment/Plan: [possible dehydration and deconditioning, patient in convalescence will rehabilitate upon discharge Code(s): R53.1 - WEAKNESS (2) Bronchitis Assessment/Plan: started on levaquin 500 mg iv daily Code(s): J40 - BRONCHITIS, NOT SPECIFIED ACUTE OR CHRONIC (3) Back pain with sciatica Assessment/Plan: refuses Percocet, can use tylenol prn Code(s): M54.30 - SCIATICA, UNSPECIFIED SIDE; M54.9 - DORSALGIA, UNSPECIFIED (4) Hypertension, poor control Assessment/Plan: continue Hydralazine, Toprol, Entresto Code(s): I10 - ESSENTIAL (PRIMARY) HYPERTENSION (5) Hyponatremia Assessment/Plan: monitor level of sodium the hyponatremia is chronic Code(s): E87.1 - HYPO-OSMOLALITY AND HYPONATREMIA (6) Hyperkalemia Assessment/Plan: monitor, repeat CMP in am Code(s): E87.5 - HYPERKALEMIA (7) Osteoarthritis Assessment/Plan: Tylenol Code(s): M19.90 - UNSPECIFIED OSTEOARTHRITIS, UNSPECIFIED SITE
[2017-11-19] MEDS: hydrALAZINE HCL 25 MG TABLET (FP) PO SCH ×3 (06:29→22:08)
[2017-11-19] MEDS: LEVOTHYROXINE NA 100 MCG TABLET (FP) PO SCH (07:03)
[2017-11-19 08:24] LABS: CHLORIDE 95 mmol/L (98-107); POTASSIUM 4.4 mmol/L (3.5-5.1); SODIUM 131 mmol/L (136-145)
[2017-11-19 08:32] LABS: ALBUMIN 2.5 g/dl (3.4-5.0); ALK PHOS 113 U/L (45-117); ANION GAP 10 (8-16); BILIRUBIN,TOTAL 0.5 mg/dL (0.2-1.0); BLOOD UREA NITROGEN 12 mg/dL (7-18); CO2 26 mmol/L (21-32); CREATININE 0.6 mg/dL (0.55-1.02); GLUCOSE,RANDOM 142 mg/dL (74-106); SGOT/AST 22 U/L (15-37); SGPT/ALT 13 U/L (12-78); TOT PROT 5.8 g/dl (6.4-8.2)
[2017-11-19] MEDS ORDERED: PT OWN MED DRAWER 7, Y5N ONE (09:28)
[2017-11-19] MEDS: LEVOFLOXACIN 500 MG IVPB 500 MG/100 ML BAG IVPB SCH (09:40)
[2017-11-19] MEDS: ASPIRIN 81 MG CHEWABLE TABLETS PO SCH (09:41)
[2017-11-19] MEDS: LORATADINE 10 MG TABLET PO SCH (09:41)
[2017-11-19] MEDS: SACUBITRIL/VALSARTAN 97 MG-103 MG TABLET PO SCH ×2 (09:41→22:09)
[2017-11-19] MEDS: METOPROLOL SUCCINATE 100 MG TAB.SR.24H (FP) PO SCH (09:42)
[2017-11-19] MEDS: HEPARIN NA (PORCINE) 5,000 UNITS/ML 1ML VIAL SQ SCH ×2 (09:42→22:10)
[2017-11-19] MEDS: ATORVASTATIN CA 10 MG TABLET (FP) PO SCH (22:10)
[2017-11-19] MEDS: LATANOPROST 0.005% OPHTH SOLN 2.5ML BOTTLE OU SCH (22:11)
[2017-11-19] MEDS: guaiFENesin 200 MG/10 ML 10 ML UNIT-DOSE CUPS PO PRN (22:16)
[2017-11-20] MEDS: hydrALAZINE HCL 25 MG TABLET (FP) PO SCH ×2 (06:35→13:05)
[2017-11-20] MEDS: LEVOTHYROXINE NA 100 MCG TABLET (FP) PO SCH (06:35)
[2017-11-20] MEDS: LORATADINE 10 MG TABLET PO SCH (09:25)
[2017-11-20] MEDS: ASPIRIN 81 MG CHEWABLE TABLETS PO SCH (09:25)
[2017-11-20] MEDS: METOPROLOL SUCCINATE 100 MG TAB.SR.24H (FP) PO SCH (09:25)
[2017-11-20] MEDS: LEVOFLOXACIN 500 MG IVPB 500 MG/100 ML BAG IVPB SCH (09:26)
[2017-11-20] MEDS: HEPARIN NA (PORCINE) 5,000 UNITS/ML 1ML VIAL SQ SCH ×2 (09:26→21:11)
[2017-11-20] MEDS: SACUBITRIL/VALSARTAN 97 MG-103 MG TABLET PO SCH (09:26)
--- NOTE | 2017-11-20 17:09 | DS ---
Physical Examination Vital Signs: Vital Signs Temperature 98.7 F 11/20/17 14:19 Pulse Rate 99 H 11/20/17 14:19 Respiratory Rate 20 11/20/17 14:19 Blood Pressure 106/53 11/20/17 14:19 O2 Sat by Pulse Oximetry (%) 98 11/20/17 09:00 Constitutional: Yes: No Distress, Calm Eyes: Yes: Conjunctiva Clear, EOM Intact HENT: Yes: Atraumatic, Normocephalic Neck: Yes: Supple, Trachea Midline Cardiovascular: Yes: Regular Rate and Rhythm, S1, S2 Respiratory: Yes: Regular, CTA Bilaterally Gastrointestinal: Yes: Normal Bowel Sounds, Soft, Abdomen, Obese. No: Hepatomegaly, Splenomegaly ...Rectal Exam: Yes: Deferred Musculoskeletal: Yes: Back Pain Extremities: No: Calf Tenderness Edema: No Peripheral Pulses WNL: Yes Psychiatric: Yes: Alert, Oriented Labs: CBC, BMP 11/18/17 07:30 11/19/17 06:00 Discharge Summary Reason For Visit: WEAKNESS Current Active Problems Bronchitis (Acute) Hyperkalemia (Acute) Osteoarthritis (Acute) Weakness generalized (Acute) Condition: Guarded - Instructions - Home Medications Comprehensive Discharge Medication List: Ambulatory Orders Latanoprost 0.005% Eye Drops [Xalatan 0.005% Eye Drops -] 1 drop OU HS 02/06/17 Simvastatin [Zocor -] 10 mg PO HS 02/06/17 Glucosa Xavier 2Kcl/Chondroitin Xavier [Glucosamine & Chondroitin Cap] 1 each PO DAILY 09/01/17 Metoprolol Tartrate [Lopressor] 100 mg PO DAILY 09/01/17 Acetaminophen [Tylenol .Regular Strength -] 650 mg PO Q4H PRN #0 tablet Aspirin [ASA -] 81 mg PO HS tab.chew 09/03/17 Hydralazine HCl [Apresoline -] 25 mg PO TID 90 Days tablet 09/03/17 Levothyroxine [Synthroid -] 100 mcg PO DAILY@0700 tablet 09/03/17 Metformin HCl [Glucophage -] 1,000 mg PO DAILY@0700 tablet 09/03/17 Aspirin [ASA -] 81 mg PO DAILY tab.chew 11/20/17 Guaifenesin [Robitussin -] 10 ml PO Q6H PRN cup 11/20/17 Hydralazine HCl [Apresoline -] 25 mg PO TID tablet 11/20/17 Levothyroxine [Synthroid -] 100 mcg PO DAILY@0700 tablet 11/20/17 Loratadine [Claritin -] 10 mg PO DAILY tablet 11/20/17 Metformin Xr [Glucophage Xr -] 1,000 mg PO DAILY@0700 tab.sr.24h 11/20/17 Metoprolol Succinate [Toprol XL -] 100 mg PO DAILY tab.sr.24h 11/20/17 Sacubitril/Valsartan [Entresto 97 mg-103 mg Tablet] 1 tab PO BID tablet
[2017-11-20] MEDS ORDERED: hydrALAZINE HCL 25 MG TABLET (FP) PO SCH (17:26)
[2017-11-20] MEDS ORDERED: ATORVASTATIN CA 10 MG TABLET (FP) PO SCH (17:26)
[2017-11-20] MEDS ORDERED: PT OWN MED DRAWER 7, Y5N ONE (17:36)
[2017-11-20] MEDS ORDERED: hydrALAZINE HCL 25 MG TABLET (FP) PO ONE (17:41)
[2017-11-20] MEDS ORDERED: SACUBITRIL/VALSARTAN 97 MG-103 MG TABLET PO SCH (18:00)
[2017-11-20] MEDS: guaiFENesin 200 MG/10 ML 10 ML UNIT-DOSE CUPS PO PRN (18:30)
[2017-11-20 21:08] VITALS: BP 125/76; PULSE 99; TEMP 98
[2017-11-20] MEDS: LATANOPROST 0.005% OPHTH SOLN 2.5ML BOTTLE OU SCH (21:09)
--- NOTE | 2017-11-20 23:00 | PN ---
Progress Note, Physician Chief Complaint: cough, weakness History of Present Illness: The patient is feeling better since she started the cough medication. She does not complain of wheezes or chest tightness. She feels extremely weak and has difficulty ambulating. - Objective Vital Signs: Vital Signs Temperature 98 F 11/20/17 21:07 Pulse Rate 99 H 11/20/17 21:07 Respiratory Rate 20 11/20/17 21:07 Blood Pressure 125/76 11/20/17 21:07 O2 Sat by Pulse Oximetry (%) 98 11/20/17 09:00 Constitutional: Yes: No Distress, Calm Eyes: Yes: Conjunctiva Clear, EOM Intact HENT: Yes: Atraumatic, Normocephalic Neck: Yes: Supple, Trachea Midline Cardiovascular: Yes: Regular Rate and Rhythm, S1, S2 Respiratory: Yes: Regular, CTA Bilaterally Gastrointestinal: Yes: Normal Bowel Sounds, Soft, Abdomen, Obese. No: Hepatomegaly, Splenomegaly Musculoskeletal: Yes: Muscle Weakness Extremities: No: Calf Tenderness Edema: No Peripheral Pulses WNL: Yes Neurological: Yes: Alert, Oriented Psychiatric: Yes: Alert, Oriented Labs: CBC, BMP 11/18/17 07:30 11/19/17 06:00 INR, PTT INR 1.04 (0.82-1.09) 11/17/17 14:28 Problem List - Problems (1) Weakness generalized Assessment/Plan: transfer to rehabilitation Code(s): R53.1 - WEAKNESS (2) Bronchitis Assessment/Plan: changed on levaquin 500 mg po daily Code(s): J40 - BRONCHITIS, NOT SPECIFIED ACUTE OR CHRONIC (3) Back pain with sciatica Assessment/Plan: refuses Percocet, can use tylenol prn Code(s): M54.30 - SCIATICA, UNSPECIFIED SIDE; M54.9 - DORSALGIA, UNSPECIFIED (4) Hypertension, poor control Assessment/Plan: continue Hydralazine, Toprol, Entresto Code(s): I10 - ESSENTIAL (PRIMARY) HYPERTENSION (5) Hyponatremia Assessment/Plan: monitor level of sodium the hyponatremia is chronic Code(s): E87.1 - HYPO-OSMOLALITY AND HYPONATREMIA (6) Hyperkalemia Assessment/Plan: monitor, repeat CMP in am Code(s): E87.5 - HYPERKALEMIA (7) Osteoarthritis Assessment/Plan: Tylenol Code(s): M19.90 - UNSPECIFIED OSTEOARTHRITIS, UNSPECIFIED SITE
== END 2017-11-20 21:44 ==
LOC: JER 13:05 → JERBED 17:02 → UNDOADMOB 17:02 → INTOOBSV 17:02 → J7W 11-18 15:35 → JERBED 11-18 15:35 → J7W 11-19 16:00
PROVIDERS: ADMIT Internal Medicine; ATTEND Internal Medicine
PROC: 3E013GC Introduction of Other Therapeutic Substance into Subcutaneous Tissue, Percutaneous Approach (ICD-10-PCS; principal; 2017-11-19)
PROC: 3E03329 Introduction of Other Anti-infective into Peripheral Vein, Percutaneous Approach (ICD-10-PCS; 2017-11-19)
DX: M62.81 Muscle weakness (generalized) (principal); J40 Bronchitis, not specified as acute or chronic; I10 Essential (primary) hypertension; E11.9 Type 2 diabetes mellitus without complications; E78.5 Hyperlipidemia, unspecified; E03.9 Hypothyroidism, unspecified; E87.1 Hypo-osmolality and hyponatremia; M54.30 Sciatica, unspecified side; M54.9 Dorsalgia, unspecified; E87.5 Hyperkalemia; M19.90 Unspecified osteoarthritis, unspecified site; Z85.3 Personal history of malignant neoplasm of breast; R26.2 Difficulty in walking, not elsewhere classified; Z99.89 Dependence on other enabling machines and devices; Z79.84 Long term (current) use of oral hypoglycemic drugs; Z90.11 Acquired absence of right breast and nipple; Z79.82 Long term (current) use of aspirin
CPT/HCPCS: 36415; 71045-TC; 80053; 81003; 81015; 82550; 82962; 83735; 83880; 84443; 84484; 85025; 85610; 86850; 86900; 86901; 93005; 93010; 97116-GP; 97161-GP; 99285-25; G0378; J1644

== ENCOUNTER 2019-04-14 11:34 | Emergency (ER) | payer BC | END 2019-04-14 14:51 | disposition home or self-care (01) | LOC: FER 11:34 ==

== ENCOUNTER 2019-04-23 12:41 | Inpatient (IN) | payer BC ==
--- NOTE | 2019-04-23 13:31 | PDOC ---
History of Present Illness - General Chief Complaint: Weakness Stated Complaint: WEAKNESS DECREASED APPETITTE Time Seen by Provider: 04/23/19 12:56 - History of Present Illness Initial Comments: 04/23/19 14:09 88 years old presents emergency Department with extreme weakness Past medical history significant for hypertension hyperlipidemia remote breast cancer osteoarthritis hypothyroidism was recently admitted to the hospital 2 weeks ago for hyponatremia and weakness her Lasix was self discontinued she presented to her doctor's office today and was sent to the ED for likely admission secondary to failure to thrive at home weakness difficulty transferring Symptoms are moderate to severe persistent concent no exacerbating or alleviating factors. Past History - Past Medical History Allergies/Adverse Reactions: Allergies Allergy/AdvReac Type Severity Reaction Status Date / Time No Known Allergies Allergy Verified 04/23/19 12:42 Home Medications: Ambulatory Orders Aspirin [ASA -] 81 mg PO DAILY 04/14/19 Hydralazine HCl 25 mg PO TID 04/14/19 Labetalol HCl [Normodyne -] 100 mg PO BID 04/14/19 Latanoprost/Pf [Latanoprost 0.005% Eye Drop] 7.5 ml OP DAILY 04/14/19 Levothyroxine [Synthroid -] 100 mcg PO DAILY 04/14/19 Metformin HCl [Metformin HCl ER] 1,000 mg PO HS 04/14/19 Sacubitril/Valsartan [Entresto 97 mg-103 mg Tablet] 1 each PO BID 04/14/19 Simvastatin [Zocor -] 10 mg PO HS 04/14/19 Calcium 250Mg/Vit-D 125 Units [Oscal 250 mg+D -] 2 combo PO DAILY 04/23/19 Cyanocobalamin (Vitamin B-12) [Vitamin B-12] 1,000 mcg SL DAILY 04/23/19 Glucos Sul 2Kcl/MSM/Chond/C/Mn [Glucosamine Chondroitin Cap] 1 each PO BID 04/23 Mupirocin Ointment [Bactroban] 1 applic TP BID 04/23/19 [place]-3 Fatty Acids/Fish Oil [Fish Oil 1,000 mg Capsule] 1 each PO BID 04/23/19 Cancer: Yes (LEFT BREAST LUMPECTOMY) COPD: No Diabetes: Yes HTN: Yes Thyroid Disease: Yes Other medical history: SHINGELLES - Suicide/Smoking/Psychosocial Hx Smoking History: Never smoked Have you smoked in the past 12 months: No Number of Cigarettes Smoked Daily: 0 Cigars Per Day: 0 Information on smoking cessation initiated: No Hx Alcohol Use: No Drug/Substance Use Hx: No Substance Use Type: None Hx Substance Use Treatment: No *Physical Exam - Vital Signs Last Vital Signs Temp Pulse Resp BP Pulse Ox 98.1 F 78 16 176/91 H 97 04/23/19 12:42 04/23/19 12:42 04/23/19 12:42 04/23/19 12:42 04/23/19 12:42 Heart Score/ECG Review - ECG Impressions Comment:: 04/23/19 13:36 EKG performed at 1315 demonstrates normal sinus rhythm no ST elevations or T- wave inversions Interpreted by me. ED Treatment Course - LABORATORY CBC & Chemistry Diagram: 04/23/19 13:23 04/23/19 13:23 - RADIOLOGY Radiology Studies Ordered: Category Date Time Status CXRPORT [CHEST X-RAY PORTABLE*] [RAD] Stat Radiology 04/23/19 12:44 Taken Medical Decision Making - Medical Decision Making 04/23/19 18:45 88 years old presents emergency Department with extreme weakness Past medical history significant for hypertension hyperlipidemia remote breast cancer osteoarthritis hypothyroidism was recently admitted to the hospital 2 weeks ago for hyponatremia and weakness her Lasix was self discontinued she presented to her doctor's office today and was sent to the ED for likely admission secondary to failure to thrive at home weakness difficulty transferring Symptoms are moderate to severe persistent concent no exacerbating or alleviating factors. No focal findings on patient's examination. Likely secondary to hyponatremia to decreased PO intake we'll gently hydrate urine electrolytes and osomolarity ordered We'll admit to medicine for further management. *DC/Admit/Observation/Transfer Diagnosis at time of Disposition: Hyponatremia - Discharge Dispostion Condition at time of disposition: Stable Decision to Admit order: Yes - Referrals - Patient Instructions - Post Discharge Activity
[2019-04-23 13:38] LABS: BASO % 0.5 % (0-2.0); HEMATOCRIT 36.2 % (32.4-45.2); HEMOGLOBIN 12.1 GM/dl (10.7-15.3); MCH 29.1 pg (25.7-33.7); MCHC 33.5 g/dl (32.0-36.0); MEAN CELL VOLUME 87.1 fl (80-96); MEAN PLT VOLUME 6.5 fl (7.5-11.1); MONO % 9.9 % (3.8-10.2); NEUT % 74.6 % (42.8-82.8); PLATELET COUNT 410 K/MM3 (134-434); RBC 4.15 M/mm3 (3.60-5.2); RDW 14.4 % (11.6-15.6); WHITE BLOOD COUNT 7.3 K/mm3 (4.0-10.8)
[2019-04-23 13:44] LABS: ALBUMIN 3.6 g/dl (3.4-5.0); BILIRUBIN,TOTAL 0.7 mg/dl (0.2-1); CALCIUM 8.5 mg/dl (8.5-10); CREATININE 0.7 mg/dl (0.55-1.3); MAGNESIUM 1.7 mg/dL (1.8-2.4); PHOSPHOROUS 3.2 mg/dl (2.5-4.9); POTASSIUM 4.1 mmol/L (3.5-5.1); TOT PROT 6.5 g/dl (6.4-8.2)
[2019-04-23] MEDS ORDERED: SODIUM CHLORIDE 0.9% 1000 ML INFUS.BAG IV ONE (15:30)
[2019-04-23] MEDS ORDERED: hydrALAZINE HCL 25 MG TABLET (FP) PO ONE (15:33)
[2019-04-23] MEDS ORDERED: NITROGLYCERIN 2% OINTMENT - 1GM PACKET TD ONE ×2 (16:39→16:53)
[2019-04-23 16:42] VITALS: BMI 35.5
[2019-04-23] MEDS ORDERED: SODIUM CHLORIDE 1,000 ML IV SCH (17:00)
--- NOTE | 2019-04-23 17:07 | HP ---
CHIEF COMPLAINT: anorexia and weakness PCP:Dr. Muniz HISTORY OF PRESENT ILLNESS: This is an 88 year old female who presents to the ER with extreme weakness and anorexia. She has a past medical history significant for hypertension, hyperlipidemia remote breast cancer, osteoarthritis, hypothyroidism and diagnosed with zoster (shingles) on 04/12/2019 and was treated with as per her [employer]. She was recently admitted to the hospital 2 weeks ago for hyponatremia and weakness and lasix was self discontinued. She presented to her doctor's office today and she was sent to the ED for likely admission secondary to failure to thrive at home and weakness with difficulty with ambulation. Upon evaluation in the ER she was found to have a sodium of 126 and normal renal studies. CXR showed cardiomegaly. She is being admitted for further medical management. Recent Travel:denies PAST MEDICAL HISTORY: hypertension hyperlipidemia remote breast cancer osteoarthritis hypothyroidism shingles(active) PAST SURGICAL HISTORY: denies Social History: Smoking:denies Alcohol:denies Drugs: denies Family History: noncontributory Allergies No Known Allergies Allergy (Verified 04/23/19 12:42) HOME MEDICATIONS: Home Medications Medication Instructions Recorded Aspirin [ASA -] 81 mg PO DAILY 04/14/19 Hydralazine HCl 25 mg PO TID 04/14/19 Labetalol HCl [Normodyne -] 100 mg PO BID 04/14/19 Latanoprost/Pf [Latanoprost 0.005% 7.5 ml OP DAILY 04/14/19 Eye Drop] Levothyroxine [Synthroid -] 100 mcg PO DAILY 04/14/19 Metformin HCl [Metformin HCl ER] 1,000 mg PO HS 04/14/19 Sacubitril/Valsartan [Entresto 97 1 each PO BID 04/14/19 mg-103 mg Tablet] Simvastatin [Zocor -] 10 mg PO HS 04/14/19 Calcium 250Mg/Vit-D 125 Units 2 combo PO DAILY 04/23/19 [Oscal 250 mg+D -] Cyanocobalamin (Vitamin B-12) 1,000 mcg SL DAILY 04/23/19 [Vitamin B-12] Glucos Sul 2Kcl/MSM/Chond/C/Mn 1 each PO BID 04/23/19 [Glucosamine Chondroitin Cap] Mupirocin Ointment [Bactroban] 1 applic TP BID 04/23/19 [place]-3 Fatty Acids/Fish Oil [Fish 1 each PO BID 04/23/19 Oil 1,000 mg Capsule] REVIEW OF SYSTEMS CONSTITUTIONAL: Absent: fever, chills, diaphoresis, generalized weakness, malaise, loss of appetite, weight change HEENT: Absent: rhinorrhea, nasal congestion, throat pain, throat swelling, difficulty swallowing, mouth swelling, ear pain, eye pain, visual changes CARDIOVASCULAR: Absent: chest pain, syncope, palpitations, irregular heart rate, lightheadedness , peripheral edema RESPIRATORY: Absent: cough, shortness of breath, dyspnea with exertion, orthopnea, wheezing, stridor, hemoptysis GASTROINTESTINAL: Absent: abdominal pain, abdominal distension, nausea, vomiting, diarrhea, constipation, melena, hematochezia GENITOURINARY: Absent: dysuria, frequency, urgency, hesitancy, hematuria, flank pain, genital pain MUSCULOSKELETAL: Absent: myalgia, arthralgia, joint swelling, back pain, neck pain SKIN: Absent: rash, itching, pallor, rash to right breast with radiation to back present HEMATOLOGIC/IMMUNOLOGIC: Absent: easy bleeding, easy bruising, lymphadenopathy, frequent infections, bruise to right hand present ENDOCRINE: Absent: unexplained weight gain, unexplained weight loss, heat intolerance, cold intolerance NEUROLOGIC: Absent: headache, focal weakness or paresthesias, dizziness, unsteady gait, seizure, mental status changes, bladder or bowel incontinence PSYCHIATRIC: Absent: anxiety, depression, suicidal or homicidal ideation, hallucinations. PHYSICAL EXAMINATION Vital Signs - 24 hr 04/23/19 04/23/19 04/23/19 12:42 15:31 16:00 Temperature 98.1 F 98.9 F Pulse Rate 78 82 Pulse Rate [ 85 Right Radial] Respiratory 16 20 18 Rate Blood Pressure 176/91 H 234/100 H Blood Pressure 203/96 H [Left Arm] O2 Sat by Pulse 97 97 98 Oximetry (%) GENERAL:awake alert and fully oriented no acute distress HEAD: normal EYES: pupils equal, round and reactive to light EARS, NOSE, THROAT: ears normal nares patent oropharynx clear without exudates NECK: no JVD LUNGS: breath sounds clear to auscultation bilaterally no wheezes no crackles no accessory muscle use HEART: regular rate,rhythm, normal S1 and S2 ABDOMEN: soft nontender not distended normoactive bowel sounds MUSCULOSKELETAL: normal range of motion at all joints no bony deformities or tenderness UPPER EXTREMITIES: 2+ pulses, warm well-perfused LOWER EXTREMITIES: 2+ pulses warm 1+lower extremity edema present bilaterally NEUROLOGICAL: normal speech PSYCHIATRIC: cooperative mood appropriate SKIN: warm dry rash present under right breast with radiation to back Laboratory Results - last 24 hr 04/23/19 04/23/19 04/23/19 13:05 13:23 13:23 WBC 7.3 RBC 4.15 Hgb 12.1 Hct 36.2 MCV 87.1 MCH 29.1 MCHC 33.5 RDW 14.4 Plt Count 410 MPV 6.5 L Absolute Neuts (auto) 5.5 Neutrophils % 74.6 Lymphocytes % 14.0 Monocytes % 9.9 Eosinophils % 1.0 Basophils % 0.5 Sodium 126 L Potassium 4.1 Chloride 92 L Carbon Dioxide 25 Anion Gap 9 BUN 11.0 Creatinine 0.7 Est GFR (CKD-EPI)AfAm 89.66 Est GFR (CKD-EPI)NonAf 77.36 Random Glucose 135 H Serum Osmolality Calcium 8.5 Phosphorus 3.2 Magnesium 1.7 L Total Bilirubin 0.7 AST 23 ALT 13 Alkaline Phosphatase 98 Troponin I < 0.03 Total Protein 6.5 Albumin 3.6 04/23/19 13:23 WBC RBC Hgb Hct MCV MCH MCHC RDW Plt Count MPV Absolute Neuts (auto) Neutrophils % Lymphocytes % Monocytes % Eosinophils % Basophils % Sodium Potassium Chloride Carbon Dioxide Anion Gap BUN Creatinine Est GFR (CKD-EPI)AfAm Est GFR (CKD-EPI)NonAf Random Glucose Serum Osmolality 263 L Calcium Phosphorus Magnesium Total Bilirubin AST ALT Alkaline Phosphatase Troponin I Total Protein Albumin ASSESSMENT/PLAN: 88 year old female with a past medical history significant for hypertension, hyperlipidemia remote breast cancer, osteoarthritis, hypothyroidism and diagnosed with shingles on 04/12/2019 and as per her [employer] who presents to the ER with extreme weakness and anorexia. She was admitted to the hospital 2 weeks ago for hyponatremia and weakness and her lasix was self discontinued. She presented to her doctor's office today and she was sent to the ED for likely admission secondary to failure to thrive at home and weakness with difficulty with ambulation. She was found to have hyponatremia. #1 Hyponatremia Symptomatic with anorexia and weakness. creatinine 0.7, albumin 3.6, urine osmolarity low. She was previously on lasix which was discontinued about 2 weeks ago. - IV fluids NS at 75cc/hr initiated - Nephrology- Dr. Smyth consulted #2 Hypertension Uncontrolled -Continue with hydralazine, labatalol and entresto -Regular diet in setting of hyponatremia -Continue to monitor closely #3 Hypothyroidism - Continue with synthroid - Check TSH #4 Zoster(shingles) Currently afebrile, no leukocytosis, reports was seen by [facility] [employer] and treated. - Maintain contact isolation - Infectious Diseases consulted #5 Hypomagnesia repleted -Repeat magnesium level in am #6 Hyperlipidemia - Continue with statin therapy #7 ? CHF Asymptomatic of SOB or orthopnea. CXR with cardiomegaly, on entresto On clinical exam does not appear to have signs of decompensated congestive heart failure, minimal lower extremity noted. Lasix placed on hold about 2 weeks ago in setting of hyponatremia. -Continue to monitor fluid volume status closely as patient is on IV fluids for hyponatremia -Consider checking echocardiogram to evaluate LV function and exclude cardiomyopathy in am and will defer to PMD FEN IVF NS at 75 cc/hr, regular diet, monitor electrolytes closely DVT lovenox 40 mg once daily Visit type - Emergency Visit Emergency Visit: Yes ED Registration Date: 04/23/19 Care time: The patient presented to the Emergency Department on the above date and was hospitalized for further evaluation of their emergent condition. - New Patient This patient is new to me today: Yes Date on this admission: 04/23/19 - Critical Care Critical Care patient: No
[2019-04-23] MEDS ORDERED: MAGNESIUM OXIDE 400 MG TABLET (FP) PO ONE (17:32)
[2019-04-23 17:45] LABS: CREATININE, URINE RANDOM 56.4 mg/dL
[2019-04-23] MEDS: ENOXAPARIN NA (PORCINE) 40 MG/0.4 ML DISP.SYRIN SQ SCH (18:06)
--- NOTE | 2019-04-23 19:26 | CON.ID ---
Consult Referred by:: hospitalist Reason for Consultation:: rash - History of Present Illness Chief Complaint: weakness History of Present Illness: seen in ED on 04/14 for zoster rash prescribed valtrex 1 g tid for 7 days which she completed alert c/o generalized weakness no fevers self d/priyanka lasix at home - History Source History Provided By: Patient, Medical Record Limitations to Obtaining History: No Limitations - Past Medical History Cardio/Vascular: Yes: HTN, Hyperlipdemia Gastrointestinal: Yes: Constipation ...: No Musculoskeletal: Yes: Chronic low back pain, Osteoarthritis Endocrine: Yes: Hypothyroidism, Other (hyponatremia) - Alcohol/Substance Use Hx Alcohol Use: No - Smoking History Smoking history: Never smoked Have you smoked in the past 12 months: No Aproximately how many cigarettes per day: 0 - Social History Usual Living Arrangement: Alone ADL: Independent History of Recent Travel: No Home Medications - Allergies Allergies/Adverse Reactions: Allergies Allergy/AdvReac Type Severity Reaction Status Date / Time No Known Allergies Allergy Verified 04/23/19 12:42 - Home Medications Home Medications: Ambulatory Orders Aspirin [ASA -] 81 mg PO DAILY 04/14/19 Hydralazine HCl 25 mg PO TID 04/14/19 Labetalol HCl [Normodyne -] 100 mg PO BID 04/14/19 Latanoprost/Pf [Latanoprost 0.005% Eye Drop] 7.5 ml OP DAILY 04/14/19 Levothyroxine [Synthroid -] 100 mcg PO DAILY 04/14/19 Metformin HCl [Metformin HCl ER] 1,000 mg PO HS 04/14/19 Sacubitril/Valsartan [Entresto 97 mg-103 mg Tablet] 1 each PO BID 04/14/19 Simvastatin [Zocor -] 10 mg PO HS 04/14/19 Calcium 250Mg/Vit-D 125 Units [Oscal 250 mg+D -] 2 combo PO DAILY 04/23/19 Cyanocobalamin (Vitamin B-12) [Vitamin B-12] 1,000 mcg SL DAILY 04/23/19 Glucos Sul 2Kcl/MSM/Chond/C/Mn [Glucosamine Chondroitin Cap] 1 each PO BID 04/23 Mupirocin Ointment [Bactroban] 1 applic TP BID 04/23/19 [place]-3 Fatty Acids/Fish Oil [Fish Oil 1,000 mg Capsule] 1 each PO BID 04/23/19 Family Disease History - Family Disease History Family History: Denies Review of Systems - Review of Systems Constitutional: reports: No Symptoms. denies: Chills, Fever Eyes: reports: No Symptoms HENT: reports: No Symptoms Neck: reports: No Symptoms Cardiovascular: reports: No Symptoms Respiratory: reports: No Symptoms Integumentary: reports: Rash (dry under right breast) Neurological: reports: No Symptoms Physical Exam Vital Signs: Vital Signs Temperature 98.2 F 04/23/19 18:00 Pulse Rate 88 04/23/19 18:00 Respiratory Rate 20 04/23/19 18:00 Blood Pressure 176/66 H 04/23/19 18:00 O2 Sat by Pulse Oximetry (%) 98 04/23/19 16:00 Constitutional: Yes: Well Nourished, No Distress Eyes: Yes: Conjunctiva Clear, EOM Intact HENT: Yes: Atraumatic, Normocephalic Neck: Yes: Supple, Trachea Midline Cardiovascular: Yes: Regular Rate and Rhythm Respiratory: Yes: Regular, CTA Bilaterally Gastrointestinal: Yes: Normal Bowel Sounds, Soft ...Rectal Exam: Yes: Deferred Integumentary: Yes: Other (dry rash under right breast extending to the back) Neurological: Yes: Alert, Oriented Labs: CBC, BMP 04/23/19 13:23 04/23/19 13:23 Imaging - Results Chest X-ray: Report Reviewed Problem List - Problems (1) Zoster Code(s): B02.9 - ZOSTER WITHOUT COMPLICATIONS Qualifiers: Herpes zoster complications: without complications Qualified Code(s): B02.9 - Zoster without complications (2) Weakness generalized Code(s): R53.1 - WEAKNESS Assessment/Plan resolved zoster s/p valtrex 7 days no need to treat further management per PMD
[2019-04-23] MEDS ORDERED: [UNRECOGNIZED DRUG - OTHER] PO SCH (22:00)
[2019-04-23] MEDS ORDERED: GLUCOS SUL PO SCH (22:00)
[2019-04-23 22:02] LABS: CALCIUM 8.4 mg/dl (8.5-10); CREATININE 0.6 mg/dl (0.55-1.3); POTASSIUM 3.7 mmol/L (3.5-5.1)
[2019-04-23] MEDS: LABETALOL HCL 100 MG TABLET (FP) PO SCH (22:04)
[2019-04-23] MEDS: ATORVASTATIN CA 10 MG TABLET (FP) PO SCH (22:04)
[2019-04-23] MEDS: hydrALAZINE HCL 25 MG TABLET (FP) PO SCH (22:04)
[2019-04-23] MEDS: NYSTATIN POWDER 100,000 UNITS/GM - 15 GM TOPICAL POWDER TP SCH (22:05)
[2019-04-23] MEDS: LATANOPROST 0.005% OPHTH SOLN 2.5ML BOTTLE OU SCH (23:24)
[2019-04-23] MEDS: MUPIROCIN 2% TOPICAL OINTMENT 22 GM TUBE TP SCH (23:25)
[2019-04-23] MEDS: SACUBITRIL/VALSARTAN 97 MG-103 MG TABLET PO SCH (23:25)
[2019-04-23 23:32] LABS: EPITHELIAL CELLS FEW /hpf
[2019-04-24] MEDS: hydrALAZINE HCL 25 MG TABLET (FP) PO SCH ×3 (06:04→21:47)
[2019-04-24] MEDS: LEVOTHYROXINE NA 100 MCG TABLET (FP) PO SCH (06:04)
[2019-04-24 08:25] LABS: HEMATOCRIT 32.1 % (32.4-45.2); HEMOGLOBIN 10.2 GM/dl (10.7-15.3); MCHC 31.9 g/dl (32.0-36.0); MEAN CELL VOLUME 87.7 fl (80-96); MEAN PLT VOLUME 6.7 fl (7.5-11.1); PLATELET COUNT 344 K/MM3 (134-434); RBC 3.66 M/mm3 (3.60-5.2); RDW 14.5 % (11.6-15.6); WHITE BLOOD COUNT 7.1 K/mm3 (4.0-10.8)
[2019-04-24 08:39] LABS: CREATININE 0.6 mg/dl (0.55-1.3); MAGNESIUM 1.7 mg/dL (1.8-2.4)
[2019-04-24] MEDS ORDERED: MAGNESIUM SULF 50% (8.12 MEQ/2 ML-1 GM VIAL) IVPB ONE (08:52)
[2019-04-24] MEDS ORDERED: PT OWN MED DRAWER 7, Y5N ONE ×2 (09:26→21:44)
[2019-04-24] MEDS: ASPIRIN 81 MG CHEWABLE TABLETS PO SCH (09:42)
[2019-04-24] MEDS: LABETALOL HCL 100 MG TABLET (FP) PO SCH ×2 (09:44→21:47)
[2019-04-24] MEDS: CYANOCOBALAMIN 1,000 MCG TABLET (FP) PO SCH (09:44)
[2019-04-24] MEDS: ENOXAPARIN NA (PORCINE) 40 MG/0.4 ML DISP.SYRIN SQ SCH (09:45)
[2019-04-24] MEDS: CALCIUM 250MG/VIT-D 125 UNITS 1 COMBO TABLET PO SCH (09:48)
[2019-04-24] MEDS: SACUBITRIL/VALSARTAN 97 MG-103 MG TABLET PO SCH ×2 (09:49→21:48)
[2019-04-24] MEDS: MUPIROCIN 2% TOPICAL OINTMENT 22 GM TUBE TP SCH ×2 (09:49→21:48)
[2019-04-24] MEDS: NYSTATIN POWDER 100,000 UNITS/GM - 15 GM TOPICAL POWDER TP SCH ×2 (09:51→21:48)
--- NOTE | 2019-04-24 10:22 | PN ---
Physical Exam: SUBJECTIVE: Patient seen and examined at bedside. Feels better than when she first arrived. Feels has more energy, not as weak. Has not been up walking. OBJECTIVE: Vital Signs Period Temp Pulse Resp BP Sys/[place] Pulse Ox Last 24 Hr 98.1 F-99.4 F 78-93 16-20 134-234/40-100 93-98 GENERAL: The patient is awake, alert, and fully oriented, in no acute distress. LUNGS: Breath sounds equal, clear to auscultation bilaterally, no wheezes, no crackles, no accessory muscle use. HEART: Regular rate and rhythm, S1, S2 ABDOMEN: Soft, nontender, nondistended EXTREMITIES: 2+ pulses, warm, well-perfused, no edema, no calf tenderness NEUROLOGICAL: Cranial nerves II through XII grossly intact. Normal speech, gait not observed. Laboratory Results - last 24 hr 04/23/19 04/23/19 04/23/19 13:05 13:23 13:23 WBC 7.3 RBC 4.15 Hgb 12.1 Hct 36.2 MCV 87.1 MCH 29.1 MCHC 33.5 RDW 14.4 Plt Count 410 MPV 6.5 L Absolute Neuts (auto) 5.5 Neutrophils % 74.6 Lymphocytes % 14.0 Monocytes % 9.9 Eosinophils % 1.0 Basophils % 0.5 Sodium 126 L Potassium 4.1 Chloride 92 L Carbon Dioxide 25 Anion Gap 9 BUN 11.0 Creatinine 0.7 Est GFR (CKD-EPI)AfAm 89.66 Est GFR (CKD-EPI)NonAf 77.36 Random Glucose 135 H Serum Osmolality Calcium 8.5 Phosphorus 3.2 Magnesium 1.7 L Total Bilirubin 0.7 AST 23 ALT 13 Alkaline Phosphatase 98 Troponin I < 0.03 Total Protein 6.5 Albumin 3.6 Urine Color Urine Appearance Urine pH Urine Protein Urine Glucose (UA) Urine Ketones Urine Blood Urine Nitrite Urine Bilirubin Urine Urobilinogen Ur Leukocyte Esterase Urine RBC Urine WBC Ur Transition Epith Cell Urine Bacteria Urine Osmolality Ur Random Creatinine Ur Random Sodium 04/23/19 04/23/19 04/23/19 13:23 17:07 17:07 WBC RBC Hgb Hct MCV MCH MCHC RDW Plt Count MPV Absolute Neuts (auto) Neutrophils % Lymphocytes % Monocytes % Eosinophils % Basophils % Sodium Potassium Chloride Carbon Dioxide Anion Gap BUN Creatinine Est GFR (CKD-EPI)AfAm Est GFR (CKD-EPI)NonAf Random Glucose Serum Osmolality 263 L Calcium Phosphorus Magnesium Total Bilirubin AST ALT Alkaline Phosphatase Troponin I Total Protein Albumin Urine Color Yellow Urine Appearance Clear Urine pH 7.0 Urine Protein 1+ H Urine Glucose (UA) Negative Urine Ketones 1+ H Urine Blood Negative Urine Nitrite Negative Urine Bilirubin Negative Urine Urobilinogen 0.2 Ur Leukocyte Esterase Trace H Urine RBC 0-2 Urine WBC 2-5 Ur Transition Epith Cell Few Urine Bacteria Few Urine Osmolality 281 L Ur Random Creatinine 56.4 Ur Random Sodium 62 04/23/19 04/24/19 04/24/19 21:15 06:48 06:48 WBC 7.1 RBC 3.66 Hgb 10.2 L Hct 32.1 L MCV 87.7 MCH 28.0 MCHC 31.9 L RDW 14.5 Plt Count 344 MPV 6.7 L Absolute Neuts (auto) Neutrophils % Lymphocytes % Monocytes % Eosinophils % Basophils % Sodium 124 L 125 L Potassium 3.7 4.0 Chloride 91 L 91 L Carbon Dioxide 25 24 Anion Gap 8 10 BUN 11.0 10.0 Creatinine 0.6 0.6 Est GFR (CKD-EPI)AfAm 94.32 94.32 Est GFR (CKD-EPI)NonAf 81.38 81.38 Random Glucose 125 H 113 H Serum Osmolality Calcium 8.4 L 8.0 L Phosphorus Magnesium 1.7 L Total Bilirubin AST ALT Alkaline Phosphatase Troponin I Total Protein Albumin Urine Color Urine Appearance Urine pH Urine Protein Urine Glucose (UA) Urine Ketones Urine Blood Urine Nitrite Urine Bilirubin Urine Urobilinogen Ur Leukocyte Esterase Urine RBC Urine WBC Ur Transition Epith Cell Urine Bacteria Urine Osmolality Ur Random Creatinine Ur Random Sodium Active Medications Generic Name Dose Route Start Last Admin Trade Name Freq PRN Reason Stop Dose Admin Aspirin 81 mg 04/24/19 10:00 04/24/19 09:42 Asa - PO 81 mg DAILY GIUSEPPE Administration Atorvastatin Calcium 10 mg 04/23/19 22:00 04/23/19 22:04 Lipitor - PO 10 mg HS GIUSEPPE Administration Calcium/Vitamin D 2 tab 04/24/19 10:00 04/24/19 09:48 Oscal 250 Mg+D - PO 2 tab DAILY GIUSEPPE Administration Cyanocobalamin 1,000 mcg 04/24/19 10:00 04/24/19 09:44 Vitamin B12 - PO 1,000 mcg DAILY GIUSEPPE Administration Enoxaparin Sodium 40 mg 04/23/19 17:30 04/24/19 09:45 Lovenox - SQ 40 mg DAILY GIUSEPPE Administration Hydralazine HCl 25 mg 04/23/19 22:00 04/24/19 06:04 Apresoline - PO 25 mg TID GIUSEPPE Administration Labetalol HCl 100 mg 04/23/19 22:00 04/24/19 09:44 Normodyne - PO 100 mg BID GIUSEPPE Administration Latanoprost 1 drop 04/23/19 22:00 04/23/19 23:24 Xalatan 0.005% Eye Drops - OU Not Given HS GIUSEPPE Levothyroxine Sodium 100 mcg 04/24/19 07:00 04/24/19 06:04 Synthroid - PO 100 mcg DAILY@0700 IGUSEPPE Administration Metformin HCl 1,000 mg 04/23/19 17:00 04/23/19 18:07 Glucophage Xr - PO 1,000 mg DAILY@1630 GIUSEPPE Administration Mupirocin 1 applic 04/23/19 22:00 04/24/19 09:49 Bactroban 2% Ointment - TP 1 applic BID GIUSEPPE Administration Non-Formulary Medication 1 each 04/23/19 22:00 Glucos Sul 2kcl/Msm/Chond/C/Mn [Glucosamine Chondroitin Cap] PO BID GIUSEPPE Non-Formulary Medication 1 each 04/23/19 22:00 [place]-3 Fatty Acids/Fish Oil [Fish Oil 1,000 Mg Capsule] PO BID GIUSEPPE Nystatin 1 applic 04/23/19 22:00 04/24/19 09:51 Nystop Powder - TP 1 applic BID GIUSEPPE Administration Sacubitril/Valsartan 1 tab 04/23/19 22:00 04/24/19 09:49 Entresto 97 Mg-103 Mg Tablet PO 1 tab BID GIUSEPPE Administration ASSESSMENT/PLAN 88 year-old female with a PMH significant for HTN, HLD, systolic heart failure, remote breast CA, Type II NIDDM, hypothyroidism and recent herpes zoster infection. Admitted for generalized weakness and hyponatremia. Hyponatremia --chronic issue thought to be due to hypothyroidism and diuretic use --diuretics were stopped ~ two weeks ago, will continue to hold --staff reports drinks "lots of ice water"; fluid restrict 1L Hypothyroidism --TSH pending, continue current dose levothyroxine for now Systolic heart failure, chronic --02/10/17 Echo: LV mildly reduced, EF 45-50%, diastolic function not fully assessed; LAE; trace MR --was on diuretics, stopped ~ 2 weeks ago, appears euvolemic --fluid restrict --continue Entresto Hypertension --BP severely elevated on admission 234/100, better controlled now --continue Entresto, labetolol, hydralazine Hyperlipidemia --continue Lipitor Right lung densities --seen on xray on 04/23: parenchymal v. old rib trauma v. other --CT chest pending Type II IDDM --Novolog sliding scale coverage Herpes zoster --resolved s/p valacyclovir x 7 days Hypomagnesemia --replete FEN Fluids: restrict 1L Electrolytes: replete as indicated Nutrition: diabetic diet DVT prophylaxis: subq lovenox Physical therapy Dispo: continues to require inpatient care. Full code. Visit type - Emergency Visit Emergency Visit: Yes ED Registration Date: 04/23/19 Care time: The patient presented to the Emergency Department on the above date and was hospitalized for further evaluation of their emergent condition. - New Patient This patient is new to me today: Yes Date on this admission: 04/24/19 - Critical Care Critical Care patient: No
[2019-04-24] MEDS ORDERED: ACETAMINOPHEN 325 MG TABLET (FP) PO PRN (10:52)
[2019-04-24] MEDS: LATANOPROST 0.005% OPHTH SOLN 2.5ML BOTTLE OU SCH (12:27)
[2019-04-24] MEDS ORDERED: REFRIGERATED ANITBIOTICS ONE (12:48)
[2019-04-24] MEDS: INSULIN (NOVOLOG) ASPART 100 UNITS/ML 10ML VIAL SQ SCH ×2 (16:42→21:48)
[2019-04-24] MEDS: DOCUSATE SODIUM 100 MG CAPSULE (FP) PO SCH (21:47)
[2019-04-24] MEDS: ATORVASTATIN CA 10 MG TABLET (FP) PO SCH (21:47)
--- NOTE | 2019-04-24 22:18 | CON.NEP ---
Consult Consult Specialty:: Nephrology Referred by:: sonali gann Reason for Consultation:: hyponatremia - History of Present Illness Chief Complaint: weakness History of Present Illness: admitted with gen weakness found to have hyponatremia she had previous episodes of hyponatremia while on a diuretic she has been on a a loop diuretic instead of a thiazide for leg edema and HTN she is s/p a liter of NS but she was seen to be drinking too much water (she c/o thirst, dry mouth, and for her pills) meds reviewed and none of her home meds are likely causes but she says furosemide was one of her meds she also reports poor po intake lately for not feeling well - Past Medical History Cardio/Vascular: Yes: HTN, Hyperlipdemia Gastrointestinal: Yes: Constipation ...: No Musculoskeletal: Yes: Chronic low back pain, Osteoarthritis Endocrine: Yes: Hypothyroidism, Other (hyponatremia) - Alcohol/Substance Use Hx Alcohol Use: No - Smoking History Smoking history: Never smoked Have you smoked in the past 12 months: No Aproximately how many cigarettes per day: 0 - Social History Usual Living Arrangement: Alone ADL: Independent History of Recent Travel: No Home Medications - Allergies Allergies/Adverse Reactions: Allergies Allergy/AdvReac Type Severity Reaction Status Date / Time No Known Allergies Allergy Verified 04/23/19 12:42 - Home Medications Home Medications: Ambulatory Orders Aspirin [ASA -] 81 mg PO DAILY 04/14/19 Hydralazine HCl 25 mg PO TID 04/14/19 Labetalol HCl [Normodyne -] 100 mg PO BID 04/14/19 Latanoprost/Pf [Latanoprost 0.005% Eye Drop] 7.5 ml OP DAILY 04/14/19 Levothyroxine [Synthroid -] 100 mcg PO DAILY 04/14/19 Metformin HCl [Metformin HCl ER] 1,000 mg PO HS 04/14/19 Sacubitril/Valsartan [Entresto 97 mg-103 mg Tablet] 1 each PO BID 04/14/19 Simvastatin [Zocor -] 10 mg PO HS 04/14/19 Calcium 250Mg/Vit-D 125 Units [Oscal 250 mg+D -] 2 combo PO DAILY 04/23/19 Cyanocobalamin (Vitamin B-12) [Vitamin B-12] 1,000 mcg SL DAILY 04/23/19 Glucos Sul 2Kcl/MSM/Chond/C/Mn [Glucosamine Chondroitin Cap] 1 each PO BID 04/23 Mupirocin Ointment [Bactroban] 1 applic TP BID 04/23/19 [place]-3 Fatty Acids/Fish Oil [Fish Oil 1,000 mg Capsule] 1 each PO BID 04/23/19 Nephrology Consult - Height Height: 5 ft 1 in - Weight Weight: 188 lb - BMI Body Mass Index (BMI): 35.5 - Lab Results CBC,BMP: CBC, BMP 04/24/19 06:48 04/24/19 06:48 Anion Gap: Anion Gap Anion Gap 10 MMOL/L (8-16) 04/24/19 06:48 - Physical Examination Vital Signs: Vital Signs Temperature 98.4 F 04/24/19 18:07 Pulse Rate 80 04/24/19 18:07 Respiratory Rate 20 04/24/19 18:07 Blood Pressure 152/54 L 04/24/19 18:07 O2 Sat by Pulse Oximetry (%) 98 04/24/19 20:18 Constitutional: Yes: Well Nourished, No Distress, Calm Eyes: Yes: WNL, Conjunctiva Clear, EOM Intact HENT: Yes: WNL, Atraumatic, Normocephalic Neck: Yes: WNL, Supple, Trachea Midline Cardiovascular: Yes: WNL, Regular Rate and Rhythm Respiratory: Yes: WNL, Regular, CTA Bilaterally Gastrointestinal: Yes: WNL, Normal Bowel Sounds Renal/: Yes: WNL Musculoskeletal: Yes: WNL Extremities: Yes: WNL Edema: No Peripheral Pulses WNL: Yes Integumentary: Yes: WNL Neurological: Yes: WNL Psychiatric: Yes: WNL Assessment/Plan Hyponatremia seems to be from a confluent set of factors recent poor po intake, volume contraction, and diuretic use true loop diuretics less likely a cause of the the hyponatremia Multilple electrolyte abnormalities (low magnesium and low chloride)
[2019-04-25] MEDS: INSULIN (NOVOLOG) ASPART 100 UNITS/ML 10ML VIAL SQ SCH ×4 (06:34→21:24)
[2019-04-25] MEDS: hydrALAZINE HCL 25 MG TABLET (FP) PO SCH ×3 (06:38→21:21)
[2019-04-25] MEDS: LEVOTHYROXINE NA 100 MCG TABLET (FP) PO SCH (06:38)
[2019-04-25] MEDS ORDERED: PT OWN MED DRAWER 7, Y5N ONE ×2 (08:42→21:10)
[2019-04-25] MEDS ORDERED: REFRIGERATED ANITBIOTICS ONE ×2 (08:43→09:35)
[2019-04-25] MEDS: ENOXAPARIN NA (PORCINE) 40 MG/0.4 ML DISP.SYRIN SQ SCH (09:20)
[2019-04-25] MEDS: LATANOPROST 0.005% OPHTH SOLN 2.5ML BOTTLE OU SCH (09:20)
[2019-04-25] MEDS: CYANOCOBALAMIN 1,000 MCG TABLET (FP) PO SCH (09:20)
[2019-04-25] MEDS: ASPIRIN 81 MG CHEWABLE TABLETS PO SCH (09:20)
[2019-04-25] MEDS: LABETALOL HCL 100 MG TABLET (FP) PO SCH ×2 (09:20→21:21)
[2019-04-25] MEDS: SACUBITRIL/VALSARTAN 97 MG-103 MG TABLET PO SCH ×2 (09:22→21:21)
[2019-04-25] MEDS: CALCIUM 250MG/VIT-D 125 UNITS 1 COMBO TABLET PO SCH (09:22)
[2019-04-25] MEDS: MUPIROCIN 2% TOPICAL OINTMENT 22 GM TUBE TP SCH ×2 (09:24→21:23)
[2019-04-25] MEDS: NYSTATIN POWDER 100,000 UNITS/GM - 15 GM TOPICAL POWDER TP SCH ×2 (09:25→21:25)
[2019-04-25 10:49] LABS: EOS % 1.3 % (0-4.5); HEMATOCRIT 31.5 % (32.4-45.2); HEMOGLOBIN 10.4 GM/dL (10.7-15.3); LYMPH % 18.3 % (8-40); MCH 28.5 pg (25.7-33.7); MCHC 33.1 g/dl (32.0-36.0); MEAN CELL VOLUME 86.2 fl (80-96); MEAN PLT VOLUME 6.5 fl (7.5-11.1); MONO % 14.9 % (3.8-10.2); NEUT % 64.5 % (42.8-82.8); PLATELET COUNT 306 K/MM3 (134-434); RBC 3.65 M/mm3 (3.60-5.2); RDW 15.5 % (11.6-15.6); WHITE BLOOD COUNT 5.9 K/mm3 (4.0-10.0)
[2019-04-25 10:55] LABS: URIC ACID 4.3 mg/dL (2.6-7.2)
[2019-04-25 11:25] LABS: ALBUMIN 3.1 g/dl (3.4-5.0); BILIRUBIN,TOTAL 0.4 mg/dL (0.2-1); BLOOD UREA NITROGEN 10.6 mg/dL (7-18); CREATININE 0.7 mg/dL (0.55-1.3); MAGNESIUM 2.5 mg/dL (1.8-2.4); TOT PROT 5.5 g/dl (6.4-8.2)
--- NOTE | 2019-04-25 13:23 | PN ---
Physical Exam: SUBJECTIVE: Patient seen and examined at bedside. OBJECTIVE: Vital Signs Period Temp Pulse Resp BP Sys/Palomo Pulse Ox Last 24 Hr 98.4 F-98.9 F 78-95 19-20 129-184/46-71 95-98 GENERAL: The patient is awake, alert, and fully oriented, in no acute distress. LUNGS: Breath sounds equal, clear to auscultation bilaterally, no wheezes, no crackles, no accessory muscle use. HEART: Regular rate and rhythm, S1, S2 ABDOMEN: Soft, nontender, nondistended EXTREMITIES: 2+ pulses, warm, well-perfused, no edema, no calf tenderness NEUROLOGICAL: Cranial nerves II through XII grossly intact. Normal speech, gait not observed. Laboratory Results - last 24 hr 04/24/19 04/24/19 04/24/19 06:48 16:38 21:39 WBC RBC Hgb Hct MCV MCH MCHC RDW Plt Count MPV Absolute Neuts (auto) Neutrophils % Lymphocytes % Monocytes % Eosinophils % Basophils % Nucleated RBC % Sodium Potassium Chloride Carbon Dioxide Anion Gap BUN Creatinine Est GFR (CKD-EPI)AfAm Est GFR (CKD-EPI)NonAf POC Glucometer 111 120 Random Glucose Uric Acid Calcium Magnesium Total Bilirubin AST ALT Alkaline Phosphatase Total Protein Albumin TSH 1.34 04/25/19 04/25/19 04/25/19 06:10 06:10 06:22 WBC 5.9 RBC 3.65 Hgb 10.4 L Hct 31.5 L MCV 86.2 MCH 28.5 MCHC 33.1 RDW 15.5 Plt Count 306 D MPV 6.5 L Absolute Neuts (auto) 3.8 Neutrophils % 64.5 Lymphocytes % 18.3 Monocytes % 14.9 H Eosinophils % 1.3 Basophils % 1.0 Nucleated RBC % 0 Sodium 129 L Potassium 4.0 Chloride 94 L Carbon Dioxide 27 Anion Gap 8 BUN 10.6 Creatinine 0.7 Est GFR (CKD-EPI)AfAm 89.66 Est GFR (CKD-EPI)NonAf 77.36 POC Glucometer 98 Random Glucose 96 Uric Acid 4.3 Calcium 8.0 L Magnesium 2.5 H Total Bilirubin 0.4 AST 14 L ALT 15 Alkaline Phosphatase 91 Total Protein 5.5 L Albumin 3.1 L TSH 04/25/19 11:37 WBC RBC Hgb Hct MCV MCH MCHC RDW Plt Count MPV Absolute Neuts (auto) Neutrophils % Lymphocytes % Monocytes % Eosinophils % Basophils % Nucleated RBC % Sodium Potassium Chloride Carbon Dioxide Anion Gap BUN Creatinine Est GFR (CKD-EPI)AfAm Est GFR (CKD-EPI)NonAf POC Glucometer 129 Random Glucose Uric Acid Calcium Magnesium Total Bilirubin AST ALT Alkaline Phosphatase Total Protein Albumin TSH Active Medications Generic Name Dose Route Start Last Admin Trade Name Freq PRN Reason Stop Dose Admin Acetaminophen 650 mg 04/24/19 10:52 04/24/19 21:47 Tylenol - PO 650 mg Q6H PRN Administration FEVER Aspirin 81 mg 04/24/19 10:00 04/25/19 09:20 Asa - PO 81 mg DAILY [facility] Administration Atorvastatin Calcium 10 mg 04/23/19 22:00 04/24/19 21:47 Lipitor - PO 10 mg HS [facility] Administration Calcium/Vitamin D 2 tab 04/24/19 10:00 04/25/19 09:22 Oscal 250 Mg+D - PO 2 tab DAILY [facility] Administration Cyanocobalamin 1,000 mcg 04/24/19 10:00 04/25/19 09:20 Vitamin B12 - PO 1,000 mcg DAILY [facility] Administration Docusate Sodium 300 mg 04/24/19 22:00 04/24/19 21:47 Colace - PO 300 mg HS [facility] Administration Enoxaparin Sodium 40 mg 04/23/19 17:30 04/25/19 09:20 Lovenox - SQ 40 mg DAILY [facility] Administration Hydralazine HCl 25 mg 04/23/19 22:00 04/25/19 06:38 Apresoline - PO 25 mg TID [facility] Administration Insulin Aspart 0 units 04/24/19 16:30 04/25/19 11:41 Novolog Vial SQ Not Given ACHS [facility] Protocol Labetalol HCl 100 mg 04/23/19 22:00 04/25/19 09:20 Normodyne - PO 100 mg BID [facility] Administration Latanoprost 1 drop 04/24/19 12:00 04/25/19 09:20 Xalatan 0.005% Eye Drops - OU 1 drop DAILY [facility] Administration Levothyroxine Sodium 100 mcg 04/24/19 07:00 04/25/19 06:38 Synthroid - PO 100 mcg DAILY@0700 [facility] Administration Mupirocin 1 applic 04/23/19 22:00 04/25/19 09:24 Bactroban 2% Ointment - TP 1 applic BID [facility] Administration Non-Formulary Medication 1 each 04/23/19 22:00 [place]-3 Fatty Acids/Fish Oil [Fish Oil 1,000 Mg Capsule] PO BID [facility] Nystatin 1 applic 04/23/19 22:00 04/25/19 09:25 Nystop Powder - TP 1 applic BID [facility] Administration Sacubitril/Valsartan 1 tab 04/23/19 22:00 04/25/19 09:22 Entresto 97 Mg-103 Mg Tablet PO 1 tab BID [facility] Administration ASSESSMENT/PLAN 88 year-old female with a PMH significant for HTN, HLD, systolic heart failure, remote breast CA, Type II NIDDM, hypothyroidism and recent herpes zoster infection. Admitted for generalized weakness and hyponatremia. Hyponatremia --likely multifactorial: diuretics (stopped 2 weeks ago), hypothyroidism, free water intake --Na improved 129 today --continue to fluid restrict Hypothyroidism --TSH wnl, continue current dose levothyroxine Systolic heart failure, chronic --02/10/17 Echo: LV mildly reduced, EF 45-50%, diastolic function not fully assessed; LAE; trace MR --was on diuretics, stopped ~ 2 weeks ago, appears euvolemic --fluid restrict --continue Entresto Hypertension --BP remains elevated --increase hydralazine to TID --continue Entresto, labetolol Hyperlipidemia --continue Lipitor Right lung densities ruled out --CT chest: no evidence of periphral right midlung mass or acute pathology within the chest Type II IDDM --Novolog sliding scale coverage Herpes zoster --resolved s/p valacyclovir x 7 days Hypomagnesemia --repleted FEN Fluids: restrict 1L Electrolytes: replete as indicated Nutrition: diabetic diet DVT prophylaxis: subq lovenox Physical therapy Dispo: continues to require inpatient care. Full code. Visit type - Emergency Visit Emergency Visit: Yes ED Registration Date: 04/23/19 Care time: The patient presented to the Emergency Department on the above date and was hospitalized for further evaluation of their emergent condition. - New Patient This patient is new to me today: No - Critical Care Critical Care patient: No
[2019-04-25] MEDS ORDERED: INSULIN (NOVOLOG) ASPART 100 UNITS/ML 10ML VIAL ONE (16:56)
--- NOTE | 2019-04-25 16:58 | EKG ---
Test Reason : Blood Pressure : / mmHG Vent. Rate : 076 BPM Atrial Rate : 076 BPM P-R Int : 200 ms QRS Dur : 116 ms QT Int : 396 ms P-R-T Axes : 038 -14 -09 degrees QTc Int : 445 ms NORMAL SINUS RHYTHM LEFT VENTRICULAR HYPERTROPHY WITH QRS WIDENING ABNORMAL ECG WHEN COMPARED WITH ECG OF 17-NOV-2017 22:48, NO SIGNIFICANT CHANGE WAS FOUND Confirmed by MD CAT, AMARILIS ([id number]) on 04/25/2019 4:57:46 PM Referred By: LILLI Confirmed By:AMARILIS SHELTON MD
[2019-04-25] MEDS: DOCUSATE SODIUM 100 MG CAPSULE (FP) PO SCH (21:20)
[2019-04-25] MEDS: ATORVASTATIN CA 10 MG TABLET (FP) PO SCH (21:21)
--- NOTE | 2019-04-25 21:56 | PN ---
Progress Note (short form) - Note Progress Note: Hyponatremia multifactorial/dilutional obesity Active Medications Acetaminophen (Tylenol -) 650 mg PO Q6H PRN PRN Reason: FEVER Last Admin: 04/24/19 21:47 Dose: 650 mg Aspirin (Asa -) 81 mg PO DAILY [facility] Last Admin: 04/25/19 09:20 Dose: 81 mg Atorvastatin Calcium (Lipitor -) 10 mg PO HS [facility] Last Admin: 04/25/19 21:21 Dose: 10 mg Calcium/Vitamin D (Oscal 250 Mg+D -) 2 tab PO DAILY [facility] Last Admin: 04/25/19 09:22 Dose: 2 tab Cyanocobalamin (Vitamin B12 -) 1,000 mcg PO DAILY [facility] Last Admin: 04/25/19 09:20 Dose: 1,000 mcg Docusate Sodium (Colace -) 300 mg PO HS [facility] Last Admin: 04/25/19 21:20 Dose: 300 mg Enoxaparin Sodium (Lovenox -) 40 mg SQ DAILY [facility] Last Admin: 04/25/19 09:20 Dose: 40 mg Hydralazine HCl (Apresoline -) 25 mg PO TID [facility] Last Admin: 04/25/19 21:21 Dose: 25 mg Insulin Aspart (Novolog Vial) 0 units SQ ACHS [facility]; Protocol Last Admin: 04/25/19 21:24 Dose: Not Given Labetalol HCl (Normodyne -) 100 mg PO TID [facility] Last Admin: 04/25/19 21:21 Dose: 100 mg Latanoprost (Xalatan 0.005% Eye Drops -) 1 drop OU DAILY [facility] Last Admin: 04/25/19 09:20 Dose: 1 drop Levothyroxine Sodium (Synthroid -) 100 mcg PO DAILY@0700 [facility] Last Admin: 04/25/19 06:38 Dose: 100 mcg Mupirocin (Bactroban 2% Ointment -) 1 applic TP BID [facility] Last Admin: 04/25/19 21:23 Dose: 1 applic Non-Formulary Medication ([place]-3 Fatty Acids/Fish Oil [Fish Oil 1,000 Mg Capsule]) 1 each PO BID [facility] Nystatin (Nystop Powder -) 1 applic TP BID [facility] Last Admin: 04/25/19 21:25 Dose: 1 applic Sacubitril/Valsartan (Entresto 97 Mg-103 Mg Tablet) 1 tab PO BID [facility] Last Admin: 04/25/19 21:21 Dose: 1 tab Last Vital Signs Temp Pulse Resp BP Pulse Ox 98.6 F 79 20 172/88 H 97 04/25/19 20:00 04/25/19 20:00 04/25/19 20:06 04/25/19 20:00 04/25/19 20:06 lab check CBC, BMP 04/25/19 06:10 04/25/19 06:10 IMP- Hyponatremia less severe Na 129 is ok for discharge and follow up outpatient Plan- continue water restriction follow bmp periodically after discharge
--- NOTE | 2019-04-26 05:46 | PN ---
Physical Exam: SUBJECTIVE: Patient seen and examined oob to chair. OBJECTIVE: Vital Signs Period Temp Pulse Resp BP Sys/Palomo Pulse Ox Last 24 Hr 98.6 F-98.8 F 79-84 20-20 129-173/46-88 97 GENERAL: The patient is awake, alert, and fully oriented, in no acute distress. LUNGS: Breath sounds equal, clear to auscultation bilaterally, no wheezes, no crackles, no accessory muscle use. HEART: Regular rate and rhythm, S1, S2 ABDOMEN: Soft, nontender, nondistended EXTREMITIES: 2+ pulses, warm, well-perfused, no edema, no calf tenderness NEUROLOGICAL: Cranial nerves II through XII grossly intact. Normal speech, gait not observed. Laboratory Results - last 24 hr 04/25/19 04/25/19 04/25/19 06:10 06:10 06:22 WBC 5.9 RBC 3.65 Hgb 10.4 L Hct 31.5 L MCV 86.2 MCH 28.5 MCHC 33.1 RDW 15.5 Plt Count 306 D MPV 6.5 L Absolute Neuts (auto) 3.8 Neutrophils % 64.5 Lymphocytes % 18.3 Monocytes % 14.9 H Eosinophils % 1.3 Basophils % 1.0 Nucleated RBC % 0 Sodium 129 L Potassium 4.0 Chloride 94 L Carbon Dioxide 27 Anion Gap 8 BUN 10.6 Creatinine 0.7 Est GFR (CKD-EPI)AfAm 89.66 Est GFR (CKD-EPI)NonAf 77.36 POC Glucometer 98 Random Glucose 96 Uric Acid 4.3 Calcium 8.0 L Magnesium 2.5 H Total Bilirubin 0.4 AST 14 L ALT 15 Alkaline Phosphatase 91 Total Protein 5.5 L Albumin 3.1 L 04/25/19 04/25/19 04/25/19 11:37 16:35 21:00 WBC RBC Hgb Hct MCV MCH MCHC RDW Plt Count MPV Absolute Neuts (auto) Neutrophils % Lymphocytes % Monocytes % Eosinophils % Basophils % Nucleated RBC % Sodium Potassium Chloride Carbon Dioxide Anion Gap BUN Creatinine Est GFR (CKD-EPI)AfAm Est GFR (CKD-EPI)NonAf POC Glucometer 129 152 124 Random Glucose Uric Acid Calcium Magnesium Total Bilirubin AST ALT Alkaline Phosphatase Total Protein Albumin Active Medications Generic Name Dose Route Start Last Admin Trade Name Freq PRN Reason Stop Dose Admin Acetaminophen 650 mg 04/24/19 10:52 04/24/19 21:47 Tylenol - PO 650 mg Q6H PRN Administration FEVER Aspirin 81 mg 04/24/19 10:00 04/25/19 09:20 Asa - PO 81 mg DAILY [facility] Administration Atorvastatin Calcium 10 mg 04/23/19 22:00 04/25/19 21:21 Lipitor - PO 10 mg HS [facility] Administration Calcium/Vitamin D 2 tab 04/24/19 10:00 04/25/19 09:22 Oscal 250 Mg+D - PO 2 tab DAILY [facility] Administration Cyanocobalamin 1,000 mcg 04/24/19 10:00 04/25/19 09:20 Vitamin B12 - PO 1,000 mcg DAILY [facility] Administration Docusate Sodium 300 mg 04/24/19 22:00 04/25/19 21:20 Colace - PO 300 mg HS [facility] Administration Enoxaparin Sodium 40 mg 04/23/19 17:30 04/25/19 09:20 Lovenox - SQ 40 mg DAILY [facility] Administration Hydralazine HCl 25 mg 04/23/19 22:00 04/25/19 21:21 Apresoline - PO 25 mg TID [facility] Administration Insulin Aspart 0 units 04/24/19 16:30 04/25/19 21:24 Novolog Vial SQ Not Given ACHS [facility] Protocol Labetalol HCl 100 mg 04/25/19 22:00 04/25/19 21:21 Normodyne - PO 100 mg TID [facility] Administration Latanoprost 1 drop 04/24/19 12:00 04/25/19 09:20 Xalatan 0.005% Eye Drops - OU 1 drop DAILY [facility] Administration Levothyroxine Sodium 100 mcg 04/24/19 07:00 04/25/19 06:38 Synthroid - PO 100 mcg DAILY@0700 [facility] Administration Mupirocin 1 applic 04/23/19 22:00 04/25/19 21:23 Bactroban 2% Ointment - TP 1 applic BID [facility] Administration Non-Formulary Medication 1 each 04/23/19 22:00 [place]-3 Fatty Acids/Fish Oil [Fish Oil 1,000 Mg Capsule] PO BID [facility] Nystatin 1 applic 04/23/19 22:00 04/25/19 21:25 Nystop Powder - TP 1 applic BID [facility] Administration Sacubitril/Valsartan 1 tab 04/23/19 22:00 04/25/19 21:21 Entresto 97 Mg-103 Mg Tablet PO 1 tab BID [facility] Administration ASSESSMENT/PLAN: 88 year-old female with a PMH significant for HTN, HLD, systolic heart failure, remote breast CA, Type II NIDDM, hypothyroidism and recent herpes zoster infection. Admitted for generalized weakness and hyponatremia. Hyponatremia, chronic --likely multifactorial: diuretics (stopped 2 weeks ago), hypothyroidism, free water intake --continue to fluid restrict Hypothyroidism --TSH wnl, continue current dose levothyroxine Systolic heart failure, chronic --02/10/17 Echo: LV mildly reduced, EF 45-50%, diastolic function not fully assessed; LAE; trace MR --was on diuretics, stopped ~ 2 weeks ago, appears euvolemic --fluid restrict --continue Entresto Hypertension --BP remains elevated --increased hydralazine to TID --continue Entresto, labetolol Hyperlipidemia --continue Lipitor Right lung densities ruled out --CT chest: no evidence of periphral right midlung mass or acute pathology within the chest Type II IDDM --Novolog sliding scale coverage Herpes zoster --resolved s/p valacyclovir x 7 days FEN Fluids: restrict 1L Electrolytes: replete as indicated Nutrition: diabetic diet DVT prophylaxis: subq lovenox Physical therapy Dispo: continues to require inpatient care. Full code. Visit type - Emergency Visit Emergency Visit: Yes ED Registration Date: 04/23/19 Care time: The patient presented to the Emergency Department on the above date and was hospitalized for further evaluation of their emergent condition. - New Patient This patient is new to me today: No - Critical Care Critical Care patient: No
[2019-04-26] MEDS: hydrALAZINE HCL 25 MG TABLET (FP) PO SCH ×3 (06:50→22:17)
[2019-04-26] MEDS: LABETALOL HCL 100 MG TABLET (FP) PO SCH ×3 (06:50→22:18)
[2019-04-26] MEDS: LEVOTHYROXINE NA 100 MCG TABLET (FP) PO SCH (06:50)
[2019-04-26] MEDS: INSULIN (NOVOLOG) ASPART 100 UNITS/ML 10ML VIAL SQ SCH ×4 (06:51→23:22)
[2019-04-26 07:52] LABS: CALCIUM 8.6 mg/dl (8.5-10); CREATININE 0.6 mg/dl (0.55-1.3); POTASSIUM 4.2 mmol/L (3.5-5.1)
[2019-04-26] MEDS ORDERED: PT OWN MED DRAWER 7, Y5N ONE ×3 (08:44→22:12)
[2019-04-26] MEDS: SACUBITRIL/VALSARTAN 97 MG-103 MG TABLET PO SCH ×2 (09:49→22:18)
[2019-04-26] MEDS: ASPIRIN 81 MG CHEWABLE TABLETS PO SCH (09:49)
[2019-04-26] MEDS: CYANOCOBALAMIN 1,000 MCG TABLET (FP) PO SCH (09:51)
[2019-04-26] MEDS: ENOXAPARIN NA (PORCINE) 40 MG/0.4 ML DISP.SYRIN SQ SCH (09:52)
[2019-04-26] MEDS: LATANOPROST 0.005% OPHTH SOLN 2.5ML BOTTLE OU SCH (09:53)
[2019-04-26] MEDS: CALCIUM 250MG/VIT-D 125 UNITS 1 COMBO TABLET PO SCH (09:54)
[2019-04-26] MEDS: NYSTATIN POWDER 100,000 UNITS/GM - 15 GM TOPICAL POWDER TP SCH ×2 (10:20→22:18)
[2019-04-26] MEDS: MUPIROCIN 2% TOPICAL OINTMENT 22 GM TUBE TP SCH ×2 (10:20→22:17)
--- NOTE | 2019-04-26 14:00 | PN ---
Progress Note, Physician History of Present Illness: Pt seen and examined at bedside. She is awake and alert. She denies shortness of breath. - Current Medication List Current Medications: Active Medications Acetaminophen (Tylenol -) 650 mg PO Q6H PRN PRN Reason: FEVER Last Admin: 04/24/19 21:47 Dose: 650 mg Aspirin (Asa -) 81 mg PO DAILY [facility] Last Admin: 04/26/19 09:49 Dose: 81 mg Atorvastatin Calcium (Lipitor -) 10 mg PO HS [facility] Last Admin: 04/25/19 21:21 Dose: 10 mg Calcium/Vitamin D (Oscal 250 Mg+D -) 2 tab PO DAILY [facility] Last Admin: 04/26/19 09:54 Dose: 2 tab Cyanocobalamin (Vitamin B12 -) 1,000 mcg PO DAILY [facility] Last Admin: 04/26/19 09:51 Dose: 1,000 mcg Docusate Sodium (Colace -) 300 mg PO HS [facility] Last Admin: 04/25/19 21:20 Dose: 300 mg Enoxaparin Sodium (Lovenox -) 40 mg SQ DAILY [facility] Last Admin: 04/26/19 09:52 Dose: 40 mg Hydralazine HCl (Apresoline -) 25 mg PO TID [facility] Last Admin: 04/26/19 06:50 Dose: 25 mg Insulin Aspart (Novolog Vial) 0 units SQ ACHS [facility]; Protocol Last Admin: 04/26/19 06:51 Dose: Not Given Labetalol HCl (Normodyne -) 100 mg PO TID [facility] Last Admin: 04/26/19 06:50 Dose: 100 mg Latanoprost (Xalatan 0.005% Eye Drops -) 1 drop OU DAILY [facility] Last Admin: 04/26/19 09:53 Dose: 1 drop Levothyroxine Sodium (Synthroid -) 100 mcg PO DAILY@0700 [facility] Last Admin: 04/26/19 06:50 Dose: 100 mcg Mupirocin (Bactroban 2% Ointment -) 1 applic TP BID [facility] Last Admin: 04/25/19 21:23 Dose: 1 applic Non-Formulary Medication ([place]-3 Fatty Acids/Fish Oil [Fish Oil 1,000 Mg Capsule]) 1 each PO BID [facility] Nystatin (Nystop Powder -) 1 applic TP BID [facility] Last Admin: 04/25/19 21:25 Dose: 1 applic Sacubitril/Valsartan (Entresto 97 Mg-103 Mg Tablet) 1 tab PO BID [facility] Last Admin: 04/26/19 09:49 Dose: 1 tab - Objective Vital Signs: Vital Signs Temperature 98.3 F 04/26/19 06:43 Pulse Rate 79 04/26/19 06:43 Respiratory Rate 20 04/26/19 08:00 Blood Pressure 183/77 H 04/26/19 06:54 O2 Sat by Pulse Oximetry (%) 98 04/26/19 08:00 Constitutional: Yes: Calm Eyes: Yes: Conjunctiva Clear HENT: Yes: Atraumatic Neck: Yes: Supple Cardiovascular: Yes: S1, S2 Respiratory: Yes: CTA Bilaterally Gastrointestinal: Yes: Soft, Abdomen, Obese Genitourinary: Yes: WNL Musculoskeletal: Yes: WNL Edema: No Neurological: Yes: Oriented Psychiatric: Yes: Oriented Labs: CBC, BMP 04/25/19 06:10 04/26/19 07:03 Problem List - Problems (1) Hyponatremia Code(s): E87.1 - HYPO-OSMOLALITY AND HYPONATREMIA (2) Hypertension Code(s): I10 - ESSENTIAL (PRIMARY) HYPERTENSION Assessment/Plan Current Medications Generic Name Dose Route Start Last Admin Trade Name Freq PRN Reason Stop Dose Admin Acetaminophen 650 mg 04/24/19 10:52 04/24/19 21:47 Tylenol - PO 650 mg Q6H PRN Administration FEVER Aspirin 81 mg 04/24/19 10:00 04/26/19 09:49 Asa - PO 81 mg DAILY [facility] Administration Atorvastatin Calcium 10 mg 04/23/19 22:00 04/25/19 21:21 Lipitor - PO 10 mg HS [facility] Administration Calcium/Vitamin D 2 tab 04/24/19 10:00 04/26/19 09:54 Oscal 250 Mg+D - PO 2 tab DAILY [facility] Administration Cyanocobalamin 1,000 mcg 04/24/19 10:00 04/26/19 09:51 Vitamin B12 - PO 1,000 mcg DAILY [facility] Administration Docusate Sodium 300 mg 04/24/19 22:00 04/25/19 21:20 Colace - PO 300 mg HS [facility] Administration Enoxaparin Sodium 40 mg 04/23/19 17:30 04/26/19 09:52 Lovenox - SQ 40 mg DAILY [facility] Administration Hydralazine HCl 25 mg 04/23/19 22:00 04/26/19 06:50 Apresoline - PO 25 mg TID [facility] Administration Insulin Aspart 0 units 04/24/19 16:30 04/26/19 06:51 Novolog Vial SQ Not Given ACHS [facility] Protocol Labetalol HCl 100 mg 04/25/19 22:00 04/26/19 06:50 Normodyne - PO 100 mg TID [facility] Administration Latanoprost 1 drop 04/24/19 12:00 04/26/19 09:53 Xalatan 0.005% Eye Drops - OU 1 drop DAILY [facility] Administration Levothyroxine Sodium 100 mcg 04/24/19 07:00 04/26/19 06:50 Synthroid - PO 100 mcg DAILY@0700 [facility] Administration Mupirocin 1 applic 04/23/19 22:00 04/25/19 21:23 Bactroban 2% Ointment - TP 1 applic BID [facility] Administration Non-Formulary Medication 1 each 04/23/19 22:00 [place]-3 Fatty Acids/Fish Oil [Fish Oil 1,000 Mg Capsule] PO BID [facility] Nystatin 1 applic 04/23/19 22:00 04/25/19 21:25 Nystop Powder - TP 1 applic BID [facility] Administration Sacubitril/Valsartan 1 tab 04/23/19 22:00 04/26/19 09:49 Entresto 97 Mg-103 Mg Tablet PO 1 tab BID [facility] Administration Laboratory Tests 02/09/17 02/10/17 02/11/17 06:00 07:40 10:30 Sodium 129 L 129 L 130 L Urine Osmolality 09/01/17 11/17/17 11/18/17 13:40 14:28 07:30 Sodium 132 L 131 L 134 L Urine Osmolality 11/19/17 04/14/19 04/23/19 06:00 12:06 13:23 Sodium 131 L 123 L 126 L Urine Osmolality 04/23/19 04/23/19 04/24/19 17:07 21:15 06:48 Sodium 124 L 125 L Urine Osmolality 281 L 04/25/19 04/26/19 06:10 07:03 Sodium 129 L 128 L Urine Osmolality Impression 1. Hyponatremia 2. HTN 3. hypothyroidism 4. osteoarthritis 5. chronic back pain 6. hyperlipidemia Plan - cont free water restriction - pt with chronic hyponatremia - she is still at risk to fall - she did not follow in the office after her last hospitalization - hold diuretics Dr Smyth
[2019-04-26] MEDS: DOCUSATE SODIUM 100 MG CAPSULE (FP) PO SCH (22:17)
[2019-04-26] MEDS: ATORVASTATIN CA 10 MG TABLET (FP) PO SCH (22:18)
[2019-04-27] MEDS: LABETALOL HCL 100 MG TABLET (FP) PO SCH ×3 (06:38→21:31)
[2019-04-27] MEDS: LEVOTHYROXINE NA 100 MCG TABLET (FP) PO SCH (06:38)
[2019-04-27] MEDS: hydrALAZINE HCL 25 MG TABLET (FP) PO SCH ×4 (06:38→21:31)
[2019-04-27] MEDS: INSULIN (NOVOLOG) ASPART 100 UNITS/ML 10ML VIAL SQ SCH ×3 (06:42→21:33)
[2019-04-27] MEDS ORDERED: PT OWN MED DRAWER 7, Y5N ONE ×4 (08:33→21:15)
[2019-04-27] MEDS: ASPIRIN 81 MG CHEWABLE TABLETS PO SCH (09:56)
[2019-04-27] MEDS: CYANOCOBALAMIN 1,000 MCG TABLET (FP) PO SCH (09:57)
[2019-04-27] MEDS: CALCIUM 250MG/VIT-D 125 UNITS 1 COMBO TABLET PO SCH (09:57)
[2019-04-27] MEDS: NYSTATIN POWDER 100,000 UNITS/GM - 15 GM TOPICAL POWDER TP SCH ×2 (09:58→21:35)
[2019-04-27] MEDS: LATANOPROST 0.005% OPHTH SOLN 2.5ML BOTTLE OU SCH ×2 (09:58→09:59)
[2019-04-27] MEDS: ENOXAPARIN NA (PORCINE) 40 MG/0.4 ML DISP.SYRIN SQ SCH (09:59)
[2019-04-27] MEDS ORDERED: hydrALAZINE HCL 25 MG TABLET (FP) PO SCH (10:00)
[2019-04-27] MEDS: SACUBITRIL/VALSARTAN 97 MG-103 MG TABLET PO SCH ×2 (11:00→21:32)
--- NOTE | 2019-04-27 11:47 | DS ---
Physical Exam: SUBJECTIVE: Patient seen and examined oob to chair. OBJECTIVE: Vital Signs Period Temp Pulse Resp BP Sys/Palomo Pulse Ox Last 24 Hr 97.7 F-98.9 F 79-86 19-20 168-187/66-69 95-98 PHYSICAL EXAM GENERAL: The patient is awake, alert, and fully oriented, in no acute distress. LUNGS: Breath sounds equal, clear to auscultation bilaterally, no wheezes, no crackles, no accessory muscle use. HEART: Regular rate and rhythm, S1, S2 ABDOMEN: Soft, nontender, nondistended EXTREMITIES: 2+ pulses, warm, well-perfused, no edema, no calf tenderness NEUROLOGICAL: Cranial nerves II through XII grossly intact. Normal speech, gait not observed. LAB CBCD WBC 5.9 K/mm3 (4.0-10.0) 04/25/19 06:10 RBC 3.65 M/mm3 (3.60-5.2) 04/25/19 06:10 Hgb 10.4 GM/dL (10.7-15.3) L 04/25/19 06:10 Hct 31.5 % (32.4-45.2) L 04/25/19 06:10 MCV 86.2 fl (80-96) 04/25/19 06:10 MCHC 33.1 g/dl (32.0-36.0) 04/25/19 06:10 RDW 15.5 % (11.6-15.6) 04/25/19 06:10 Plt Count 306 K/MM3 (134-434) D 04/25/19 06:10 MPV 6.5 fl (7.5-11.1) L 04/25/19 06:10 CMP Sodium 128 mmol/L (136-145) L 04/26/19 07:03 Potassium 4.2 mmol/L (3.5-5.1) 04/26/19 07:03 Chloride 94 mmol/L (98-107) L 04/26/19 07:03 Carbon Dioxide 25 mmol/L (21-32) 04/26/19 07:03 Anion Gap 9 MMOL/L (8-16) 04/26/19 07:03 BUN 11.0 mg/dl (7-18) 04/26/19 07:03 Creatinine 0.6 mg/dl (0.55-1.3) 04/26/19 07:03 Calcium 8.6 mg/dl (8.5-10) 04/26/19 07:03 Total Bilirubin 0.4 mg/dL (0.2-1) 04/25/19 06:10 AST 14 U/L (15-37) L 04/25/19 06:10 ALT 15 U/L (13-61) 04/25/19 06:10 Alkaline Phosphatase 91 U/L (45-117) 04/25/19 06:10 Total Protein 5.5 g/dl (6.4-8.2) L 04/25/19 06:10 Albumin 3.1 g/dl (3.4-5.0) L 04/25/19 06:10 Date of Admission:04/23/19 Date of Discharge: 04/27/19 Pre hospital course 88 year-old female with a PMH significant for HTN, HLD, systolic heart failure, remote breast CA, Type II NIDDM, hypothyroidism and recent herpes zoster infection. Admitted for generalized weakness and hyponatremia. Hospital course Hyponatremia, chronic --likely multifactorial: diuretics (stopped 2 weeks ago), hypothyroidism, free water intake --stablized ~129 Hypothyroidism --TSH wnl, continued levothyroxine Systolic heart failure, chronic --02/10/17 Echo: LV mildly reduced, EF 45-50%, diastolic function not fully assessed; LAE; trace MR --was on diuretics, stopped ~ 2 weeks ago, appears euvolemic --continued Entresto Hypertension --BP remained elevated --increased hydralazine to 50mg TID, discharge on increased dose --continued Entresto, labetolol Hyperlipidemia --continued Lipitor Right lung densities ruled out --CT chest: no evidence of periphral right midlung mass or acute pathology within the chest Type II IDDM --Novolog sliding scale coverage Herpes zoster --resolved s/p valacyclovir x 7 days Minutes to complete discharge: 35 Discharge Summary Reason For Visit: HYPONATREMIA Current Active Problems Hyponatremia (Acute) Condition: Improved - Instructions Diet, Activity, Other Instructions: Due to chronic hyponatremia, patient should be fluid restricted to 1L of fluids per 24 hours. Disposition: [facility] - Home Medications Comprehensive Discharge Medication List: Ambulatory Orders Aspirin [ASA -] 81 mg PO DAILY 04/14/19 Hydralazine HCl 25 mg PO TID 04/14/19 Labetalol HCl [Normodyne -] 100 mg PO BID 04/14/19 Latanoprost/Pf [Latanoprost 0.005% Eye Drop] 7.5 ml OP DAILY 04/14/19 Levothyroxine [Synthroid -] 100 mcg PO DAILY 04/14/19 Metformin HCl [Metformin HCl ER] 1,000 mg PO HS 04/14/19 Sacubitril/Valsartan [Entresto 97 mg-103 mg Tablet] 1 each PO BID 04/14/19 Simvastatin [Zocor -] 10 mg PO HS 04/14/19 Calcium 250Mg/Vit-D 125 Units [Oscal 250 mg+D -] 2 combo PO DAILY 04/23/19 Cyanocobalamin (Vitamin B-12) [Vitamin B-12] 1,000 mcg SL DAILY 04/23/19 Glucos Sul 2Kcl/MSM/Chond/C/Mn [Glucosamine Chondroitin Cap] 1 each PO BID 04/23 Mupirocin Ointment [Bactroban] 1 applic TP BID 04/23/19 [place]-3 Fatty Acids/Fish Oil [Fish Oil 1,000 mg Capsule] 1 each PO BID 04/23/19 This patient is new to me today: No Emergency Visit: Yes ED Registration Date: 04/23/19 Care time: The patient presented to the Emergency Department on the above date and was hospitalized for further evaluation of their emergent condition. Critical Care patient: No - Discharge Referral Referred to [facility] No
[2019-04-27] MEDS: DOCUSATE SODIUM 100 MG CAPSULE (FP) PO SCH (21:31)
[2019-04-27] MEDS: MUPIROCIN 2% TOPICAL OINTMENT 22 GM TUBE TP SCH (21:33)
[2019-04-27] MEDS: ATORVASTATIN CA 10 MG TABLET (FP) PO SCH (21:34)
[2019-04-28] MEDS: hydrALAZINE HCL 25 MG TABLET (FP) PO SCH (06:22)
[2019-04-28] MEDS: LABETALOL HCL 100 MG TABLET (FP) PO SCH (06:23)
[2019-04-28] MEDS: LEVOTHYROXINE NA 100 MCG TABLET (FP) PO SCH (06:23)
[2019-04-28 06:56] VITALS: PULSE 74
[2019-04-28] MEDS: INSULIN (NOVOLOG) ASPART 100 UNITS/ML 10ML VIAL SQ SCH ×2 (07:10→11:30)
[2019-04-28 08:46] VITALS: BP 105/49; TEMP 98.2
[2019-04-28] MEDS: CYANOCOBALAMIN 1,000 MCG TABLET (FP) PO SCH (09:53)
[2019-04-28] MEDS: CALCIUM 250MG/VIT-D 125 UNITS 1 COMBO TABLET PO SCH (09:53)
[2019-04-28] MEDS: SACUBITRIL/VALSARTAN 97 MG-103 MG TABLET PO SCH (09:53)
[2019-04-28] MEDS: ASPIRIN 81 MG CHEWABLE TABLETS PO SCH (09:53)
[2019-04-28] MEDS: ENOXAPARIN NA (PORCINE) 40 MG/0.4 ML DISP.SYRIN SQ SCH (09:54)
[2019-04-28] MEDS: NYSTATIN POWDER 100,000 UNITS/GM - 15 GM TOPICAL POWDER TP SCH (09:56)
[2019-04-28] MEDS: MUPIROCIN 2% TOPICAL OINTMENT 22 GM TUBE TP SCH (09:56)
[2019-04-28] MEDS: LATANOPROST 0.005% OPHTH SOLN 2.5ML BOTTLE OU SCH (09:58)
== END 2019-04-28 14:52 | DRG 641 ==
LOC: FER 12:41 → FM/S 15:12 → UNDOADMIN 15:12
PROVIDERS: ADMIT Internal Medicine; ATTEND Nurse Practitioner Acute Care
DX: E87.1 Hypo-osmolality and hyponatremia (principal); I50.22 Chronic systolic (congestive) heart failure; E03.9 Hypothyroidism, unspecified; I11.0 Hypertensive heart disease with heart failure; E78.5 Hyperlipidemia, unspecified; E11.9 Type 2 diabetes mellitus without complications; B02.9 Zoster without complications; M19.90 Unspecified osteoarthritis, unspecified site; E66.9 Obesity, unspecified; Z68.35 Body mass index [BMI] 35.0-35.9, adult; E83.42 Hypomagnesemia; M54.5 Low back pain
CPT/HCPCS: 36415; 71045-TC-FY; 71250-TC; 80048; 80053; 81003; 81015; 82565; 82962; 83735; 83930; 83935; 84100; 84300; 84443; 84484; 84550; 85025; 85027; 87086; 93005; 97116-GP; 97162-GP; 99284-25; J7030

== ENCOUNTER 2019-07-15 08:54 | Inpatient (IN) | payer BC, OTHER ==
[2019-07-15 09:01] VITALS: BMI 34.0
[2019-07-15 10:54] LABS: BASO % 0.4 % (0-2.0); EOS % 0.2 % (0-4.5); HEMATOCRIT 28.8 % (32.4-45.2); HEMOGLOBIN 9.5 GM/dL (10.7-15.3); LYMPH % 4.5 % (8-40); MCH 28.6 pg (25.7-33.7); MCHC 33.1 g/dl (32.0-36.0); MEAN CELL VOLUME 86.3 fl (80-96); MEAN PLT VOLUME 6.7 fl (7.5-11.1); MONO % 7.5 % (3.8-10.2); NEUT % 87.4 % (42.8-82.8); PLATELET COUNT 476 K/MM3 (134-434); RBC 3.33 M/mm3 (3.60-5.2); RDW 16.8 % (11.6-15.6); WHITE BLOOD COUNT 12.9 K/mm3 (4.0-10.0)
[2019-07-15 11:10] LABS: INR 1.26 (0.83-1.09); PROTHROMBIN TIME (PATIENT) 14.9 SEC (9.7-13.0)
[2019-07-15 11:13] LABS: ACTIVATED PTT 30.4 SECONDS (25.2-36.5)
[2019-07-15 11:15] LABS: BILIRUBIN,TOTAL 0.6 mg/dL (0.2-1); BLOOD UREA NITROGEN 9.1 mg/dL (7-18); CALCIUM 7.7 mg/dL (8.5-10.1); MAGNESIUM 1.4 mg/dL (1.8-2.4); POTASSIUM 3.4 mmol/L (3.5-5.1); TOT PROT 5.1 g/dl (6.4-8.2)
[2019-07-15] MEDS ORDERED: MAGNESIUM SULF 50% (8.12 MEQ/2 ML-1 GM VIAL) IVPB ONE (11:17)
[2019-07-15] MEDS ORDERED: KCL 10 MEQ IVPB 10 MEQ/100 ML INFUS.BAG IVPB ONE (11:31)
[2019-07-15] MEDS ORDERED: MAGNESIUM 1GM/D5W - 2 GM/200 ML IVPB IVPB ONE (11:31)
[2019-07-15] MEDS ORDERED: SODIUM CHLORIDE 1,000 ML IV STA (11:59)
[2019-07-15] MEDS ORDERED: SODIUM CHLORIDE 0.9% 1000 ML INFUS.BAG IV ONE (12:09)
[2019-07-15] MEDS ORDERED: CEFTRIAXONE 1,000 MG in DEXTROSE 5%-WATER - 50 ML IVPB ONE (12:10)
--- NOTE | 2019-07-15 12:15 | CON.CARD ---
Consult Consult Specialty:: Cardiology Referred by:: Trish Muniz MD Reason for Consultation:: Cardiomyopathy, demand ischemia - History of Present Illness Chief Complaint: Weakness and fatigue History of Present Illness: The patient is an 88 year old female hx breast cancer status post right-sided mastectomy, hypertension, diabetes, hyperlipidemia, hypothyroidism, zoster, cardiomyopathy last seen in office 04/27/2016 referred to the emergency department by her PCP Cristy after being evaluated yesterday for general malaise, fever, weakness and fatigue no longer able to ambulate with walker assistance referable to UTI with foul smelling, cloudy urine and 2 weeks of diarrhea. She denies chest pain, dyspnea, near or true syncope, palpitations, orthopnea, PND or LE edema. - History Source History Provided By: Patient Limitations to Obtaining History: No Limitations - Past Medical History Cardio/Vascular: Yes: HTN, Hyperlipdemia Gastrointestinal: Yes: Constipation Musculoskeletal: Yes: Chronic low back pain, Osteoarthritis Endocrine: Yes: Hypothyroidism, Other (hyponatremia) - Alcohol/Substance Use Hx Alcohol Use: No - Smoking History Smoking history: Never smoked Have you smoked in the past 12 months: No Aproximately how many cigarettes per day: 0 - Social History Usual Living Arrangement: Alone ADL: Independent History of Recent Travel: No Home Medications - Allergies Allergies/Adverse Reactions: Allergies Allergy/AdvReac Type Severity Reaction Status Date / Time No Known Allergies Allergy Verified 04/23/19 12:42 - Home Medications Home Medications: Ambulatory Orders Labetalol HCl [Normodyne -] 100 mg PO BID 04/14/19 Latanoprost/Pf [Latanoprost 0.005% Eye Drop] 7.5 ml OP DAILY 04/14/19 Levothyroxine [Synthroid -] 100 mcg PO DAILY 04/14/19 Metformin HCl [Metformin HCl ER] 1,000 mg PO HS 04/14/19 Sacubitril/Valsartan [Entresto 97 mg-103 mg Tablet] 1 each PO BID 04/14/19 Simvastatin [Zocor -] 10 mg PO HS 04/14/19 hydrALAZINE HCL [Apresoline -] 25 mg PO TID 07/15/19 Review of Systems - Review of Systems Constitutional: reports: Lethargy, Loss of Appetite, Weakness Vital Signs: Vital Signs Temperature 101.4 F H 07/15/19 10:54 Pulse Rate 106 H 07/15/19 08:59 Respiratory Rate 18 07/15/19 08:59 Blood Pressure 120/53 L 07/15/19 08:59 O2 Sat by Pulse Oximetry (%) 97 07/15/19 08:59 Constitutional: Yes: No Distress, Calm Neck: Yes: Supple Respiratory: Yes: Regular, CTA Bilaterally Gastrointestinal: Yes: Normal Bowel Sounds, Soft Cardiovascular: Yes: Regular Rate and Rhythm JVD: No Carotid Bruit: No Heart Sounds: Yes: S1, S2 Edema: No - Other Data Labs, Other Data: CBC, BMP 07/15/19 09:16 07/15/19 09:16 INR, PTT INR 1.26 (0.83-1.09) H 07/15/19 09:16 Troponin, BNP 07/15/19 09:16 Troponin I 1.06 H* Troponin, BNP 07/15/19 09:16 Troponin I 1.06 H* NSR @ 97 anterolateral TWI c/w previous 04/23/2017 TWI now seen Ejection Fraction %: LVEF < 40 % Imaging - Results Chest X-ray: Report Reviewed (NAD) Problem List - Problems (1) Hyperlipidemia associated with type 2 diabetes mellitus Code(s): E11.69 - TYPE 2 DIABETES MELLITUS WITH OTHER SPECIFIED COMPLICATION; E78.5 - HYPERLIPIDEMIA, UNSPECIFIED (2) Demand ischemia Code(s): I24.8 - OTHER FORMS OF ACUTE ISCHEMIC HEART DISEASE (3) Systolic dysfunction without heart failure Code(s): I51.89 - OTHER ILL-DEFINED HEART DISEASES (4) Hypertension Code(s): I10 - ESSENTIAL (PRIMARY) HYPERTENSION Qualifiers: Hypertension type: essential hypertension Qualified Code(s): I10 - Essential (primary) hypertension (5) UTI (urinary tract infection) Code(s): N39.0 - URINARY TRACT INFECTION, SITE NOT SPECIFIED Qualifiers: Urinary tract infection type: site unspecified Hematuria presence: without hematuria Qualified Code(s): N39.0 - Urinary tract infection, site not specified (6) Hypothyroidism Code(s): E03.9 - HYPOTHYROIDISM, UNSPECIFIED Qualifiers: Hypothyroidism type: unspecified Qualified Code(s): E03.9 - Hypothyroidism , unspecified Assessment/Plan 02/10/2017 Echo: Severe dilated bordeline cLVH, mild decreased LVEF 45-50%, severe LAE, tr MR 1. Failure to thrive referable to UTI 2. LV systolic dysfunction with subendocardial ischemia 3. Hypothyroidism 4. Hyperlipidemia 5. Type 2 DM with microalbuminuria 6. Hypertensive heart disease 7. Hypokalemia P:1. Empiric abx per C&S, replete K 2. Continue ASA 81 qd, labetolol 100 bid, Entresto 24/26 bid, Lipitor 10 qhs, as hemodynamics tolerate, wean hydralazine 3. Echo to assess ventricular and valve fxn, trend trops to document peak 4. Thank you for consultative opportunity
[2019-07-15] MEDS ORDERED: CEFTRIAXONE 1 GM/50 ML BAG ONE (12:21)
--- NOTE | 2019-07-15 12:23 | EKG ---
Test Reason : Blood Pressure : / mmHG Vent. Rate : 099 BPM Atrial Rate : 099 BPM P-R Int : 144 ms QRS Dur : 106 ms QT Int : 446 ms P-R-T Axes : 000 -02 167 degrees QTc Int : 572 ms NORMAL SINUS RHYTHM PROLONGED QT ABNORMAL ECG WHEN COMPARED WITH ECG OF 23-APR-2019 13:15, ST NOW DEPRESSED IN ANTEROLATERAL LEADS T WAVE INVERSION NO LONGER EVIDENT IN INFERIOR LEADS T WAVE INVERSION NOW EVIDENT IN ANTEROLATERAL LEADS QT HAS LENGTHENED Confirmed by BENJAMIN BOSWELL MD ([id number]) on 07/15/2019 12:23:18 PM Referred By: Confirmed By:BENJAMIN BOSWELL MD
[2019-07-15 12:57] LABS: EPI CELLS 2.8 /HPF (0-5/HPF); HYALINE CASTS 20 /lpf (0-8); PH,URINE 5.5 (5.0-8.0); URINE APPEARANCE TURBID; URINE BACTERIA 7894.3 /hpf (NEGATIVE); URINE BILIRUBIN NEGATIVE (NEGATIVE); URINE COLOR YELLOW; URINE GLUCOSE (UA) NEGATIVE (NEGATIVE); URINE KETONE TRACE (NEGATIVE); URINE LEUK ESTERASE 3+ (NEGATIVE); URINE NITRITE NEGATIVE (NEGATIVE); URINE PROTEIN 2+ (NEGATIVE); URINE UROBILINOGEN 0.2 mg/dL (0.2-1.0); URINE WBC 1306 /hpf (0-5)
--- NOTE | 2019-07-15 12:58 | PDOC ---
Documentation entered by Tiana Gibbons SCRIBE, acting as scribe for Dai Kowalski MD. Dai Kowalski MD: This documentation has been prepared by the Shai panchal Sammi, SCRIBE, under my direction and personally reviewed by me in its entirety. I confirm that the documentation accurately reflects all work, treatment, procedures, and medical decision making performed by me. History of Present Illness - General Chief Complaint: Weakness Stated Complaint: DIARRHEA/URINARY PROBLEM/WEAKNESS Time Seen by Provider: 07/15/19 09:26 - History of Present Illness Initial Comments: 07/15/19 09:58 The patient is an 88 year old female hx breast cancer status post right-sided mastectomy, hypertension, diabetes, hyperlipidemia, hypothyroidism who was sent to the emergency department by her PCP Cristy after being evaluated yesterday for general malaise. The patient presents for evaluation of anemia, UTI, and sodium/potassium levels as per note from PCP. Patient's critical care nurse, son-in-law, at bedside reports [facility], the patient switched to correction care where she experienced a decline in ability to perform activities of daily living on her own. He notes the patient was able to ambulate with walker on her own and has not been able to due to increased weakness. She has since noticed increased tiredness, foul smelling, cloudy urine and 2 weeks of diarrhea. Of note, the patient reports terminating her sodium pill on her own as she felt it was "doing more harm than good" Denies CP, SOB, dizziness, focal weakness/numbness, abd pain, LE edema PCP: Cristy Past History - Past Medical History Allergies/Adverse Reactions: Allergies Allergy/AdvReac Type Severity Reaction Status Date / Time No Known Allergies Allergy Verified 04/23/19 12:42 Home Medications: Ambulatory Orders Labetalol HCl [Normodyne -] 100 mg PO BID 04/14/19 Latanoprost/Pf [Latanoprost 0.005% Eye Drop] 7.5 ml OP DAILY 04/14/19 Levothyroxine [Synthroid -] 100 mcg PO DAILY 04/14/19 Metformin HCl [Metformin HCl ER] 1,000 mg PO HS 04/14/19 Sacubitril/Valsartan [Entresto 97 mg-103 mg Tablet] 1 each PO BID 04/14/19 Simvastatin [Zocor -] 10 mg PO HS 04/14/19 hydrALAZINE HCL [Apresoline -] 25 mg PO TID 07/15/19 Cancer: Yes (LEFT BREAST LUMPECTOMY) COPD: No Diabetes: Yes HTN: Yes Thyroid Disease: Yes - Suicide/Smoking/Psychosocial Hx Smoking History: Never smoked Have you smoked in the past 12 months: No Number of Cigarettes Smoked Daily: 0 Cigars Per Day: 0 Information on smoking cessation initiated: No Hx Alcohol Use: No Drug/Substance Use Hx: No Substance Use Type: None Hx Substance Use Treatment: No Review of Systems - Review of Systems Comments:: 07/15/19 10:09 GENERAL/CONSTITUTIONAL: (+)weakness (+)general malaise. No fever or chills. HEAD, EYES, EARS, NOSE AND THROAT: No change in vision. No ear pain or discharge. No sore throat. GASTROINTESTINAL: (+) diarrhea. No nausea, vomiting, or constipation. GENITOURINARY: (+)foul smelling, cloudy urine. CARDIOVASCULAR: No chest pain or shortness of breath. RESPIRATORY: No cough, wheezing, or hemoptysis. MUSCULOSKELETAL: No joint or muscle swelling or pain. No neck or back pain. SKIN: No rash NEUROLOGIC: No headache, vertigo, loss of consciousness, or change in strength/ sensation. *Physical Exam - Vital Signs Last Vital Signs Temp Pulse Resp BP Pulse Ox 99.7 F H 106 H 18 120/53 L 97 07/15/19 08:59 07/15/19 08:59 07/15/19 08:59 07/15/19 08:59 07/15/19 08:59 - Physical Exam Comments: 07/15/19 12:51 GENERAL: Awake, alert, and fully oriented, in no acute distress. Pale appearing. EYES: PERRLA, EOMI, sclera anicteric, conjunctiva clear ENT: Oropharynx clear without exudates. Moist mucosa NECK: Normal ROM, supple, no lymphadenopathy, JVD, or masses LUNGS: Breath sounds equal, clear to auscultation bilaterally. No wheezes, and no crackles HEART: Regular rate and rhythm, normal S1 and S2, no murmurs, rubs or gallops ABDOMEN: Soft, nontender, normoactive bowel sounds. No guarding, no rebound. No masses EXTREMITIES: Normal range of motion, no edema. No cords, erythema, or tenderness. 2+ peripheral pulses x4 NEUROLOGICAL: Normal speech, cranial nerves intact,5/5 strength in all 4 extremities, normal sensation to light touch in all 4 extremities, normal cerebellar exam, normal tone SKIN: Warm, Dry, normal turgor, no rashes or lesions noted. Heart Score/ECG Review #1 07/15/19 12:52 EKG read and int by me: NSR, rate 97, normal axis and intervals. TWI V4-V6, comapred to April 2019, TWI are new ED Treatment Course - LABORATORY CBC & Chemistry Diagram: 07/15/19 09:16 07/15/19 09:16 - RADIOLOGY Radiology Studies Ordered: Category Date Time Status CHEST X-RAY PORTABLE* [RAD] Stat Radiology 07/15/19 09:51 Ordered Medical Decision Making - Critical Care Time Total Critical Care Time (minutes): 30 Critical Care Statement: The care of this patient involved high complexity decision making to prevent further life threatening deterioration of the patient 's condition and/or to evaluate & treat vital organ system(s) failure or risk of failure. - Medical Decision Making 07/15/19 12:56 88yo F presents to the ED with generalized weakness, concern for electrolyte abnormalities, cloudy urine Vitals with rectal fever, tachycardia Labs remarkable for trop 1.06, EKG with new TWI laterally Case discussed with Dr. Waldrop who has evaluated pt, likely trop leak 2/2 demand from infection UA appears very cloudy, pt covered with ceftriaxone Dr. Waldrop recommends against ASA as this is likely not primary cardiac event Case discussed with Dr. Muniz, pt accepted for admission Case discussed in detail with admitting physician including history, physical exam and ancillary studies. Admitting physician has assumed care for the patient, will follow all pending diagnostics and will complete the evaluation and treatment. *DC/Admit/Observation/Transfer Diagnosis at time of Disposition: Weakness generalized - Discharge Dispostion Condition at time of disposition: Stable Decision to Admit order: Yes - Referrals - Patient Instructions - Post Discharge Activity - Attestations Physician Attestion: 07/15/19 12:12 I, Dr. Dai Kowalski MD, attest that this document has been prepared under my direction and personally reviewed by me in its entirety. I further attest, that it accurately reflects all work, treatment, procedures and medical decision -making performed by me.
[2019-07-15 13:26] LABS: URINE RBC 2 /hpf (0-4)
[2019-07-15] MEDS: KCL 10 MEQ IVPB 10 MEQ/100 ML INFUS.BAG IVPB SCH ×2 (13:28→16:01)
--- NOTE | 2019-07-15 16:14 | ECHO ---
Name: GERALDO FRENCH Exam:Adult Echocardiogram Study Date: 07/15/2019 02:26 PM Age: 88 yrs Reason For Study: ASSESS LVF Height: 61 in Weight: 180 lb BSA: 1.8 m2 MMode/2D Measurements & Calculations IVSd: 1.0 cm Ao root diam: 2.9 cm LVIDd: 4.2 cm LVIDs: 2.8 cm LVPWd: 1.0 cm EDV(Teich): 80.8 ml LVOT diam: 2.1 cm ESV(Teich): 28.8 ml Doppler Measurements & Calculations MV E max christiano: 103.2 cm/sec Ao V2 max: 145.0 cm/sec MV A max christiano: 50.8 cm/sec Ao max P.4 mmHg MV E/A: 2.0 Ao V2 mean: 93.9 cm/sec MV dec time: 0.17 sec Ao mean P.2 mmHg Ao V2 VTI: 23.8 cm BETTINA(I,D): 2.8 cm2 BETTINA(V,D): 2.6 cm2 LV V1 max P.7 mmHg MR max christiano: 194.3 cm/sec LV V1 mean P.7 mmHg MR max P.1 mmHg LV V1 max: 108.1 cm/sec LV V1 mean: 76.2 cm/sec LV V1 VTI: 18.8 cm SV(LVOT): 65.5 ml TR max christiano: 130.7 cm/sec TR max P.1 mmHg Med Peak E' Christiano: 5.4 cm/sec Med E/e': 19.2 Lat Peak E' Christiano: 11.7 cm/sec Lat E/e': 8.8 Procedure A complete two-dimensional transthoracic echocardiogram was performed (2D, M-mode, Doppler and color flow Doppler). The study was technically difficult with many images being suboptimal in quality. Left Ventricle The left ventricular size, thickness and function are normal. The left ventricular ejection fraction is normal. Ejection Fraction = 60-65%. Regional wall motion abnormalities cannot be excluded due to limi burak visualization. Right Ventricle The right ventricle is not well visualized. Atria The left atrial size is normal. Right atrium not well visualized. Mitral Valve There is no mitral regurgitation noted. Tricuspid Valve There is trace tricuspid regurgitation. There was insufficient TR detected to calculate RV systolic p ressure. Aortic Valve No hemodynamically significant valvular aortic stenosis. No aortic regurgitation is present. Pulmonic Valve There is no pulmonic valvular regurgitation. Great Vessels The aortic root is normal size. Pericardium/Pleura There is no pericardial effusion. Interpretation Summary The study was technically difficult with many images being suboptimal in quality. The left ventricular size, thickness and function are normal The right ventricle is not well visualized. There is trace tricuspid regurgitation. MD Kurtis Tomas 07/15/2019 04:13 PM
[2019-07-15] MEDS ORDERED: hydrALAZINE HCL 10 MG TABLET PO ONE (17:04)
[2019-07-15] MEDS ORDERED: ACETAMINOPHEN 500 MG TABLET (FP) PO ONE (17:11)
[2019-07-15] MEDS ORDERED: ACETAMINOPHEN 500 MG TABLET (FP) PO PRN (17:12)
[2019-07-15] MEDS ORDERED: POTASSIUM CHLORIDE TABS 20 MEQ TABLET.ER (FP) PO ONE (17:15)
[2019-07-15] MEDS: D5-1/2NS+20 MEQ KCL - 20 MEQ/1,000 ML INFUS.BAG IV SCH (17:45)
--- NOTE | 2019-07-15 21:19 | HP ---
Admitting History and Physical - Admission Chief Complaint: weakness, diarrhea History of Present Illness: 88 yo female with PMH of CAD HTN ,breast cancer, DM type 2 was sent from my office for complaints of weakness frequent normally colored loose stools for approximately 2 weeks. Patient's appetite has been very poor lately. She denies abdominal pain, vomiting, chest pain. Patient was recently discharged from [facility]. History Source: Patient, Family Member - Past Medical History Cardiovascular: Yes: HTN, Hyperlipdemia Heme/Onc: Yes: Cancer (right breast cancer), Other (breast cancer) Musculoskeletal: Yes: Chronic low back pain, Osteoarthritis Endocrine: Yes: Hypothyroidism, Other (hyponatremia) - Advance Directives Advance Directives: Yes: Health Care Proxy - Smoking History Smoking history: Never smoked Have you smoked in the past 12 months: No Aproximately how many cigarettes per day: 0 - Alcohol/Substance Use Hx Alcohol Use: No - Social History ADL: Independent History of Recent Travel: No Home Medications - Allergies Allergies/Adverse Reactions: Allergies Allergy/AdvReac Type Severity Reaction Status Date / Time No Known Allergies Allergy Verified 04/23/19 12:42 - Home Medications Home Medications: Ambulatory Orders Labetalol HCl [Normodyne -] 100 mg PO BID 04/14/19 Latanoprost/Pf [Latanoprost 0.005% Eye Drop] 7.5 ml OP DAILY 04/14/19 Levothyroxine [Synthroid -] 100 mcg PO DAILY 04/14/19 Metformin HCl [Metformin HCl ER] 1,000 mg PO HS 04/14/19 Sacubitril/Valsartan [Entresto 97 mg-103 mg Tablet] 1 each PO BID 04/14/19 Simvastatin [Zocor -] 10 mg PO HS 04/14/19 hydrALAZINE HCL [Apresoline -] 25 mg PO TID 07/15/19 Review of Systems - Review of Systems Constitutional: reports: Loss of Appetite, Weakness Eyes: reports: No Symptoms HENT: reports: No Symptoms Neck: reports: No Symptoms Cardiovascular: reports: No Symptoms Respiratory: reports: No Symptoms Gastrointestinal: reports: Diarrhea. denies: Abdominal Pain, Bloating, Melena, Nausea, Vomiting Genitourinary: reports: No Symptoms Breasts: reports: No Symptoms Reported Musculoskeletal: reports: No Symptoms Integumentary: reports: No Symptoms Neurological: reports: No Symptoms Endocrine: reports: No Symptoms Hematology/Lymphatic: reports: No Symptoms Psychiatric: reports: Anxiety Physical Examination Vital Signs: Vital Signs Temperature 98.8 F 07/15/19 20:31 Pulse Rate 99 H 07/15/19 20:31 Respiratory Rate 20 07/15/19 20:31 Blood Pressure 102/50 L 07/15/19 20:31 O2 Sat by Pulse Oximetry (%) 97 07/15/19 20:30 Constitutional: Yes: Well Nourished, Calm HENT: Yes: Atraumatic, Normocephalic, Pharyngeal Erythema, Rhinnorhea Neck: Yes: Trachea Midline Gastrointestinal: Yes: Normal Bowel Sounds, Soft, Abdomen, Obese, Hemorrhoids. No: Distention, Splenomegaly ...Rectal Exam: Yes: Deferred Renal/: Yes: WNL Musculoskeletal: Yes: Joint Stiffness (ls spine and knees), Muscle Weakness Extremities: No: Calf Tenderness Edema: No Peripheral Pulses WNL: Yes Integumentary: Yes: WNL Neurological: Yes: Alert, Oriented Psychiatric: Yes: Alert, Oriented Labs: CBC, BMP 07/15/19 09:16 07/15/19 09:16 Imaging - Results Chest X-ray: Other (read by me: cardiomegaly, no pleural effusio, no infiltrate, ) Problem List - Problems (1) Demand ischemia Assessment/Plan: ASA cardia enzymes, EKG serially Code(s): I24.8 - OTHER FORMS OF ACUTE ISCHEMIC HEART DISEASE (2) UTI (urinary tract infection) Assessment/Plan: urine cultures pending Ceftriaxone 1 gm iv daily Tylnol for fever Code(s): N39.0 - URINARY TRACT INFECTION, SITE NOT SPECIFIED Qualifiers: Urinary tract infection type: site unspecified Hematuria presence: without hematuria Qualified Code(s): N39.0 - Urinary tract infection, site not specified (3) Diarrhea Assessment/Plan: pateint presented to ER with complaints of diarrhea but since admission she had no bowel movement stool for C difficile to be collected dues to recent admission to rehab Code(s): R19.7 - DIARRHEA, UNSPECIFIED (4) Weakness generalized Code(s): R53.1 - WEAKNESS (5) Diabetes mellitus Code(s): E11.9 - TYPE 2 DIABETES 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 Qualifiers: Diabetes mellitus type: type 2 Diabetes mellitus complication status: without complication (6) Diabetes mellitus Code(s): E11.9 - TYPE 2 DIABETES 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 (7) Hypertension Assessment/Plan: continue LAbetalol, Dentresto, Hydralazine Code(s): I10 - ESSENTIAL (PRIMARY) HYPERTENSION Qualifiers: Hypertension type: essential hypertension Qualified Code(s): I10 - Essential (primary) hypertension (8) Hypothyroidism Assessment/Plan: contnu e Synthroid Check TSH Code(s): E03.9 - HYPOTHYROIDISM, UNSPECIFIED (9) Azotemia Assessment/Plan: gentle hydration D5 1/2 NS at 45 cc/hr Code(s): R79.89 - OTHER SPECIFIED ABNORMAL FINDINGS OF BLOOD CHEMISTRY (10) Hypomagnesemia Assessment/Plan: MAgnesium IV administered in ER, start MAgnesium oxide 400 mg daily Code(s): E83.42 - HYPOMAGNESEMIA
[2019-07-15] MEDS ORDERED: PT OWN MED DRAWER 7, Y5N ONE (21:58)
[2019-07-15] MEDS: SACUBITRIL/VALSARTAN 24 MG-26 MG TABLET PO SCH (22:22)
[2019-07-15] MEDS: MAGNESIUM OXIDE 400 MG TABLET (FP) PO SCH (22:22)
[2019-07-15] MEDS: LABETALOL HCL 100 MG TABLET (FP) PO SCH (22:22)
[2019-07-15] MEDS: ATORVASTATIN CA 10 MG TABLET (FP) PO SCH (22:22)
[2019-07-15] MEDS: hydrALAZINE HCL 25 MG TABLET (FP) PO SCH (22:22)
[2019-07-15] MEDS: INSULIN SLIDING SCALE (NOVOLOG) 1 VIAL SQ SCH (22:25)
[2019-07-16] MEDS: INSULIN SLIDING SCALE (NOVOLOG) 1 VIAL SQ SCH ×4 (06:38→21:11)
[2019-07-16] MEDS: LEVOTHYROXINE NA 100 MCG TABLET (FP) PO SCH (06:38)
[2019-07-16 06:45] LABS: BASO % 0.2 % (0-2.0); EOS % 0.5 % (0-4.5); HEMATOCRIT 27.9 % (32.4-45.2); HEMOGLOBIN 9.2 GM/dL (10.7-15.3); LYMPH % 4.8 % (8-40); MCH 28.4 pg (25.7-33.7); MCHC 32.9 g/dl (32.0-36.0); MEAN CELL VOLUME 86.3 fl (80-96); MEAN PLT VOLUME 6.8 fl (7.5-11.1); MONO % 7.5 % (3.8-10.2); PLATELET COUNT 431 K/MM3 (134-434); RBC 3.23 M/mm3 (3.60-5.2); RDW 16.9 % (11.6-15.6); WHITE BLOOD COUNT 13.6 K/mm3 (4.0-10.0)
[2019-07-16 07:17] LABS: BILIRUBIN,TOTAL 0.4 mg/dL (0.2-1); CALCIUM 7.9 mg/dL (8.5-10.1); CREATININE 0.8 mg/dL (0.55-1.3); MAGNESIUM 2.1 mg/dL (1.8-2.4); POTASSIUM 3.5 mmol/L (3.5-5.1); TOT PROT 4.8 g/dl (6.4-8.2)
[2019-07-16] MEDS ORDERED: cefTRIAXone SODIUM 1 GM VIAL ONE (08:07)
[2019-07-16] MEDS ORDERED: DEXTROSE 5%-WATER - 50 ML IVPB ONE (08:07)
--- NOTE | 2019-07-16 09:21 | PN ---
Progress Note, Physician Chief Complaint: Events noted Generalized weakness History of Present Illness: Patient was seen and examined. Awake and alert. Chart was reviewed Denies chest pain, SOB or palpitations - Current Medication List Current Medications: Active Medications Acetaminophen (Tylenol -) 500 mg PO Q6H PRN PRN Reason: FEVER Aspirin (Asa -) 81 mg PO DAILY [facility] Atorvastatin Calcium (Lipitor -) 10 mg PO HS [facility] Last Admin: 07/15/19 22:22 Dose: 10 mg Hydralazine HCl (Apresoline -) 25 mg PO BID [facility] Last Admin: 07/15/19 22:22 Dose: 25 mg Ceftriaxone Sodium 1 gm/ (Dextrose) 50 mls @ 100 mls/hr IVPB DAILY [facility] Potassium Chloride/Dextrose/Sod Cl (D5-1/2ns+20 Meq Kcl -) 20 meq in 1,000 mls @ 42 mls/hr IV ASDIR [facility] Last Admin: 07/15/19 17:45 Dose: 42 mls/hr Insulin Aspart (Novolog Vial Sliding Scale -) 1 vial SQ ACHS [facility]; Protocol Last Admin: 07/16/19 06:38 Dose: Not Given Labetalol HCl (Normodyne -) 100 mg PO BID [facility] Last Admin: 07/15/19 22:22 Dose: 100 mg Levothyroxine Sodium (Synthroid -) 100 mcg PO DAILY@0700 [facility] Last Admin: 07/16/19 06:38 Dose: 100 mcg Magnesium Oxide (Mag-Ox -) 400 mg PO BID [facility] Last Admin: 07/15/19 22:22 Dose: 400 mg Sacubitril/Valsartan (Entresto 24 Mg-26 Mg Tablet) 1 tab PO BID [facility] Last Admin: 07/15/19 22:22 Dose: 1 tab - Objective Vital Signs: Vital Signs Temperature 98.1 F 07/16/19 06:11 Pulse Rate 110 H 07/16/19 06:11 Respiratory Rate 20 07/16/19 06:11 Blood Pressure 133/74 07/16/19 06:11 O2 Sat by Pulse Oximetry (%) 97 07/16/19 05:58 Eyes: Yes: PERRL HENT: Yes: Atraumatic Neck: Yes: Supple Cardiovascular: Yes: Regular Rate and Rhythm, Tachycardia, S1, S2 Respiratory: Yes: Diminished Gastrointestinal: Yes: Normal Bowel Sounds, Soft. No: Tenderness Edema: No Additional Findings/Remarks: - Review of Systems Constitutional: denies: Chills, Fever Cardiovascular: denies: Chest Pain, Palpitations, Shortness of Breath Respiratory: denies: Cough, Hemoptysis, Orthopnea, PND, SOB, SOB on Exertion Gastrointestinal: denies: Abdominal Pain, Constipation, Diarrhea, Melena, Nausea , Rectal Bleeding, Vomiting Genitourinary: denies: Dysuria, Hematuria Musculoskeletal: denies: Back Pain Neurological: denies: Dizziness, Headache, Seizure, Syncope Labs: CBC, BMP 07/16/19 06:05 07/16/19 06:05 INR, PTT INR 1.26 (0.83-1.09) H 07/15/19 09:16 Problem List - Problems (1) Hypercholesterolemia Code(s): E78.00 - PURE HYPERCHOLESTEROLEMIA, UNSPECIFIED (2) Demand ischemia Code(s): I24.8 - OTHER FORMS OF ACUTE ISCHEMIC HEART DISEASE (3) Diabetes mellitus Code(s): E11.9 - TYPE 2 DIABETES 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 Qualifiers: Diabetes mellitus type: type 2 Diabetes mellitus complication status: without complication (4) Hypothyroidism Code(s): E03.9 - HYPOTHYROIDISM, UNSPECIFIED (5) 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 Failure to thrive referable to UTI 2. 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 Hypothyroidism 4. Hyperlipidemia 5. Type 2 DM with microalbuminuria 6. Hypertensive heart disease 7. Hypokalemia PLAN: 1. Empiric antibiotics 2. Continue ASA 81 mg QD, Labetolol 100 mg BID, Entresto 24/26 mg BID and Lipitor 10 mg QHS as hemodynamics tolerate 3. Trend troponin 4. Echocardiography report was reviewed Further plans are to follow Cristo Breen MD
[2019-07-16] MEDS: hydrALAZINE HCL 25 MG TABLET (FP) PO SCH ×2 (09:53→20:59)
[2019-07-16] MEDS: LABETALOL HCL 100 MG TABLET (FP) PO SCH ×2 (09:53→20:59)
[2019-07-16] MEDS: ASPIRIN 81 MG CHEWABLE TABLETS PO SCH (09:53)
[2019-07-16] MEDS: SACUBITRIL/VALSARTAN 24 MG-26 MG TABLET PO SCH ×2 (09:53→20:59)
[2019-07-16] MEDS: MAGNESIUM OXIDE 400 MG TABLET (FP) PO SCH ×2 (09:53→20:59)
[2019-07-16] MEDS ORDERED: CEFTRIAXONE 1 GM in DEXTROSE 5%-WATER - 50 ML IVPB SCH (10:00)
--- NOTE | 2019-07-16 13:59 | EKG ---
Test Reason : Blood Pressure : / mmHG Vent. Rate : 104 BPM Atrial Rate : 104 BPM P-R Int : 124 ms QRS Dur : 110 ms QT Int : 428 ms P-R-T Axes : -02 - 162 degrees QTc Int : 562 ms SINUS TACHYCARDIA PROLONGED QT ABNORMAL ECG WHEN COMPARED WITH ECG OF 15-JUL-2019 20:01, NO SIGNIFICANT CHANGE WAS FOUND Confirmed by REECE CAMACHO MD ([id number]) on 07/16/2019 1:59:22 PM Referred By: TIM SMITH Confirmed By:REECE CAMACHO MD
--- NOTE | 2019-07-16 14:07 | EKG ---
Test Reason : Blood Pressure : / mmHG Vent. Rate : 098 BPM Atrial Rate : 098 BPM P-R Int : 152 ms QRS Dur : 110 ms QT Int : 452 ms P-R-T Axes : 016 -16 165 degrees QTc Int : 577 ms NORMAL SINUS RHYTHM LEFT VENTRICULAR HYPERTROPHY WITH REPOLARIZATION ABNORMALITY PROLONGED QT ABNORMAL ECG WHEN COMPARED WITH ECG OF 15-JUL-2019 10:01, T WAVE INVERSION MORE EVIDENT IN LATERAL LEADS Confirmed by REECE CAMACHO MD ([id number]) on 07/16/2019 2:07:45 PM Referred By: Confirmed By:REECE CAMACHO MD
--- NOTE | 2019-07-16 15:32 | PN ---
Progress Note, Physician Chief Complaint: weakness and loose stools, poor appetite History of Present Illness: Mana calderon with PMH of HTN, DM, breast cancer, COPD was admitted for increased weakness following diarrhea. Upon admission her urine cultures were positive and her cardiac evaluation was suggestive for demand ischemia. Today she feels better and her appetite has improved. - Current Medication List Current Medications: Active Medications Acetaminophen (Tylenol -) 500 mg PO Q6H PRN PRN Reason: FEVER Aspirin (Asa -) 81 mg PO DAILY [facility] Last Admin: 07/16/19 09:53 Dose: 81 mg Atorvastatin Calcium (Lipitor -) 10 mg PO HS [facility] Last Admin: 07/15/19 22:22 Dose: 10 mg Hydralazine HCl (Apresoline -) 25 mg PO BID [facility] Last Admin: 07/16/19 09:53 Dose: 25 mg Ceftriaxone Sodium 1 gm/ (Dextrose) 50 mls @ 100 mls/hr IVPB DAILY [facility] Last Admin: 07/16/19 09:52 Dose: 100 mls/hr Potassium Chloride/Dextrose/Sod Cl (D5-1/2ns+20 Meq Kcl -) 20 meq in 1,000 mls @ 42 mls/hr IV ASDIR [facility] Last Admin: 07/15/19 17:45 Dose: 42 mls/hr Insulin Aspart (Novolog Vial Sliding Scale -) 1 vial SQ ACHS [facility]; Protocol Last Admin: 07/16/19 11:41 Dose: Not Given Labetalol HCl (Normodyne -) 100 mg PO BID [facility] Last Admin: 07/16/19 09:53 Dose: 100 mg Levothyroxine Sodium (Synthroid -) 100 mcg PO DAILY@0700 [facility] Last Admin: 07/16/19 06:38 Dose: 100 mcg Magnesium Oxide (Mag-Ox -) 400 mg PO BID [facility] Last Admin: 07/16/19 09:53 Dose: 400 mg Sacubitril/Valsartan (Entresto 24 Mg-26 Mg Tablet) 1 tab PO BID [facility] Last Admin: 07/16/19 09:53 Dose: 1 tab - Objective Vital Signs: Vital Signs Temperature 98.5 F 07/16/19 14:00 Pulse Rate 88 07/16/19 14:00 Respiratory Rate 20 07/16/19 14:00 Blood Pressure 99/51 L 07/16/19 14:00 O2 Sat by Pulse Oximetry (%) 97 07/16/19 09:00 Constitutional: Yes: No Distress, Calm Eyes: Yes: Conjunctiva Clear, EOM Intact HENT: Yes: Atraumatic, Normocephalic Neck: Yes: Supple, Trachea Midline Cardiovascular: Yes: Regular Rate and Rhythm, S1, S2 Respiratory: Yes: Regular, CTA Bilaterally, Cough Gastrointestinal: Yes: Normal Bowel Sounds, Soft, Abdomen, Obese. No: Hepatomegaly, Splenomegaly ...Rectal Exam: Yes: Deferred Breast(s): Yes: Right (mastectomy) Extremities: No: Calf Tenderness Edema: No Peripheral Pulses WNL: Yes Neurological: Yes: Alert, Oriented Psychiatric: Yes: Alert, Oriented Labs: CBC, BMP 07/16/19 06:05 07/16/19 06:05 INR, PTT INR 1.26 (0.83-1.09) H 07/15/19 09:16 Problem List - Problems (1) Demand ischemia Assessment/Plan: ASA cardiac enzymes trending down EKG serially Code(s): I24.8 - OTHER FORMS OF ACUTE ISCHEMIC HEART DISEASE (2) UTI (urinary tract infection) Assessment/Plan: urine cultures positive for Klebsiella Pneumoniae sensitive to oral antibiotics , due to poor iv access, change to Levoquin 500 mg o bid Tylnol for fever as needed Code(s): N39.0 - URINARY TRACT INFECTION, SITE NOT SPECIFIED Qualifiers: Urinary tract infection type: site unspecified Hematuria presence: without hematuria Qualified Code(s): N39.0 - Urinary tract infection, site not specified (3) Diarrhea Assessment/Plan: patient presented to ER with complaints of diarrhea but since admission she had no bowel movement stool for C difficile to be collected due to recent to rehab stay Code(s): R19.7 - DIARRHEA, UNSPECIFIED (4) Weakness generalized Assessment/Plan: paTEINT CAN NOT SELF PROPEl IN A STANDARD WHEELCHAIR BUT CAN BE PROPELLED BY A FAMILY MEMBER IN A light WHEELCHAIR ORDER TO COMPLETE adl'S Code(s): R53.1 - WEAKNESS (5) Diabetes mellitus Assessment/Plan: well controlled, HB A1 C 6.8 Code(s): E11.9 - TYPE 2 DIABETES 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 Qualifiers: Diabetes mellitus type: type 2 Diabetes mellitus complication status: without complication (6) Diabetes mellitus Code(s): E11.9 - TYPE 2 DIABETES 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 (7) Hypertension Assessment/Plan: continue LAbetalol, entresto, Hydralazine Code(s): I10 - ESSENTIAL (PRIMARY) HYPERTENSION Qualifiers: Hypertension type: essential hypertension Qualified Code(s): I10 - Essential (primary) hypertension (8) Hypothyroidism Assessment/Plan: contnu e Synthroid TSH wnl Code(s): E03.9 - HYPOTHYROIDISM, UNSPECIFIED (9) Azotemia Assessment/Plan: resolved Code(s): R79.89 - OTHER SPECIFIED ABNORMAL FINDINGS OF BLOOD CHEMISTRY
[2019-07-16] MEDS: D5-1/2NS+20 MEQ KCL - 20 MEQ/1,000 ML INFUS.BAG IV SCH (20:58)
[2019-07-16] MEDS: ATORVASTATIN CA 10 MG TABLET (FP) PO SCH (20:59)
[2019-07-17] MEDS: LEVOTHYROXINE NA 100 MCG TABLET (FP) PO SCH (06:34)
[2019-07-17] MEDS: INSULIN SLIDING SCALE (NOVOLOG) 1 VIAL SQ SCH ×4 (06:34→23:33)
[2019-07-17] MEDS ORDERED: ALBUTEROL SO4 0.083% IH SOL 2.5 MG/3 ML VIAL.NEB. NEB PRN (09:38)
--- NOTE | 2019-07-17 09:46 | PN ---
Progress Note, Physician Chief Complaint: weakness and loose stools, poor appetite History of Present Illness: 88 cristino calderon with PMH of HTN, DM, breast cancer, COPD was admitted for increased weakness following diarrhea. Upon admission her urine cultures were positive and her cardiac evaluation was suggestive for demand ischemia. Today she is coughing and has wheezes. - Current Medication List Current Medications: Active Medications Acetaminophen (Tylenol -) 500 mg PO Q6H PRN PRN Reason: FEVER Last Admin: 07/16/19 20:59 Dose: 500 mg Albuterol Sulfate (Ventolin 0.083% Nebulizer Soln -) 1 amp NEB Q6H PRN PRN Reason: SHORT OF BREATH/WHEEZING Aspirin (Asa -) 81 mg PO DAILY [facility] Last Admin: 07/16/19 09:53 Dose: 81 mg Atorvastatin Calcium (Lipitor -) 10 mg PO HS [facility] Last Admin: 07/16/19 20:59 Dose: 10 mg Hydralazine HCl (Apresoline -) 25 mg PO BID [facility] Last Admin: 07/16/19 20:59 Dose: 25 mg Insulin Aspart (Novolog Vial Sliding Scale -) 1 vial SQ [facility]; Protocol Last Admin: 07/17/19 06:34 Dose: Not Given Labetalol HCl (Normodyne -) 100 mg PO BID [facility] Last Admin: 07/16/19 20:59 Dose: 100 mg Levofloxacin (Levaquin -) 500 mg PO DAILY [facility] Levothyroxine Sodium (Synthroid -) 100 mcg PO DAILY@0700 [facility] Last Admin: 07/17/19 06:34 Dose: 100 mcg Magnesium Oxide (Mag-Ox -) 400 mg PO BID [facility] Last Admin: 07/16/19 20:59 Dose: 400 mg Sacubitril/Valsartan (Entresto 24 Mg-26 Mg Tablet) 1 tab PO BID [facility] Last Admin: 07/16/19 20:59 Dose: 1 tab - Objective Vital Signs: Vital Signs Temperature 98.3 F 07/17/19 06:00 Pulse Rate 87 07/17/19 06:00 Respiratory Rate 20 07/17/19 06:00 Blood Pressure 120/52 L 07/17/19 06:00 O2 Sat by Pulse Oximetry (%) 100 07/16/19 21:00 Constitutional: Yes: No Distress, Calm Eyes: Yes: Conjunctiva Clear, EOM Intact HENT: Yes: Atraumatic, Normocephalic Neck: Yes: Supple, Trachea Midline Cardiovascular: Yes: Regular Rate and Rhythm, S1, S2 Respiratory: Yes: Wheezes (bilaterally) Gastrointestinal: No: Splenomegaly Extremities: No: Calf Tenderness Edema: No Peripheral Pulses WNL: Yes Neurological: Yes: Alert, Oriented Psychiatric: Yes: Alert, Oriented Labs: CBC, BMP 07/16/19 06:05 07/16/19 06:05 INR, PTT INR 1.26 (0.83-1.09) H 07/15/19 09:16 - ....Imaging Chest X-ray: Pending Problem List - Problems (1) Demand ischemia Assessment/Plan: ASA cardiac enzymes trending down EKG serially Code(s): I24.8 - OTHER FORMS OF ACUTE ISCHEMIC HEART DISEASE (2) UTI (urinary tract infection) Assessment/Plan: urine cultures positive for Klebsiella Pneumoniae sensitive to oral antibiotics , due to poor iv access, change to Levoquin 500 mg o bid Tylnol for fever as needed Code(s): N39.0 - URINARY TRACT INFECTION, SITE NOT SPECIFIED Qualifiers: Urinary tract infection type: site unspecified Hematuria presence: without hematuria Qualified Code(s): N39.0 - Urinary tract infection, site not specified (3) Diarrhea Assessment/Plan: patient presented to ER with complaints of diarrhea but since admission she had no bowel movement stool for C difficile to be collected due to recent to rehab stay Code(s): R19.7 - DIARRHEA, UNSPECIFIED (4) Weakness generalized Assessment/Plan: paTEINT CAN NOT SELF PROPEl IN A STANDARD WHEELCHAIR BUT CAN BE PROPELLED BY A FAMILY MEMBER IN A light WHEELCHAIR ORDER TO COMPLETE adl'S Code(s): R53.1 - WEAKNESS (5) Diabetes mellitus Assessment/Plan: well controlled, HB A1 C 6.8 Code(s): E11.9 - TYPE 2 DIABETES 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 Qualifiers: Diabetes mellitus type: type 2 Diabetes mellitus complication status: without complication (6) Diabetes mellitus Code(s): E11.9 - TYPE 2 DIABETES 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 (7) Hypertension Code(s): I10 - ESSENTIAL (PRIMARY) HYPERTENSION Qualifiers: Hypertension type: essential hypertension Qualified Code(s): I10 - Essential (primary) hypertension (8) Hypothyroidism Code(s): E03.9 - HYPOTHYROIDISM, UNSPECIFIED (9) Azotemia Code(s): R79.89 - OTHER SPECIFIED ABNORMAL FINDINGS OF BLOOD CHEMISTRY (10) COPD (chronic obstructive pulmonary disease) Assessment/Plan: asdd Albuterol nebs CXR Code(s): J44.9 - CHRONIC OBSTRUCTIVE PULMONARY DISEASE, UNSPECIFIED
--- NOTE | 2019-07-17 10:07 | PN ---
Progress Note, Physician Chief Complaint: Events noted Generalized weakness History of Present Illness: Patient was seen and examined. Awake and alert. Chart was reviewed Denies chest pain, SOB or palpitations - Current Medication List Current Medications: Active Medications Acetaminophen (Tylenol -) 500 mg PO Q6H PRN PRN Reason: FEVER Last Admin: 07/16/19 20:59 Dose: 500 mg Albuterol Sulfate (Ventolin 0.083% Nebulizer Soln -) 1 amp NEB Q6H PRN PRN Reason: SHORT OF BREATH/WHEEZING Aspirin (Asa -) 81 mg PO DAILY [facility] Last Admin: 07/16/19 09:53 Dose: 81 mg Atorvastatin Calcium (Lipitor -) 10 mg PO HS [facility] Last Admin: 07/16/19 20:59 Dose: 10 mg Hydralazine HCl (Apresoline -) 25 mg PO BID [facility] Last Admin: 07/16/19 20:59 Dose: 25 mg Insulin Aspart (Novolog Vial Sliding Scale -) 1 vial SQ [facility]; Protocol Last Admin: 07/17/19 06:34 Dose: Not Given Labetalol HCl (Normodyne -) 100 mg PO BID [facility] Last Admin: 07/16/19 20:59 Dose: 100 mg Levofloxacin (Levaquin -) 500 mg PO DAILY [facility] Levothyroxine Sodium (Synthroid -) 100 mcg PO DAILY@0700 [facility] Last Admin: 07/17/19 06:34 Dose: 100 mcg Magnesium Oxide (Mag-Ox -) 400 mg PO BID [facility] Last Admin: 07/16/19 20:59 Dose: 400 mg Sacubitril/Valsartan (Entresto 24 Mg-26 Mg Tablet) 1 tab PO BID [facility] Last Admin: 07/16/19 20:59 Dose: 1 tab - Objective Vital Signs: Vital Signs Temperature 98.3 F 07/17/19 06:00 Pulse Rate 87 07/17/19 06:00 Respiratory Rate 20 07/17/19 06:00 Blood Pressure 120/52 L 07/17/19 06:00 O2 Sat by Pulse Oximetry (%) 100 07/16/19 21:00 Eyes: Yes: PERRL HENT: Yes: Atraumatic Neck: Yes: Supple Cardiovascular: Yes: Regular Rate and Rhythm, S1, S2 Respiratory: Yes: Diminished Gastrointestinal: Yes: Normal Bowel Sounds, Soft. No: Tenderness Edema: No Additional Findings/Remarks: - Review of Systems Constitutional: denies: Chills, Fever Cardiovascular: denies: Chest Pain, Palpitations, Shortness of Breath Respiratory: denies: Cough, Hemoptysis, Orthopnea, PND, SOB, SOB on Exertion Gastrointestinal: denies: Abdominal Pain, Constipation, Diarrhea, Melena, Nausea , Rectal Bleeding, Vomiting Genitourinary: denies: Dysuria, Hematuria Musculoskeletal: denies: Back Pain Neurological: denies: Dizziness, Headache, Seizure, Syncope Labs: CBC, BMP 07/16/19 06:05 07/16/19 06:05 Problem List - Problems (1) Hypercholesterolemia Code(s): E78.00 - PURE HYPERCHOLESTEROLEMIA, UNSPECIFIED (2) Demand ischemia Code(s): I24.8 - OTHER FORMS OF ACUTE ISCHEMIC HEART DISEASE (3) Diabetes mellitus Code(s): E11.9 - TYPE 2 DIABETES 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 Qualifiers: Diabetes mellitus type: type 2 Diabetes mellitus complication status: without complication (4) Hypothyroidism Code(s): E03.9 - HYPOTHYROIDISM, UNSPECIFIED (5) 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 Failure to thrive referable to UTI 2. 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 Hypothyroidism 4. Hyperlipidemia 5. Type 2 DM with microalbuminuria 6. Hypertensive heart disease 7. Hypokalemia PLAN: 1. Empiric antibiotics 2. Continue ASA 81 mg QD, Labetolol 100 mg BID, Entresto 24/26 mg BID, Hydralazine 25 mg BID and Lipitor 10 mg QHS as hemodynamics tolerate 3. Trend troponin (trending down) Continue supportive care Further plans are to follow Cristo Breen MD
[2019-07-17] MEDS: hydrALAZINE HCL 25 MG TABLET (FP) PO SCH ×2 (10:32→23:32)
[2019-07-17] MEDS: ASPIRIN 81 MG CHEWABLE TABLETS PO SCH (10:32)
[2019-07-17] MEDS: LABETALOL HCL 100 MG TABLET (FP) PO SCH ×2 (10:33→23:32)
[2019-07-17] MEDS: MAGNESIUM OXIDE 400 MG TABLET (FP) PO SCH ×2 (10:33→23:32)
[2019-07-17] MEDS: SACUBITRIL/VALSARTAN 24 MG-26 MG TABLET PO SCH ×2 (10:33→23:32)
[2019-07-17] MEDS ORDERED: PT OWN MED DRAWER 7, Y5N ONE (21:19)
[2019-07-17] MEDS: ATORVASTATIN CA 10 MG TABLET (FP) PO SCH (23:32)
[2019-07-18] MEDS: LEVOTHYROXINE NA 100 MCG TABLET (FP) PO SCH (06:03)
[2019-07-18] MEDS: INSULIN SLIDING SCALE (NOVOLOG) 1 VIAL SQ SCH ×4 (06:03→22:26)
[2019-07-18 07:21] LABS: ALBUMIN 1.8 g/dl (3.4-5.0); BILIRUBIN,TOTAL 0.6 mg/dL (0.2-1); BLOOD UREA NITROGEN 14.1 mg/dL (7-18); CALCIUM 7.7 mg/dL (8.5-10.1); CREATININE 0.7 mg/dL (0.55-1.3); POTASSIUM 4.2 mmol/L (3.5-5.1); TOT PROT 4.6 g/dl (6.4-8.2)
[2019-07-18 07:34] LABS: BASO % 0.6 % (0-2.0); HEMATOCRIT 26.5 % (32.4-45.2); HEMOGLOBIN 8.9 GM/dL (10.7-15.3); LYMPH % 8.2 % (8-40); MCH 28.9 pg (25.7-33.7); MCHC 33.4 g/dl (32.0-36.0); MEAN CELL VOLUME 86.4 fl (80-96); MEAN PLT VOLUME 7.1 fl (7.5-11.1); MONO % 12.4 % (3.8-10.2); NEUT % 76.8 % (42.8-82.8); PLATELET COUNT 401 K/MM3 (134-434); RBC 3.07 M/mm3 (3.60-5.2); RDW 16.6 % (11.6-15.6); WHITE BLOOD COUNT 8.4 K/mm3 (4.0-10.0)
[2019-07-18] MEDS ORDERED: PT OWN MED DRAWER 7, Y5N ONE (09:06)
--- NOTE | 2019-07-18 09:52 | PN ---
Progress Note, Physician Chief Complaint: Events noted Generalized weakness persists but slowly improving History of Present Illness: Patient was seen and examined. Awake and alert. Chart was reviewed Denies chest pain, SOB or palpitations - Current Medication List Current Medications: Active Medications Acetaminophen (Tylenol -) 500 mg PO Q6H PRN PRN Reason: FEVER Last Admin: 07/16/19 20:59 Dose: 500 mg Albuterol Sulfate (Ventolin 0.083% Nebulizer Soln -) 1 amp NEB Q6H PRN PRN Reason: SHORT OF BREATH/WHEEZING Aspirin (Asa -) 81 mg PO DAILY [facility] Last Admin: 07/17/19 10:32 Dose: 81 mg Atorvastatin Calcium (Lipitor -) 10 mg PO HS [facility] Last Admin: 07/17/19 23:32 Dose: 10 mg Hydralazine HCl (Apresoline -) 25 mg PO BID [facility] Last Admin: 07/17/19 23:32 Dose: 25 mg Insulin Aspart (Novolog Vial Sliding Scale -) 1 vial SQ ACHS [facility]; Protocol Last Admin: 07/18/19 06:03 Dose: Not Given Labetalol HCl (Normodyne -) 100 mg PO BID [facility] Last Admin: 07/17/19 23:32 Dose: 100 mg Levofloxacin (Levaquin -) 500 mg PO DAILY [facility] Levothyroxine Sodium (Synthroid -) 100 mcg PO DAILY@0700 [facility] Last Admin: 07/18/19 06:03 Dose: 100 mcg Magnesium Oxide (Mag-Ox -) 400 mg PO BID [facility] Last Admin: 07/17/19 23:32 Dose: 400 mg Sacubitril/Valsartan (Entresto 24 Mg-26 Mg Tablet) 1 tab PO BID [facility] Last Admin: 07/17/19 23:32 Dose: 1 tab - Objective Vital Signs: Vital Signs Temperature 98.3 F 07/18/19 06:00 Pulse Rate 96 H 07/18/19 06:00 Respiratory Rate 20 07/18/19 06:00 Blood Pressure 148/71 07/18/19 06:00 O2 Sat by Pulse Oximetry (%) 97 07/17/19 22:00 Eyes: Yes: PERRL HENT: Yes: Atraumatic Neck: Yes: Supple Cardiovascular: Yes: Regular Rate and Rhythm, S1, S2 Respiratory: Yes: Diminished Gastrointestinal: Yes: Normal Bowel Sounds, Soft. No: Tenderness Edema: Yes Additional Findings/Remarks: - Review of Systems Constitutional: denies: Chills, Fever Cardiovascular: denies: Chest Pain, Palpitations, Shortness of Breath Respiratory: denies: Cough, Hemoptysis, Orthopnea, PND, SOB, SOB on Exertion Gastrointestinal: denies: Abdominal Pain, Constipation, Diarrhea, Melena, Nausea , Rectal Bleeding, Vomiting Genitourinary: denies: Dysuria, Hematuria Musculoskeletal: denies: Back Pain Neurological: denies: Dizziness, Headache, Seizure, Syncope Labs: CBC, BMP 07/18/19 06:00 07/18/19 06:00 Problem List - Problems (1) Hypercholesterolemia Code(s): E78.00 - PURE HYPERCHOLESTEROLEMIA, UNSPECIFIED (2) Demand ischemia Code(s): I24.8 - OTHER FORMS OF ACUTE ISCHEMIC HEART DISEASE (3) Diabetes mellitus Code(s): E11.9 - TYPE 2 DIABETES 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 Qualifiers: Diabetes mellitus type: type 2 Diabetes mellitus complication status: without complication (4) Hypothyroidism Code(s): E03.9 - HYPOTHYROIDISM, UNSPECIFIED (5) 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 Failure to thrive referable to UTI 2. 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 Hypothyroidism 4. Hyperlipidemia 5. Type 2 DM with microalbuminuria 6. Hypertensive heart disease 7. Hypokalemia PLAN: 1. Empiric antibiotics 2. Continue ASA 81 mg QD, Labetolol 100 mg BID, Entresto 24/26 mg BID, Hydralazine 25 mg BID and Lipitor 10 mg QHS as hemodynamics tolerate 3. troponin trending down Continue supportive care Further plans are to follow Cristo Breen MD
[2019-07-18] MEDS: hydrALAZINE HCL 25 MG TABLET (FP) PO SCH ×2 (10:00→22:26)
[2019-07-18] MEDS: ASPIRIN 81 MG CHEWABLE TABLETS PO SCH (10:00)
[2019-07-18] MEDS: LABETALOL HCL 100 MG TABLET (FP) PO SCH ×2 (10:00→22:26)
[2019-07-18] MEDS: SACUBITRIL/VALSARTAN 24 MG-26 MG TABLET PO SCH ×2 (10:00→22:26)
[2019-07-18] MEDS: MAGNESIUM OXIDE 400 MG TABLET (FP) PO SCH ×2 (10:00→22:26)
--- NOTE | 2019-07-18 15:45 | PN ---
Progress Note, Physician Chief Complaint: weakness and appetite are better no loose bowel movements today anxious History of Present Illness: 88 yo femnmale with PMH of HTN, DM,rt breast cancer, COPD was admitted for increased weakness following diarrhea. Upon admission her urine cultures were positive and her cardiac evaluation was suggestive for demand ischemia. SHe denies chest pain, palpitations, cough or wheezing . - Current Medication List Current Medications: Active Medications Acetaminophen (Tylenol -) 500 mg PO Q6H PRN PRN Reason: FEVER Last Admin: 07/16/19 20:59 Dose: 500 mg Albuterol Sulfate (Ventolin 0.083% Nebulizer Soln -) 1 amp NEB Q6H PRN PRN Reason: SHORT OF BREATH/WHEEZING Aspirin (Asa -) 81 mg PO DAILY [facility] Last Admin: 07/18/19 10:00 Dose: 81 mg Atorvastatin Calcium (Lipitor -) 10 mg PO HS [facility] Last Admin: 07/17/19 23:32 Dose: 10 mg Hydralazine HCl (Apresoline -) 25 mg PO BID [facility] Last Admin: 07/18/19 10:00 Dose: 25 mg Insulin Aspart (Novolog Vial Sliding Scale -) 1 vial SQ [facility]; Protocol Last Admin: 07/18/19 11:56 Dose: Not Given Labetalol HCl (Normodyne -) 100 mg PO BID [facility] Last Admin: 07/18/19 10:00 Dose: 100 mg Levofloxacin (Levaquin -) 500 mg PO DAILY [facility] Last Admin: 07/18/19 10:00 Dose: 500 mg Levothyroxine Sodium (Synthroid -) 100 mcg PO DAILY@0700 [facility] Last Admin: 07/18/19 06:03 Dose: 100 mcg Magnesium Oxide (Mag-Ox -) 400 mg PO BID [facility] Last Admin: 07/18/19 10:00 Dose: 400 mg Metformin HCl (Glucophage Xr -) 500 mg PO DAILY@2200 [facility] Sacubitril/Valsartan (Entresto 24 Mg-26 Mg Tablet) 1 tab PO BID [facility] Last Admin: 07/18/19 10:00 Dose: 1 tab - Objective Vital Signs: Vital Signs Temperature 98.4 F 07/18/19 14:00 Pulse Rate 89 07/18/19 14:00 Respiratory Rate 20 07/18/19 14:00 Blood Pressure 132/63 07/18/19 14:00 O2 Sat by Pulse Oximetry (%) 97 07/17/19 22:00 Constitutional: Yes: No Distress, Calm Eyes: Yes: Conjunctiva Clear, EOM Intact HENT: Yes: Atraumatic, Normocephalic Neck: Yes: Supple, Trachea Midline Cardiovascular: Yes: Regular Rate and Rhythm, S1, S2 Respiratory: Yes: Regular, CTA Bilaterally, Wheezes (scattered at bases). No : SOB Gastrointestinal: Yes: Normal Bowel Sounds, Soft, Abdomen, Obese. No: Melena, Splenomegaly Genitourinary: Yes: WNL Extremities: No: Calf Tenderness Edema: No Peripheral Pulses WNL: Yes Integumentary: Yes: WNL Neurological: Yes: Alert, Oriented Psychiatric: Yes: Alert, Oriented Labs: CBC, BMP 07/18/19 06:00 07/18/19 06:00 INR, PTT INR 1.26 (0.83-1.09) H 07/15/19 09:16 - ....Imaging Chest X-ray: Other (no pleural effusion, no infiltrate, cordiomegaly) Problem List - Problems (1) Demand ischemia Assessment/Plan: ASA cardiac enzymes trending down EKG serially unchanged Code(s): I24.8 - OTHER FORMS OF ACUTE ISCHEMIC HEART DISEASE (2) UTI (urinary tract infection) Assessment/Plan: urine cultures positive for Klebsiella Pneumoniae sensitive to oral antibiotics , due to poor iv access, change to Levoquin 500 mg daily WBS normalized Tylnol for fever as needed Code(s): N39.0 - URINARY TRACT INFECTION, SITE NOT SPECIFIED Qualifiers: Urinary tract infection type: site unspecified Hematuria presence: without hematuria Qualified Code(s): N39.0 - Urinary tract infection, site not specified (3) Diarrhea Assessment/Plan: patient presented to ER with complaints of diarrhea but since admission she had no bowel movement stool for C difficile to be collected due to recent to rehab stay Code(s): R19.7 - DIARRHEA, UNSPECIFIED (4) Weakness generalized Assessment/Plan: paTEINT CAN NOT SELF PROPEl IN A STANDARD WHEELCHAIR BUT CAN BE PROPELLED BY A FAMILY MEMBER IN A light WHEELCHAIR ORDER TO COMPLETE adl'S patient needs also a bed side commode due to poor mobility Code(s): R53.1 - WEAKNESS (5) Diabetes mellitus Assessment/Plan: Glucophage 500 ER mg at hs Code(s): E11.9 - TYPE 2 DIABETES 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 Qualifiers: Diabetes mellitus type: type 2 Diabetes mellitus complication status: without complication (6) Diabetes mellitus Code(s): E11.9 - TYPE 2 DIABETES 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 (7) Hypertension Code(s): I10 - ESSENTIAL (PRIMARY) HYPERTENSION Qualifiers: Hypertension type: essential hypertension Qualified Code(s): I10 - Essential (primary) hypertension (8) Hypothyroidism Code(s): E03.9 - HYPOTHYROIDISM, UNSPECIFIED (9) Azotemia Code(s): R79.89 - OTHER SPECIFIED ABNORMAL FINDINGS OF BLOOD CHEMISTRY (10) COPD (chronic obstructive pulmonary disease) Code(s): J44.9 - CHRONIC OBSTRUCTIVE PULMONARY DISEASE, UNSPECIFIED
--- NOTE | 2019-07-18 16:30 | EKG ---
Test Reason : Blood Pressure : / mmHG Vent. Rate : 089 BPM Atrial Rate : 089 BPM P-R Int : 202 ms QRS Dur : 112 ms QT Int : 400 ms P-R-T Axes : 052 -14 168 degrees QTc Int : 486 ms SINUS RHYTHM WITH OCCASIONAL PREMATURE VENTRICULAR COMPLEXES LEFT VENTRICULAR HYPERTROPHY WITH REPOLARIZATION ABNORMALITY ABNORMAL ECG WHEN COMPARED WITH ECG OF 16-JUL-2019 08:17, PREMATURE VENTRICULAR COMPLEXES ARE NOW PRESENT QT HAS SHORTENED Confirmed by SUKI VEGA, CHI ([id number]) on 07/18/2019 4:29:43 PM Referred By: Julio SOTO Confirmed By:CHI COHN MD
[2019-07-18] MEDS: ATORVASTATIN CA 10 MG TABLET (FP) PO SCH (22:26)
[2019-07-19] MEDS: INSULIN SLIDING SCALE (NOVOLOG) 1 VIAL SQ SCH ×3 (06:15→17:47)
[2019-07-19] MEDS: LEVOTHYROXINE NA 100 MCG TABLET (FP) PO SCH (06:16)
[2019-07-19] MEDS ORDERED: PT OWN MED DRAWER 7, Y5N ONE ×2 (08:14→09:40)
[2019-07-19] MEDS: MAGNESIUM OXIDE 400 MG TABLET (FP) PO SCH (09:39)
[2019-07-19] MEDS: hydrALAZINE HCL 25 MG TABLET (FP) PO SCH (09:39)
[2019-07-19] MEDS: ASPIRIN 81 MG CHEWABLE TABLETS PO SCH (09:39)
[2019-07-19] MEDS: LABETALOL HCL 100 MG TABLET (FP) PO SCH (09:39)
[2019-07-19] MEDS: SACUBITRIL/VALSARTAN 24 MG-26 MG TABLET PO SCH (09:41)
--- NOTE | 2019-07-19 14:30 | PN ---
Progress Note, Physician Chief Complaint: Events noted Generalized weakness improved Not in distress History of Present Illness: Patient was seen and examined. Awake and alert. Chart was reviewed Denies chest pain, SOB or palpitations - Current Medication List Current Medications: Active Medications Acetaminophen (Tylenol -) 500 mg PO Q6H PRN PRN Reason: FEVER Last Admin: 07/16/19 20:59 Dose: 500 mg Albuterol Sulfate (Ventolin 0.083% Nebulizer Soln -) 1 amp NEB Q6H PRN PRN Reason: SHORT OF BREATH/WHEEZING Aspirin (Asa -) 81 mg PO DAILY [facility] Last Admin: 07/19/19 09:39 Dose: 81 mg Atorvastatin Calcium (Lipitor -) 10 mg PO HS [facility] Last Admin: 07/18/19 22:26 Dose: 10 mg Hydralazine HCl (Apresoline -) 25 mg PO BID [facility] Last Admin: 07/19/19 09:39 Dose: 25 mg Insulin Aspart (Novolog Vial Sliding Scale -) 1 vial SQ [facility]; Protocol Last Admin: 07/19/19 11:28 Dose: Not Given Labetalol HCl (Normodyne -) 100 mg PO BID [facility] Last Admin: 07/19/19 09:39 Dose: 100 mg Levofloxacin (Levaquin -) 500 mg PO DAILY [facility] Last Admin: 07/19/19 09:39 Dose: 500 mg Levothyroxine Sodium (Synthroid -) 100 mcg PO DAILY@0700 [facility] Last Admin: 07/19/19 06:16 Dose: 100 mcg Magnesium Oxide (Mag-Ox -) 400 mg PO BID [facility] Last Admin: 07/19/19 09:39 Dose: 400 mg Metformin HCl (Glucophage Xr -) 500 mg PO DAILY@2200 [facility] Last Admin: 07/18/19 22:26 Dose: 500 mg Sacubitril/Valsartan (Entresto 24 Mg-26 Mg Tablet) 1 tab PO BID [facility] Last Admin: 07/19/19 09:41 Dose: 1 tab - Objective Vital Signs: Vital Signs Temperature 98.0 F 07/19/19 09:37 Pulse Rate 95 H 07/19/19 09:37 Respiratory Rate 18 07/19/19 09:37 Blood Pressure 146/62 07/19/19 09:37 O2 Sat by Pulse Oximetry (%) 99 07/19/19 09:00 Eyes: Yes: PERRL HENT: Yes: Atraumatic Neck: Yes: Supple Cardiovascular: Yes: Regular Rate and Rhythm, S1, S2 Respiratory: Yes: Diminished Gastrointestinal: Yes: Normal Bowel Sounds, Soft. No: Tenderness Edema: Yes Additional Findings/Remarks: - Review of Systems Constitutional: denies: Chills, Fever Cardiovascular: denies: Chest Pain, Palpitations, Shortness of Breath Respiratory: denies: Cough, Hemoptysis, Orthopnea, PND, SOB, SOB on Exertion Gastrointestinal: denies: Abdominal Pain, Constipation, Diarrhea, Melena, Nausea , Rectal Bleeding, Vomiting Genitourinary: denies: Dysuria, Hematuria Musculoskeletal: denies: Back Pain Neurological: denies: Dizziness, Headache, Seizure, Syncope Labs: CBC, BMP 07/18/19 06:00 07/18/19 06:00 INR, PTT INR 1.26 (0.83-1.09) H 07/15/19 09:16 Problem List - Problems (1) Hypercholesterolemia Code(s): E78.00 - PURE HYPERCHOLESTEROLEMIA, UNSPECIFIED (2) Demand ischemia Code(s): I24.8 - OTHER FORMS OF ACUTE ISCHEMIC HEART DISEASE (3) Diabetes mellitus Code(s): E11.9 - TYPE 2 DIABETES 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 Qualifiers: Diabetes mellitus type: type 2 Diabetes mellitus complication status: without complication (4) Hypothyroidism Code(s): E03.9 - HYPOTHYROIDISM, UNSPECIFIED (5) 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 Failure to thrive referable to UTI 2. 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 Hypothyroidism 4. Hyperlipidemia 5. Type 2 DM with microalbuminuria 6. Hypertensive heart disease 7. Hypokalemia PLAN: 1. Empiric antibiotics 2. Continue ASA 81 mg QD, Labetolol 100 mg BID, Entresto 24/26 mg BID, Hydralazine 25 mg BID and Lipitor 10 mg QHS as hemodynamics tolerate 3. Discharge planning Cristo Breen MD
--- NOTE | 2019-07-19 15:34 | DS ---
Physical Examination Vital Signs: Vital Signs Temperature 98.4 F 07/19/19 14:00 Pulse Rate 93 H 07/19/19 14:00 Respiratory Rate 18 07/19/19 09:37 Blood Pressure 157/83 07/19/19 14:00 O2 Sat by Pulse Oximetry (%) 99 07/19/19 09:00 Constitutional: Yes: No Distress, Calm Eyes: Yes: Conjunctiva Clear HENT: Yes: Atraumatic, Normocephalic Gastrointestinal: Yes: Abdomen, Obese. No: Hepatomegaly Labs: CBC, BMP 07/18/19 06:00 07/18/19 06:00 Discharge Summary Reason For Visit: WEAKNESS Current Active Problems Azotemia (Acute) COPD (chronic obstructive pulmonary disease) (Acute) Demand ischemia (Acute) Diabetes mellitus (Acute) Diabetes mellitus (Acute) Diarrhea (Acute) Hypercholesterolemia (Acute) Hyperlipidemia associated with type 2 diabetes mellitus (Acute) Hypothyroidism (Acute) Systolic dysfunction without heart failure (Acute) Procedures: Principal: iv antibiotics and hydration Condition: Stable - Instructions Disposition: HOME - Home Medications Comprehensive Discharge Medication List: Ambulatory Orders Labetalol HCl [Normodyne -] 100 mg PO BID 04/14/19 Latanoprost/Pf [Latanoprost 0.005% Eye Drop] 7.5 ml OP DAILY 04/14/19 Levothyroxine [Synthroid -] 100 mcg PO DAILY 04/14/19 Sacubitril/Valsartan [Entresto 97 mg-103 mg Tablet] 1 each PO BID 04/14/19 Simvastatin [Zocor -] 10 mg PO HS 04/14/19 Albuterol 0.083% Nebulizer Mervat [Ventolin 0.083% Nebulizer Soln -] 1 amp NEB Q6H PRN 7 Days #30 amp 07/19/19 Aspirin [ASA -] 81 mg PO DAILY tab.chew 07/19/19 Labetalol HCl [Normodyne -] 100 mg PO BID tablet 07/19/19 Levothyroxine [Synthroid -] 100 mcg PO DAILY@0700 tablet 07/19/19 Magnesium Oxide [Mag-Ox -] 400 mg PO BID 30 Days #60 tablet 07/19/19 Sacubitril/Valsartan [Entresto 24 mg-26 mg Tablet] 1 tab PO BID tablet hydrALAZINE HCL [Apresoline -] 25 mg PO BID tablet 07/19/19 levoFLOXacin [Levaquin -] 500 mg PO DAILY 7 Days #7 tablet 07/19/19 metFORMIN XR [Glucophage Xr -] 500 mg PO DAILY@2200 tab.sr.24h 07/19/19
[2019-07-19 18:48] VITALS: BP 108/58; PULSE 100; TEMP 98.3
== END 2019-07-19 18:53 | disposition home or self-care (01) | DRG 690 ==
LOC: JER 08:54 → JERBED 12:14 → J4W 13:19
PROVIDERS: ADMIT Internal Medicine; ATTEND Internal Medicine
DX: N39.0 Urinary tract infection, site not specified (principal); I42.8 Other cardiomyopathies; I10 Essential (primary) hypertension; E11.69 Type 2 diabetes mellitus with other specified complication; J44.9 Chronic obstructive pulmonary disease, unspecified; R80.9 Proteinuria, unspecified; E78.5 Hyperlipidemia, unspecified; E03.9 Hypothyroidism, unspecified; R50.9 Fever, unspecified; R00.0 Tachycardia, unspecified; M54.5 Low back pain; K59.09 Other constipation; R62.7 Adult failure to thrive; Z68.34 Body mass index [BMI] 34.0-34.9, adult; E87.6 Hypokalemia; E83.42 Hypomagnesemia; R79.89 Other specified abnormal findings of blood chemistry; R19.7 Diarrhea, unspecified; I11.9 Hypertensive heart disease without heart failure; B96.1 Klebsiella pneumoniae [K. pneumoniae] as the cause of diseases classified elsewhere; Z85.3 Personal history of malignant neoplasm of breast
CPT/HCPCS: 36415; 71045-TC-FY; 80048; 80053; 80061; 81003; 82550; 82962; 83036; 83605; 83721; 83735; 84443; 84484; 85025; 85610; 85730; 86850; 86900; 86901; 87040; 87086; 87186; 87324; 87449; 93005; 93010; 93306-TC; 97116-GP; 97161-GP; 99285-25; J7030